=== PATIENT | male | born 1945 | race Caucasian/White ===

== ENCOUNTER 2017-04-14 10:18 | Inpatient (IN) ==
[2017-04-14] MEDS ORDERED: diphenhydrAMINE CAP 25 MG CAPSULE PO ONE (10:30)
[2017-04-14] MEDS ORDERED: ASPIRIN 325 MG TABLET PO ONE (10:30)
[2017-04-14] MEDS ORDERED: SODIUM CHLORIDE 0.45% 1,000 ML IV SCH (10:30)
[2017-04-14] MEDS ORDERED: DIAZEPAM 5 MG TABLET PO ONE (10:30)
--- NOTE | 2017-04-14 11:13 | EKG Report ---
Stationary ECG Study [facility] Test Date: 04/14/2017 11:15:19 AM Pat Name: JOSE JASSO Department: Room: C009 Gender: M Inside Sales Professional: : 1945 Requested by: Herber Mcgill Order Number: [id number] Reading MD: ENRRIQUE WASHBURN Intervals [place] Rate: 71 P: 55 VT: 161 QRS: 52 QRSD: 86 T: 100 QT: 387 QTc: 409 Interpretive Statements SINUS RHYTHM Electronically Signed On 04-14-17 13:13:31 CDT by ENRRIQUE WASHBURN [email or web address]
--- NOTE | 2017-04-14 11:24 | History and Physical Update ---
Sedation H&P Update - History and Physical H&P was reviewed, the patient examined and there: are no changes in the patients condition since last H&P was completed. (Patient had echocardiogram that showed what appears to be inferolateral wall hypokinesis but overall preserved ejection fraction) - Dictation Physical: refer to scanned H&P - Physical Exam Mental Status: alert and oriented Heart: regular rate and rhythm Lung: clear to auscultation Abdomen: within normal limits Vitals: within normal limits - Sedation Plan for Sedation: moderate Patient Consent: Procedure disscussed with patient and patinet has consented., Risks and benefits were discussed with patient,including infection,, bleeding, injury to surrounding structures, seizure, temporary nerve, Patient understands and accepts potential risks/benefits and agrees to, proceed. ASA Class: II Airway Assessment: Class III: Soft palate, base of uvula visible
--- NOTE | 2017-04-14 12:50 | XRay Report ---
XR chest 1V portable Indication: Chest pain Comparison: None Technique: Single frontal view of the chest. Findings: Borderline heart size. 1 cm pulmonary nodule versus sclerotic right rib [address] chest for further evaluation. No jesús pulmonary edema. Visualized osseous and surrounding soft tissue structures demonstrate no acute abnormality. Multilevel bridging osteophytes of the thoracic spine. IMPRESSION: As above. PROCEDURE INTERPRETED AT [facility] DEPARTMENT OF RADIOLOGY Final Report Signed by: Dr Lance Adamson
[2017-04-14] MEDS ORDERED: VERAPAMIL 5 MG/2 ML VIAL ONE (12:52)
[2017-04-14] MEDS ORDERED: MIDAZOLAM 2 MG/2 ML VIAL ONE (12:52)
[2017-04-14] MEDS ORDERED: HEPARIN/NACL 0.9% 2 UNITS/ML 1,000 ML IV ONE (12:52)
[2017-04-14] MEDS ORDERED: LIDOCAINE 1% 20 ML VIAL ONE (12:52)
[2017-04-14] MEDS ORDERED: NITROGLYCERIN DRIP 50 MG/250 ML BOTTLE IV ONE (12:52)
[2017-04-14] MEDS ORDERED: fentaNYL 100 MCG/2 ML VIAL ONE (12:52)
[2017-04-14] MEDS ORDERED: ENOXAPARIN 60 MG/0.6 ML SYRINGE ONE (13:19)
[2017-04-14] MEDS ORDERED: ACETAMINOPHEN 325 MG TABLET PO PRN (13:43)
[2017-04-14] MEDS ORDERED: MORPHINE 2 MG/1 ML SYRINGE IV PRN (13:43)
[2017-04-14] MEDS ORDERED: NITROGLYCERIN SL 0.4 MG TABLET SL PRN (13:43)
[2017-04-14] MEDS ORDERED: hydrALAZINE 20 MG/1 ML VIAL IV PRN (13:46)
--- NOTE | 2017-04-14 13:54 | Cardiac Catheterization ---
Date of Procedure:: 04/14/17 Pre-op Diagnosis: Unstable angina and regional wall motion abnormality on transthoracic echocardiogram Post-op diagnosis: other (Severe three-vessel coronary artery disease) Procedure: Procedures: 1. Selective left and right angiography 2. Left heart catheterization resting hemodynamics After signed an informed consent was obtained, the patient was prepped and draped in standard fashion for right radial access. Time out was recorded. 0.5 mL of 1% lidocaine were infiltrated in the skin and subcutaneous tissue overlying the right radial artery and Seldinger technique was utilized with a Angiocath to obtain access to the right radial artery. A [place] glide wire was then advanced into the midforearm under fluoroscopic guidance. The Angiocath was removed and a 6 Wallisian Terumo glide sheath was placed over the Glidewire. The sheath was aspirated and flushed and then 5 mg of verapamil and 200 g of nitroglycerin were given through the sheath. At this time an 035 J-wire was used to guide a [place] 6 Wallisian catheter into the central aorta across the aortic valve and into the ventricle. Pressure measurements and pullback measurements were obtained. The [place] catheter was then used to engage the left main coronary artery and multiple orthogonal views of the left system were obtained. The catheter then was torqued into the right coronary artery and orthogonal views of the right system were obtained. The catheter was then exchanged over the wire. The sheath was aspirated and flushed. The bottom precipitator operator reviewed the films. And a TR band was placed over the glide sheath and used for hemostasis. Total contrast exposure 95 cc of omnipaque Total x-ray exposure: 4.5 min fluoroscopy time and 308 mGy air Kerma Findings: 1. EF 60-65% by transthoracic echo with regional wall motion or mildly inferolateral ventricular myocardia 2. Hemodynamics LV: 106/5 EDP:10 Ao:104/54 3. Left main: Angiographically normal 4: Left anterior descending artery: The large vessel is diffusely diseased and has at least 3 locations greater than 80% to appear to be approach 90%. There is a small diagonal with his long diffusely diseased in the proximal segment is small diagonal but is the largest of the diagonal is therefore considered to be diagonal #1. It is highly diffusely diseased. 5: Left circumflex artery: Is a nondominant vessel there is a large obtuse marginal it bifurcates shortly after leaving AV groove it is subtotally occluded at the departure from the AV groove there is COMFORT II flow in both branches. This area subtotal occluded these are moderate size obtuse marginals 6: Right coronary artery: Is a very large dominant vessel the year is a long 90 % stenosis in the AV groove portion of the left circumflex 7: There is mild atheroma in the left subclavian but no high-grade stenosis the NADIA appears to be mature and very large. It is free of significant disease Assessment: 1. Severe three-vessel coronary disease with COMFORT II flow in the distribution of the left circumflex and critical stenoses in all 3 major branches as described above 2. Preserved ejection fraction of 65% by transthoracic echo with regional wall motion and remount the inferolateral ventricular myocardium consistent with the patient's anatomy 3. Obesity 4. Uncontrolled hypertension 5. Dyslipidemia 6. Obstructive sleep apnea Plan: 1. Therapeutic lifestyle changes. 2. Referral for coronary artery bypass grafting 3. Admit to the hospital due to progressive or unstable angina and regional wall motion abnormality 4. Aggressive medical therapy 5. Cardiac rehab consultation and consultation with diabetic education due to glucose intolerance 6. The patient will need polysomnography. We will consult Dr. Covarrubias Implants: None Anesthesia: moderate conscious sedation Surgeon / Physician: Aide Ho Photographic Enlarger Operator: none Estimated blood loss: none Specimens: none sent Condition: stable Disposition: floor - Medications / Follow-up
--- NOTE | 2017-04-14 16:11 | Cardiothoracic Progress Note ---
Cardiothoracic Subjective Interval history: Patient is a 71-year-old man who underwent cardiac catheterization this morning for recent onset of exertional chest discomfort. Cardiac catheterization demonstrated severe three-vessel coronary disease and the patient has been advised to remain in the hospital for surgery at the first possible time. I reviewed his catheterization films and agree with this recommendation and have discussed it with the patient and his and daughter. They are in agreement with proceeding on Monday. Exam (Progress Note) - Constitutional Vitals: Period Temp Pulse Resp BP Sys/Ryan Pulse Ox Last 24 Hr 97.4 F-97.8 F 62-82 16-20 107-156/63-84 95-100 Specialty Discharge - Follow Up or Referrals
--- NOTE | 2017-04-14 17:18 | EKG Report ---
Stationary ECG Study [facility] Test Date: 04/14/2017 5:16:45 PM Pat Name: JOSE JASSO Department: Room: 277 Gender: M Director Educational Radio: SERGIO : 1945 Requested by: Herber Mcgill Order Number: [id number] Reading MD: ENRRIQUE WASHBURN Intervals [place] Rate: 57 P: 49 MS: 169 QRS: 44 QRSD: 87 T: 131 QT: 413 QTc: 408 Interpretive Statements SINUS RHYTHM Electronically Signed On 04-14-17 18:22:55 CDT by ENRRIQUE WASHBURN [email or web address]
[2017-04-14] MEDS: CARVEDILOL 6.25 MG TABLET PO SCH (20:49)
[2017-04-14] MEDS: ATORVASTATIN 80 MG TABLET PO SCH (20:50)
[2017-04-14] MEDS: ZALEPLON 5 MG CAPSULE PO PRN (20:50)
[2017-04-15 05:08] LABS: Basophils # 0.1 10*3/uL (0.0-0.2); Basophils % 0.7 % (0.0-0.8); Eosinophils # 0.2 10*3/uL (0.0-0.87); Eosinophils % 3.2 % (0.00-10.9); Hematocrit 39.7 VOL% (42.0-52.0); Hemoglobin 13.1 GM/DL (14.0-18.0); Immature Granulocytes % 0.3 %; Immature Granulocytes Absolute 0.02 #; Lymphocytes # 1.6 10*3/uL (1.4-4.0); Lymphocytes % 21.6 % (21.2-54.2); Mean Corpuscular Hemoglobin 30 PG (27-34); Mean Corpuscular Volume 89.4 FL (87-102); Mean Platelet Volume 10.9 FL (9.6-12.0); Monocytes # 0.7 10*3/uL (0.11-0.8); Monocytes % 9.6 % (1.7-12.7); Neutrophils # 4.9 10*3/uL (1.4-7.4); Neutrophils % 64.6 % (38.7-73.9); Platelet Count 175 T/CUMM (130-400); Red Blood Count 4.44 MC/CUMM (3.8-5.5); Red Cell Distribution Width 13.3 % (9.3-17.3); White Blood Count 7.5 T/CUMM (4-12)
[2017-04-15 05:38] LABS: Calcium 8.5 MG/DL (8.5-10.1); Osmolality,Calculated 286.1 MOS/KG (273-304); Potassium 4.2 MMOL/L (3.5-5.1)
--- NOTE | 2017-04-15 08:00 | EKG Report ---
Stationary ECG Study [facility] Test Date: 04/15/2017 7:59:29 AM Pat Name: JOSE JASSO Department: Room: 277 Gender: M Client Service Manager: ANGELES : 1945 Requested by: Herber Mcgill Order Number: [id number] Reading MD: ENRRIQUE WASHBURN Intervals [place] Rate: 64 P: 51 IL: 168 QRS: 46 QRSD: 86 T: -39 QT: 393 QTc: 402 Interpretive Statements SINUS RHYTHM POSSIBLE INFERIOR MYOCARDIAL INFARCTION, OF INDETERMINATE AGE WITH POSTERIOR EXTENSION MODERATE T-WAVE ABNORMALITY, CONSIDER LATERAL ISCHEMIA Electronically Signed On 04-15-17 08:09:34 CDT by ENRRIQUE WASHBURN [email or web address]
[2017-04-15] MEDS ORDERED: LOSARTAN 25 MG TABLET PO SCH (09:00)
--- NOTE | 2017-04-15 09:23 | Cardiothoracic Progress Note ---
Cardiothoracic Subjective Interval history: Patient is ready for surgery on Monday. Discussed at some length with him and his and daughter. Exam (Progress Note) - Constitutional Vitals: Period Temp Pulse Resp BP Sys/Ryan Pulse Ox Last 24 Hr 97.4 F-99.2 F 57-87 16-20 89-156/51-84 93-100 Result/EKG - Labs CBC & BMP: 04/15/17 04:33 04/15/17 04:33 Labs: Laboratory Results - last 24 hr 04/14/17 04/14/17 04/15/17 16:43 19:52 04:33 WBC 7.5 RBC 4.44 Hgb 13.1 L Hct 39.7 L MCV 89.4 MCH 30 MCHC 33.0 RDW 13.3 Plt Count 175 MPV 10.9 Neut % (Auto) 64.6 Lymph % (Auto) 21.6 [place] % (Auto) 9.6 Eos % (Auto) 3.2 Baso % (Auto) 0.7 Neut # (Auto) 4.9 Lymph # (Auto) 1.6 [place] # (Auto) 0.7 Eos # (Auto) 0.2 Baso # (Auto) 0.1 Immature Gran % 0.3 Nucleated RBC % 0.0 Immature Gran # 0.02 Nucleated RBCs # 0.00 Immature Plt Fraction 0.0 Sodium Potassium Chloride Carbon Dioxide Anion Gap BUN Creatinine GFR Calculation BUN/Creatinine Ratio Glucose Calculated Osmolality Calcium Troponin I 0.070 H 0.075 H 04/15/17 04:33 WBC RBC Hgb Hct MCV MCH MCHC RDW Plt Count MPV Neut % (Auto) Lymph % (Auto) [place] % (Auto) Eos % (Auto) Baso % (Auto) Neut # (Auto) Lymph # (Auto) [place] # (Auto) Eos # (Auto) Baso # (Auto) Immature Gran % Nucleated RBC % Immature Gran # Nucleated RBCs # Immature Plt Fraction Sodium 142 Potassium 4.2 Chloride 107 Carbon Dioxide 28 Anion Gap 11.2 BUN 22 H Creatinine 1.00 GFR Calculation 90 BUN/Creatinine Ratio 22.00 H Glucose 116 H Calculated Osmolality 286.1 Calcium 8.5 Troponin I Specialty Discharge - Follow Up or Referrals
[2017-04-15] MEDS: PANTOPRAZOLE 40 MG TABLET PO SCH (09:48)
[2017-04-15] MEDS: ENOXAPARIN 30 MG/0.3 ML SYRINGE SUBCUT SCH ×2 (09:48→20:35)
[2017-04-15] MEDS: LOSARTAN 25 MG TABLET PO SCH (09:48)
[2017-04-15] MEDS: ASPIRIN EC 81 MG TABLET PO SCH (09:49)
[2017-04-15] MEDS: CARVEDILOL 6.25 MG TABLET PO SCH ×2 (09:49→17:14)
--- NOTE | 2017-04-15 12:12 | Cardiology Progress Note ---
Assessment and Plan - Time spent with patient Time spent with patient: Greater than 30 minutes (1) CAD (coronary artery disease) Status: Chronic Assessment and plan: SEE PLAN OF CARE LISTED BELOW Current Visit: Yes Qualifiers: Coronary Disease-Associated Artery/Lesion type: [place] artery [place] vs. transplanted heart: [place] heart Associated angina: without angina Qualified Code(s): I25.10 - Atherosclerotic heart disease of [place] coronary artery without angina pectoris (2) Hypertension Status: Chronic Assessment and plan: SEE PLAN OF CARE LISTED BELOW Current Visit: Yes (3) Dyslipidemia Status: Chronic Assessment and plan: SEE PLAN OF CARE LISTED BELOW Current Visit: Yes (4) Diabetes Status: Chronic Assessment and plan: SEE PLAN OF CARE LISTED BELOW Current Visit: Yes (5) Obesity (BMI 30.0-34.9) Status: Chronic Assessment and plan: SEE PLAN OF CARE LISTED BELOW Current Visit: Yes (6) Sleep disorder Status: Chronic Assessment and plan: SEE PLAN OF CARE LISTED BELOW Current Visit: Yes Cardiology - PN: Subj Interval history: SAP BW DEVELOPER: DR. SHANKS Patient was admitted April 14, 2017 with complaints concerning for angina. He underwent elective cardiac catheterization performed by Dr. Shanks for triple vessel coronary artery disease was noted. Dr. Mac was consulted for possible CABG. echocardiogram: EF 65%, no significant valvular abnormality. APRIL 15, 2017: Overnight, patient has done well. Denies chest pain, heaviness , tightness. Patient is currently scheduled for CABG Monday morning. His vital signs are stable as are his labs. Cardiac rehab has been consulted as well as personnel for diabetes education. Dr. Covarrubias with sleep medicine is also been consulted. At this time, patient continues to take appropriate medications including: Aspirin, atorvastatin, beta-reena, losartan. I will go ahead and discontinue his Lovenox after Monday morning's dose in preparation for his upcoming CABG. Will further discuss with Dr. Zapata and await additional recommendations. ASSESSMENT/PLAN: 1. CAD - 3VCAD. Scheduled for bypass surgery on Monday 2. HYPERTENSION - adequately controlled on beta blockade and ARB 3. DYSLIPIDEMIA - continue lipid-lowering agent. Fasting lipid profile in the morning 4. DIABETES - sliding scale insulin. blade grader operator has been consulted 5. SLEEP DISORDER - Dr. Covarrubias has been consulted by Dr. Mac Exam (Progress Note) - Constitutional Vitals: Period Temp Pulse Resp BP Sys/Ryan Pulse Ox Last 24 Hr 97.4 F-99.2 F 57-87 16-20 89-156/51-84 93-100 Exam: General: [Appears well with no apparent distress.] [Pleasant and cooperative. ] [Appears comfortable.] HEENT: [PERRL, normocephalic, atraumatic. Mucous membranes moist. No jaundice noted. Conjunctiva moist and clear, sclerae anicteric] Neck: No JVD/HJR, no thyromegaly or lymphadenopathy noted. No carotid bruit appreciated Cardiac: [Regular rate and rhythm.] [No murmur rub or gallop.] Lungs: [Clear to auscultation without accessory muscle use to assist the respiratory pattern.] Not using oxygen Abdomen: Soft, bowel sounds normoactive. Nontender and nondistended. No abdominal bruit or thrill noted. No masses noted. Musculoskeletal: No fluid collection. Decreased range of motion is noted. Extremities: No clubbing, cyanosis noted. [ No edema noted.] Upper extremity pulses 2+. Lower extremity pulses 2+. Capillary refill less than 3 seconds. Skin: No unusual lesions or rashes. No skin breakdown appreciated. Neuro: Awake, alert and oriented 3. Moves all extremities well without hemiparesis or paralysis. No essential tremor is appreciated. Result/EKG - Labs CBC & BMP: 04/15/17 04:33 04/15/17 04:33 Lab Results: I have reviewed the past 24 hour labs Labs: Laboratory Results - last 24 hr 04/14/17 04/14/17 04/15/17 16:43 19:52 04:33 WBC 7.5 RBC 4.44 Hgb 13.1 L Hct 39.7 L MCV 89.4 MCH 30 MCHC 33.0 RDW 13.3 Plt Count 175 MPV 10.9 Neut % (Auto) 64.6 Lymph % (Auto) 21.6 [place] % (Auto) 9.6 Eos % (Auto) 3.2 Baso % (Auto) 0.7 Neut # (Auto) 4.9 Lymph # (Auto) 1.6 [place] # (Auto) 0.7 Eos # (Auto) 0.2 Baso # (Auto) 0.1 Immature Gran % 0.3 Nucleated RBC % 0.0 Immature Gran # 0.02 Nucleated RBCs # 0.00 Immature Plt Fraction 0.0 Sodium Potassium Chloride Carbon Dioxide Anion Gap BUN Creatinine GFR Calculation BUN/Creatinine Ratio Glucose Calculated Osmolality Calcium Troponin I 0.070 H 0.075 H 04/15/17 04:33 WBC RBC Hgb Hct MCV MCH MCHC RDW Plt Count MPV Neut % (Auto) Lymph % (Auto) [place] % (Auto) Eos % (Auto) Baso % (Auto) Neut # (Auto) Lymph # (Auto) [place] # (Auto) Eos # (Auto) Baso # (Auto) Immature Gran % Nucleated RBC % Immature Gran # Nucleated RBCs # Immature Plt Fraction Sodium 142 Potassium 4.2 Chloride 107 Carbon Dioxide 28 Anion Gap 11.2 BUN 22 H Creatinine 1.00 GFR Calculation 90 BUN/Creatinine Ratio 22.00 H Glucose 116 H Calculated Osmolality 286.1 Calcium 8.5 Troponin I - Diagnostic Findings Procedure: Chest x-ray: report reviewed by me - EKG EKG results: interpreted by me EKG shows: sinus rhythm Specialty Discharge - Follow Up or Referrals
[2017-04-15] MEDS: ETODOLAC 400 MG TABLET PO SCH ×3 (15:42→20:38)
[2017-04-15] MEDS: ETODOLAC 500 MG PO SCH (17:44)
[2017-04-15] MEDS: ATORVASTATIN 80 MG TABLET PO SCH (20:36)
[2017-04-15] MEDS: ZALEPLON 5 MG CAPSULE PO PRN (20:36)
--- NOTE | 2017-04-16 08:11 | Cardiothoracic Progress Note ---
Cardiothoracic Subjective Interval history: Ready for surgery in the morning. Exam (Progress Note) - Constitutional Vitals: Period Temp Pulse Resp BP Sys/Ryan Pulse Ox Last 24 Hr 97.8 F-98.6 F 62-70 16-20 115-134/60-70 92-94 Result/EKG - Labs CBC & BMP: 04/15/17 04:33 04/15/17 04:33 Specialty Discharge - Follow Up or Referrals
[2017-04-16] MEDS: CARVEDILOL 6.25 MG TABLET PO SCH ×2 (08:55→17:38)
[2017-04-16] MEDS: LOSARTAN 25 MG TABLET PO SCH (08:55)
[2017-04-16] MEDS: PANTOPRAZOLE 40 MG TABLET PO SCH (08:56)
[2017-04-16] MEDS: ETODOLAC 500 MG PO SCH ×2 (08:56→17:38)
[2017-04-16] MEDS: ASPIRIN EC 81 MG TABLET PO SCH (08:56)
--- NOTE | 2017-04-16 10:55 | EKG Report ---
Stationary ECG Study [facility] Test Date: 04/16/2017 7:48:25 AM Pat Name: JOSE JASSO Department: Room: C009 Gender: M Residential Finish Carpenter: ANGELES : 1945 Requested by: Herber Mcgill Order Number: [id number] Reading MD: ENRRIQUE WASHBURN Intervals [place] Rate: 63 P: 57 DC: 158 QRS: 48 QRSD: 83 T: -20 QT: 387 QTc: 395 Interpretive Statements SINUS RHYTHM ST DEVIATION AND MODERATE T-WAVE ABNORMALITY, CONSIDER LATERAL ISCHEMIA INTERPRETATION BASED ON A DEFAULT AGE OF 40 YEARS Electronically Signed On 04-16-17 10:52:37 CDT by ENRRIQUE WASHBURN [email or web address]
[2017-04-16] MEDS ORDERED: CEFUROXIME INJ 1,500 MG in SODIUM CHLORIDE 0.9% 100 ML IV ONE (15:20)
[2017-04-16] MEDS ORDERED: DEXTROSE 50% 25 GM/50 ML SYRINGE IV PRN (15:20)
[2017-04-16] MEDS ORDERED: GLUCAGON 1 MG VIAL IM PRN (15:20)
[2017-04-16] MEDS ORDERED: hydrOXYzine HCL 25 MG TABLET PO PRN (15:25)
--- NOTE | 2017-04-16 15:28 | Cardiology Progress Note ---
Assessment and Plan - Time spent with patient Time spent with patient: Greater than 30 minutes (1) CAD (coronary artery disease) Status: Chronic Assessment and plan: Patient for coronary bypass doing tomorrow. Some itching of the hands, intermittent. No obvious cause We will use as needed Atarax 25 mg 3 times daily I discussed with patient about his coronary bypass grafting tomorrow. He is ready. Current Visit: Yes Qualifiers: Coronary Disease-Associated Artery/Lesion type: [place] artery [place] vs. transplanted heart: [place] heart Associated angina: without angina Qualified Code(s): I25.10 - Atherosclerotic heart disease of [place] coronary artery without angina pectoris (2) Itching Status: Acute Current Visit: Yes (3) Diabetes Status: Chronic Current Visit: Yes (4) Dyslipidemia Status: Chronic Current Visit: Yes (5) Hypertension Status: Chronic Current Visit: Yes (6) Obesity (BMI 30.0-34.9) Status: Chronic Current Visit: Yes (7) Sleep disorder Status: Chronic Current Visit: Yes Cardiology - PN: Subj Interval history: No chest pain or shortness of breath. Does complain of some itching on his hands at times. It is intermittent. Exam (Progress Note) - Constitutional Vitals: Period Temp Pulse Resp BP Sys/Ryan Pulse Ox Last 24 Hr 97.8 F-98.6 F 59-70 16-20 111-134/59-70 92-97 Exam: HEENT: Pupils equal, reactive to light and accommodation Neck: NoJVD or bruit Lungs clear to auscultation Heart: Regular rhythm rate with normal S1 and S2. Apical S4 Abdomen: No hepatosplenomegaly Spine/extremities: No clubbing, cyanosis, or edema Neuro: Nonfocal Psych: No depression or anxiety Result/EKG - Labs CBC & BMP: 04/15/17 04:33 04/15/17 04:33 Lab Results: I have reviewed the past 24 hour labs - Diagnostic Findings Procedure: Chest x-ray: report reviewed by me Quality Measures - VTE Contraindication to Pharmacological VTE Prophylaxis: High Risk of Bleeding Specialty Discharge - Follow Up or Referrals
[2017-04-16] MEDS ORDERED: SODIUM CHLORIDE 0.9% 1,000 ML IV SCH (15:30)
[2017-04-16 15:44] LABS: ABG Base Excess 1.5 MMOL/L (-2.5-2.5); ABG HCO3 25.7 MMOL/L (20-26); ABG Oxygen Saturation 94.9 % (95-100); ABG PCO2 38.5 MM HG (35-48); ABG PH 7.431 (7.35-7.45); ABG PO2 75.3 MM HG (80-95); Allen Test Positive; Pt O2 Delivery Device Room Air
[2017-04-16 15:51] LABS: Basophils # 0.1 10*3/uL (0.0-0.2); Basophils % 0.7 % (0.0-0.8); Eosinophils # 0.2 10*3/uL (0.0-0.87); Hematocrit 40.9 VOL% (42.0-52.0); Immature Granulocytes % 0.1 %; Immature Granulocytes Absolute 0.01 #; Lymphocytes # 1.4 10*3/uL (1.4-4.0); Lymphocytes % 19.9 % (21.2-54.2); Mean Corpuscular HGB Conc 34.2 GM/DL (32-36); Mean Corpuscular Hemoglobin 30 PG (27-34); Mean Platelet Volume 10.4 FL (9.6-12.0); Monocytes # 0.6 10*3/uL (0.11-0.8); Monocytes % 8.7 % (1.7-12.7); Neutrophils # 4.7 10*3/uL (1.4-7.4); Neutrophils % 67.6 % (38.7-73.9); Platelet Count 174 T/CUMM (130-400); Red Blood Count 4.65 MC/CUMM (3.8-5.5); Red Cell Distribution Width 13.3 % (9.3-17.3); White Blood Count 6.9 T/CUMM (4-12)
[2017-04-16 16:22] LABS: Albumin 3.5 G/DL (3.4-5.0); Bilirubin,Total 0.7 MG/DL (0.2-1.0); Calcium 8.5 MG/DL (8.5-10.1); Osmolality,Calculated 282.3 MOS/KG (273-304); Potassium 4.2 MMOL/L (3.5-5.1); Total Protein 6.4 G/DL (6.4-8.3)
[2017-04-16] MEDS: ATORVASTATIN 80 MG TABLET PO SCH (20:47)
[2017-04-16] MEDS: CHLORHEXIDINE 4% SOLN 118 ML BOTTLE TOP SCH (21:39)
[2017-04-16] MEDS: CHLORHEXIDINE 0.12% ORAL RINSE 60 ML BOTTLE SWISH/SPIT SCH (21:39)
[2017-04-17] MEDS ORDERED: PAPAVERINE 60 MG/2 ML VIAL ONE (04:38)
[2017-04-17] MEDS ORDERED: VANCOMYCIN 1,000 MG VIAL ONE ×2 (04:39→12:40)
[2017-04-17] MEDS: CHLORHEXIDINE 4% SOLN 118 ML BOTTLE TOP SCH (04:45)
[2017-04-17 05:18] LABS: PT Patient Result 10.2 SECS; Partial Thromboplastin Time 21.8 SECS (0-40)
[2017-04-17] MEDS: CARVEDILOL 6.25 MG TABLET PO SCH (05:52)
[2017-04-17] MEDS: PANTOPRAZOLE 40 MG TABLET PO SCH (05:52)
[2017-04-17] MEDS: CHLORHEXIDINE 0.12% ORAL RINSE 60 ML BOTTLE SWISH/SPIT SCH ×2 (05:53→21:54)
[2017-04-17] MEDS: LOSARTAN 25 MG TABLET PO SCH (05:53)
[2017-04-17] MEDS ORDERED: AMINOCAPROIC ACID 5,000 MG/20 ML VIAL IV ONE ×2 (05:57→06:45)
[2017-04-17] MEDS ORDERED: SODIUM CHLORIDE 0.9% 1,000 ML IV SCH (06:00)
[2017-04-17] MEDS ORDERED: CEFUROXIME INJ 1,500 MG in SODIUM CHLORIDE 0.9% 100 ML IV ONE (06:00)
[2017-04-17] MEDS ORDERED: SUFentanil 250 MCG/5 ML AMP ONE ×2 (06:01→06:02)
[2017-04-17] MEDS ORDERED: MIDAZOLAM 10 MG/2 ML VIAL ONE ×2 (06:02→14:36)
[2017-04-17] MEDS ORDERED: GLYCOPYRROLATE 0.4 MG/2 ML VIAL ONE ×2 (06:45→14:36)
[2017-04-17] MEDS ORDERED: CALCIUM CHLORIDE 1,000 MG/10 ML SYRINGE IV ONE ×2 (06:45→09:39)
[2017-04-17] MEDS ORDERED: VECURONIUM 10 MG VIAL IV ONE (06:45)
[2017-04-17 07:58] LABS: ABG Base Excess -1.7 MMOL/L (-2.5-2.5); ABG Oxygen Saturation 99.6 % (95-100); ABG PCO2 47.3 MM HG (35-48); ABG PH 7.326 (7.35-7.45); Glucose Heart Surgery 110 MG/DL (74-106); Hemoglobin Heart Surgery 12.4 G/DL (14.0-18.0); Ionized Calcium Arterial 1.17 MMOL/L (1.21-1.46); PCO2 Patient Temp Arterial 47.3 MMHG; PH Patient Temp Arterial 7.326; Patient Temperature 37 CELCIUS; Potassium Heart/CVR 3.7 MMOL/L (3.5-5.1); Sodium Heart/CVR 141 MMOL/L (135-145)
[2017-04-17 07:59] LABS: Apearance,Urine CLEAR (Clear); Bilirubin,Urine Negative (Negative); Blood, Urine Large mg/dL (Negative); Glucose,Urine (UA) Negative (Negative); Ketones,Urine Negative (Negative); Mucus,Urine Occasional /LPF (Occasional); Nitrite,Urine Negative (Negative); Protein,Urine Negative; RBC,Urine 158 /HPF (0-4); Squamous Epithelial Cell,Urine Occasional /HPF (0-10); Urine Color Straw (Yellow); Urine Specific Gravity 1.009 (1.001-1.035); WBC,Urine 1 /HPF (0-6)
[2017-04-17] MEDS ORDERED: PHENYLEPHRINE DRIP 20 MG/250 ML PREMIX IV ONE ×2 (09:39→11:25)
[2017-04-17] MEDS ORDERED: HEPARIN/NACL 0.9% 2 UNITS/ML 500 ML IV ONE (09:39)
[2017-04-17] MEDS ORDERED: NITROGLYCERIN DRIP 50 MG/250 ML BOTTLE IV ONE (09:39)
[2017-04-17 09:52] LABS: Hemoglobin Heart Surgery 8.9 G/DL (14.0-18.0); PH Patient Temp Venous 7.427; PO2 Patient Temp Venous 36.8 MM HG; Potassium Heart/CVR 5.8 MMOL/L (3.5-5.1); VBG Base Excess 1.2 MEQ/L (0-4); VBG HCO3 26.6 MEQ/L (24-28); VBG Oxygen Saturation 81.4 %; VBG PCO2 45.6 MMHG (41-51); VBG PH 7.383; VBG PO2 45.4 MMHG (17-40)
[2017-04-17] MEDS ORDERED: POTASSIUM CHLORIDE RIDER 100 ML IV ONE (09:56)
[2017-04-17 10:35] LABS: Hemoglobin Heart Surgery 9.9 G/DL (14.0-18.0); PCO2 Patient Temp Venous 36.1 MM HG; PH Patient Temp Venous 7.456; PO2 Patient Temp Venous 33.3 MM HG; VBG Base Excess 0.9 MEQ/L (0-4); VBG HCO3 25.3 MEQ/L (24-28); VBG Oxygen Saturation 76.9 %; VBG PCO2 39.4 MMHG (41-51); VBG PH 7.426; VBG PO2 38.4 MMHG (17-40)
[2017-04-17 10:36] LABS: Potassium Heart/CVR 6.1 MMOL/L (3.5-5.1)
[2017-04-17] MEDS ORDERED: ALBUMIN 5% 12.5 GM/250 ML VIAL IV ONE ×2 (11:14)
[2017-04-17] MEDS ORDERED: INSULIN REGULAR DRIP 100 ML IV ONE (11:14)
[2017-04-17 11:24] LABS: ABG Base Excess -0.5 MMOL/L (-2.5-2.5); ABG HCO3 24.4 MMOL/L (20-26); ABG Oxygen Saturation 97.3 % (95-100); ABG PH 7.393 (7.35-7.45); ABG PO2 113.7 MM HG (80-95); ABG TCO2 25.7 MMOL/L (23-27); Glucose Heart Surgery 173 MG/DL (74-106); Ionized Calcium Arterial 1.28 MMOL/L (1.21-1.46); PH Patient Temp Arterial 7.393; PO2 Patient Temp Arterial 113.7 MM HG; Patient Temperature 37 CELCIUS; Potassium Heart/CVR 4.8 MMOL/L (3.5-5.1); Sodium Heart/CVR 137 MMOL/L (135-145)
[2017-04-17] MEDS ORDERED: DEXTROSE 5% KCL 20 MEQ 20 MEQ/1,000 ML BAG IV ONE (11:25)
[2017-04-17] MEDS ORDERED: PROTAMINE SULFATE 250 MG/25 ML VIAL IV ONE (11:26)
[2017-04-17] MEDS ORDERED: HEPARIN 10,000 UNIT/10 ML VIAL ONE (11:26)
[2017-04-17] MEDS ORDERED: MAGNESIUM SULFATE 1 GM/2 ML VIAL ONE (11:26)
[2017-04-17] MEDS ORDERED: FUROSEMIDE 20 MG/2 ML VIAL ONE (11:26)
[2017-04-17] MEDS ORDERED: SODIUM BICARBONATE 50 MEQ/50 ML SYRINGE IV ONE (11:26)
[2017-04-17] MEDS ORDERED: methylPREDNISolone SOD SUC 1,000 MG/8 ML VIAL ONE (11:26)
[2017-04-17] MEDS ORDERED: ALBUMIN 25% 25 GM/100 ML VIAL IV ONE (11:26)
[2017-04-17] MEDS ORDERED: MANNITOL 12.5 GM/50 ML VIAL IV ONE (11:26)
[2017-04-17] MEDS ORDERED: PROTAMINE SULFATE 50 MG/5 ML VIAL IV ONE ×3 (11:27→12:10)
[2017-04-17] MEDS ORDERED: PHENYLEPHRINE DRIP 40 MG/250 ML PREMIX IV ONE (11:39)
[2017-04-17] MEDS: LACTATED RINGERS 250 ML IV PRN ×16 (11:50→20:36)
[2017-04-17] MEDS ORDERED: MORPHINE 10 MG/1 ML VIAL IV PRN (12:08)
[2017-04-17] MEDS ORDERED: MIDAZOLAM 10 MG/2 ML VIAL IV PRN (12:08)
[2017-04-17] MEDS ORDERED: CALCIUM CHLORIDE 1,000 MG/10 ML SYRINGE IV PRN (12:08)
[2017-04-17] MEDS ORDERED: POTASSIUM CHLORIDE RIDER 10 MEQ in PREMIX 1 EACH IV PRN (12:08)
[2017-04-17] MEDS ORDERED: MORPHINE 2 MG/1 ML SYRINGE IV PRN (12:08)
[2017-04-17] MEDS ORDERED: VECURONIUM 10 MG VIAL IV PRN ×2 (12:08)
[2017-04-17] MEDS ORDERED: INSULIN REGULAR 100 UNIT/ML IV PRN (12:08)
[2017-04-17] MEDS ORDERED: NITROPRUSSIDE 100 MG in DEXTROSE 5% 250 ML IV PRN (12:08)
[2017-04-17] MEDS ORDERED: ONDANSETRON 4 MG/2 ML VIAL IV PRN (12:08)
[2017-04-17] MEDS ORDERED: ACETAMINOPHEN 650 MG SUPP RECTAL PRN (12:08)
[2017-04-17] MEDS ORDERED: MIDAZOLAM 2 MG/2 ML VIAL IV PRN (12:08)
[2017-04-17] MEDS ORDERED: DEXTROSE 50% 25 GM/50 ML SYRINGE IV PRN ×2 (12:08)
[2017-04-17] MEDS ORDERED: INSULIN REGULAR 100 UNIT/ML IV ONE (12:08)
[2017-04-17] MEDS ORDERED: MAGNESIUM SULF RIDER 4 GM in PREMIX 1 EACH IV PRN (12:08)
[2017-04-17] MEDS ORDERED: MAGNESIUM SULF RIDER 2 GM in PREMIX 1 EACH IV PRN (12:08)
[2017-04-17] MEDS: PHENYLEPHRINE DRIP 40 MG/250 ML PREMIX IV PRN ×2 (12:21→21:55)
--- NOTE | 2017-04-17 12:22 | Cardiology Progress Note ---
Luis Carlos Parra Vanessa RN, am scribing for, and in the presence of, Aide Shanks DO 12 :22. Assessment and Plan - Time spent with patient Time spent with patient: Greater than 30 minutes (1) CAD (coronary artery disease) Status: Chronic Assessment and plan: Status post three-vessel coronary bypass grafting Current Visit: Yes Qualifiers: Coronary Disease-Associated Artery/Lesion type: [place] artery [place] vs. transplanted heart: [place] heart Associated angina: without angina Qualified Code(s): I25.10 - Atherosclerotic heart disease of [place] coronary artery without angina pectoris (2) Diabetes Status: Chronic Assessment and plan: Chronic and uncontrolled. He has a history of glucose intolerance. Diabetes education has been consulted, and they have seen patient this admission. Review of glucose levels over the weekend show relatively stable glycemia. Current Visit: Yes (3) Dyslipidemia Status: Chronic Assessment and plan: Continue statin. Recent lipid panel in clinic with total cholesterol 239, triglycerides 148, HDL 48, LDL 162. Atorvastatin was increased to 80 mg PO daily. Current Visit: Yes (4) Hypertension Status: Chronic Assessment and plan: Relatively well controlled on current antihypertensive regimen. Continue to monitor and adjust as medical condition evolves. Current Visit: Yes (5) Obesity (BMI 30.0-34.9) Status: Chronic Assessment and plan: Dietitian consult has been placed. Current Visit: Yes (6) Sleep disorder Status: Chronic Assessment and plan: History of obstructive sleep apnea. Sleep medicine has been consulted for polysomnography. Current Visit: Yes (7) GERD (gastroesophageal reflux disease) Status: Chronic Assessment and plan: Continue PPI. Current Visit: Yes Cardiology - PN: Subj Interval history: PRIMARY PHARMACY ANALYST: DR. SHANKS SUMMARY: Mr. Mccloud, 71 year old WM, with risk factors significant for: Hypertension, diabetes, dyslipidemia, obesity, and is a former smoker. Patient presented to [facility] on April 14 for left heart catheterization due to progressive unstable angina over the course of approximately 1 year and echocardiogram with regional wall motion abnormality. Cardiac cath revealed severe three-vessel coronary artery disease, preserved EF 65%. He was admitted to [facility] telemetry unit for close observation, and cardiovascular surgery consulted for bypass grafting. Over the weekend, he was felt by Dr. Zapata. He had no anginal complaint, and vitals were stable. He has had some itching of the hands and Atarax was prescribed. CABG scheduled for April [address] Mac. March: Mr. Mccloud is in OR this morning for scheduled CABG. Family present in telemetry room. They report patient slept well overnight and had no complaints. Will follow up later this afternoon once patient arrives to CVR. PLT count 18,000 noted this AM (174,000 previously) I discussed with Dr. Mac in the ICU post procedure saw and examined the patient as he was getting settled down. He looks quite good his hemodynamics are stable he is in sinus rhythm. Exam (Progress Note) - Constitutional Vitals: Period Temp Pulse Resp BP Sys/Ryan Pulse Ox Last 24 Hr 97.8 F-98.6 F 61-72 18-20 106-151/58-78 93-97 General appearance: normal weight - Respiratory Respiratory exam: Present: clear to auscultation bilaterally - Cardiovascular Cardiovascular exam: Present: regular rate and rhythm (He has a pericardial rub his drains remain in place) - GI/Abdominal GI/Abdominal exam: Present: normal bowel sounds - Extremities Exam Extremities exam: Present: normal inspection (Graft sites are dressed and dry) - Neurological Exam Neurological exam: Present: other (Sedated postoperative) Result/EKG - Labs CBC & BMP: 04/17/17 11:23 04/16/17 15:45 Lab Results: I have reviewed the past 24 hour labs Labs: Laboratory Results - last 24 hr 04/16/17 04/16/17 04/16/17 15:20 15:45 15:45 WBC 6.9 RBC 4.65 Hgb 14.0 Hct 40.9 L MCV 88.0 MCH 30 MCHC 34.2 RDW 13.3 Plt Count 174 MPV 10.4 Neut % (Auto) 67.6 Lymph % (Auto) 19.9 L [place] % (Auto) 8.7 Eos % (Auto) 3.0 Baso % (Auto) 0.7 Neut # (Auto) 4.7 Lymph # (Auto) 1.4 [place] # (Auto) 0.6 Eos # (Auto) 0.2 Baso # (Auto) 0.1 Immature Gran % 0.1 Nucleated RBC % 0.0 Immature Gran # 0.01 Nucleated RBCs # 0.00 Immature Plt Fraction 0.0 INR PT Patient/Control Mix Circ Anticoag PTT Patient Temperature ABG pH 7.431 ABG pH at Pt Temp ABG pCO2 38.5 ABG pCO2 at Pt Temp ABG pO2 75.3 L ABG pO2 at Pt Temp ABG HCO3 25.7 ABG Total CO2 22.0 L ABG O2 Saturation 94.9 L ABG Base Excess 1.5 ABG Sodium Hemoglobin Hematocrit Ionized Calcium FiO2 21.00 Sodium 141 Potassium 4.2 Chloride 107 Carbon Dioxide 27 Anion Gap 11.2 BUN 18 Creatinine 0.90 GFR Calculation 102 BUN/Creatinine Ratio 20.00 Glucose 104 POC Glucose Calculated Osmolality 282.3 Calcium 8.5 Total Bilirubin 0.70 AST 12 ALT 26 Alkaline Phosphatase 65 Total Protein 6.4 Albumin 3.5 Globulin 2.9 Albumin/Globulin Ratio 1.2 Urine Color Urine Appearance Urine pH Ur Specific [place] Urine Protein Urine Glucose (UA) Urine Ketones Urine Blood Urine Nitrate Urine Bilirubin Urine Urobilinogen Urine Leukocytes Urine RBC Urine WBC Ur Squamous Epith Cells Urine Mucus Ur Culture Indicated? Blood Type Antibody Screen Crossmatch 04/16/17 04/16/17 04/17/17 15:45 15:45 04:35 WBC RBC Hgb Hct MCV MCH MCHC RDW Plt Count MPV Neut % (Auto) Lymph % (Auto) [place] % (Auto) Eos % (Auto) Baso % (Auto) Neut # (Auto) Lymph # (Auto) [place] # (Auto) Eos # (Auto) Baso # (Auto) Immature Gran % Nucleated RBC % Immature Gran # Nucleated RBCs # Immature Plt Fraction INR 1.0 PT Patient/Control Mix 10.2 Circ Anticoag PTT 21.8 Patient Temperature ABG pH ABG pH at Pt Temp ABG pCO2 ABG pCO2 at Pt Temp ABG pO2 ABG pO2 at Pt Temp ABG HCO3 ABG Total CO2 ABG O2 Saturation ABG Base Excess ABG Sodium Hemoglobin Hematocrit Ionized Calcium FiO2 Sodium Potassium Chloride Carbon Dioxide Anion Gap BUN Creatinine GFR Calculation BUN/Creatinine Ratio Glucose POC Glucose Calculated Osmolality Calcium Total Bilirubin AST ALT Alkaline Phosphatase Total Protein Albumin Globulin Albumin/Globulin Ratio Urine Color Urine Appearance Urine pH Ur Specific [place] Urine Protein Urine Glucose (UA) Urine Ketones Urine Blood Urine Nitrate Urine Bilirubin Urine Urobilinogen Urine Leukocytes Urine RBC Urine WBC Ur Squamous Epith Cells Urine Mucus Ur Culture Indicated? Blood Type A POSITIVE A POSITIVE Antibody Screen Negative Crossmatch See Detail 04/17/17 04/17/17 04/17/17 04:50 07:05 07:58 WBC RBC Hgb Hct MCV MCH MCHC RDW Plt Count MPV Neut % (Auto) Lymph % (Auto) [place] % (Auto) Eos % (Auto) Baso % (Auto) Neut # (Auto) Lymph # (Auto) [place] # (Auto) Eos # (Auto) Baso # (Auto) Immature Gran % Nucleated RBC % Immature Gran # Nucleated RBCs # Immature Plt Fraction INR PT Patient/Control Mix Circ Anticoag PTT Patient Temperature 37 ABG pH 7.326 L ABG pH at Pt Temp 7.326 ABG pCO2 47.3 ABG pCO2 at Pt Temp 47.3 ABG pO2 331.0 H ABG pO2 at Pt Temp 331.0 ABG HCO3 23.0 ABG Total CO2 22.0 L ABG O2 Saturation 99.6 ABG Base Excess -1.7 ABG Sodium 141 Hemoglobin 12.4 L Hematocrit 38.0 L Ionized Calcium 1.17 L FiO2 Sodium Potassium 3.7 Chloride Carbon Dioxide Anion Gap BUN Creatinine GFR Calculation BUN/Creatinine Ratio Glucose 110 H POC Glucose 98 Calculated Osmolality Calcium Total Bilirubin AST ALT Alkaline Phosphatase Total Protein Albumin Globulin Albumin/Globulin Ratio Urine Color Straw Urine Appearance Clear Urine pH 6.0 Ur Specific [place] 1.009 Urine Protein Negative Urine Glucose (UA) Negative Urine Ketones Negative Urine Blood Large Urine Nitrate Negative Urine Bilirubin Negative Urine Urobilinogen 4.0 H Urine Leukocytes Negative Urine RBC 158 Urine WBC 1 Ur Squamous Epith Cells Occasional Urine Mucus Occasional Ur Culture Indicated? Not indicated Blood Type Antibody Screen Crossmatch 04/17/17 07:59 WBC RBC Hgb Hct MCV MCH MCHC RDW Plt Count 18 L* D MPV Neut % (Auto) Lymph % (Auto) [place] % (Auto) Eos % (Auto) Baso % (Auto) Neut # (Auto) Lymph # (Auto) [place] # (Auto) Eos # (Auto) Baso # (Auto) Immature Gran % Nucleated RBC % Immature Gran # Nucleated RBCs # Immature Plt Fraction INR PT Patient/Control Mix Circ Anticoag PTT Patient Temperature ABG pH ABG pH at Pt Temp ABG pCO2 ABG pCO2 at Pt Temp ABG pO2 ABG pO2 at Pt Temp ABG HCO3 ABG Total CO2 ABG O2 Saturation ABG Base Excess ABG Sodium Hemoglobin Hematocrit Ionized Calcium FiO2 Sodium Potassium Chloride Carbon Dioxide Anion Gap BUN Creatinine GFR Calculation BUN/Creatinine Ratio Glucose POC Glucose Calculated Osmolality Calcium Total Bilirubin AST ALT Alkaline Phosphatase Total Protein Albumin Globulin Albumin/Globulin Ratio Urine Color Urine Appearance Urine pH Ur Specific [place] Urine Protein Urine Glucose (UA) Urine Ketones Urine Blood Urine Nitrate Urine Bilirubin Urine Urobilinogen Urine Leukocytes Urine RBC Urine WBC Ur Squamous Epith Cells Urine Mucus Ur Culture Indicated? Blood Type Antibody Screen Crossmatch - Diagnostic Findings Procedure: Chest x-ray: image reviewed by me, report reviewed by me - EKG EKG results: interpreted by me, no acute changes EKG shows: sinus rhythm Quality Measures - VTE Contraindication to Pharmacological VTE Prophylaxis: High Risk of Bleeding Specialty Discharge - Follow Up or Referrals Georgia Parra Shea, , personally performed the services described in this documentation, ascribed by Geri Aldridge RN in my presence, and it is both accurate and complete .
--- NOTE | 2017-04-17 12:27 | Operative Note ---
Date of procedure: 04/17/17 Pre-op diagnosis: Coronary artery disease Post-op diagnosis: same Procedure: Procedure: Coronary bypass grafting 3 with a left internal mammary graft to the obtuse marginal coronary artery and saphenous vein graft to the anterior descending and right coronary arteries. Findings: Patient is a 71-year-old man with recent onset of substernal chest pain cardiac catheterization demonstrating critical three-vessel coronary disease. At the time of surgery left ventricular function was noted to be essentially normal and a left internal mammary graft was placed to the circumflex marginal coronary artery and saphenous vein graft placed to the anterior descending and right coronary arteries. Distal vessels were of good size and free of disease at the site of anastomosis. Patient tolerated procedure well and was returned to recovery in satisfactory condition. Procedure: Patient brought to the operating room placed on the operating table in supine position. After satisfactory induction of general anesthesia the chest abdomen and legs were prepped and draped in sterile fashion. Greater saphenous vein was harvested from the right lower leg and prepared as an arterial graft. Incision in the leg was closed with 3-0 subcutaneous Monocryl and 3-0 subcuticular Monocryl. A standard sternotomy incision was made and the sternum was divided and the heart suspended in a pericardial cradle. Left internal mammary artery was dissected free and prepared as an arterial graft. It was relatively short in length and therefore the plan was to place it to the obtuse marginal coronary artery for grafting. Patient was prepared for cardiopulmonary bypass with systemic heparinization cannulation of the ascending aorta and right atrium. Cardiopulmonary bypass was begun and the aorta was crossclamped and the heart arrested with cardioplegia solution injected into the aortic root. Heart was protected during the period of crossclamping with topical saline slush. Distal anastomoses were constructed as noted above and then the aorta was unclamped reestablishing cardiac action. Proximal anastomoses were constructed between the inflow ends of the saphenous vein graft in the ascending aorta. Following this the patient was weaned from cardiopulmonary bypass without difficulty and heparin effect was reversed with protamine. Decannulation was carried out in usual fashion and the defects in the ascending aorta and right atrium closed with 3-0 Prolene. Heparin effect having been reversed with protamine the operative field was inspected for hemostasis and when this was considered adequate the incision was closed with interrupted stainless steel wire and the sternum and running suture 0 Monopril in the presternal fascia. Skin was closed with running 3-0 subcuticular Monocryl. Chest tubes were left in the anterior mediastinum and brought out through separate stab incisions. Sterile dressings were applied and the patient was returned to recovery in satisfactory condition. Anesthesia: JACKLYN Surgeon / Physician: Montrell Mac Estimated blood loss: other (Unable to determine because of cardiopulmonary bypass) Condition: stable Disposition: ICU Results - Labs CBC & BMP: 04/17/17 11:23 04/16/17 15:45 Discharge Plan - Discharge Medications No Action Omeprazole [Prilosec] 20 mg PO DAILY Lisinopril 10 mg PO DAILY Etodolac 500 mg PO BID W/MEALS Aspirin 81 mg PO DAILY Simvastatin 40 mg PO BEDTIME Carvedilol [Coreg] 3.125 mg PO DAILY - Follow Up or Referral - Forms/Instructions Instructions: Coronary Artery Disease (GEN), Left Heart Catheterization (DC), How to Stop Smoking (GEN), Heart Healthy Diet (GEN), Cigarette Smoking and Your Health (GEN)
[2017-04-17] MEDS ORDERED: SODIUM CHLORIDE 0.45% 1,000 ML IV SCH ×2 (12:30)
[2017-04-17] MEDS ORDERED: INSULIN REGULAR DRIP 100 ML IV SCH (12:30)
[2017-04-17 12:33] LABS: Basophils % 0.3 % (0.0-0.8); Eosinophils # 0.2 10*3/uL (0.0-0.87); Eosinophils % 1.2 % (0.00-10.9); Hematocrit 31.2 VOL% (42.0-52.0); Hemoglobin 10.6 GM/DL (14.0-18.0); Immature Granulocytes % 0.5 %; Immature Granulocytes Absolute 0.07 #; Lymphocytes # 1.7 10*3/uL (1.4-4.0); Lymphocytes % 11.7 % (21.2-54.2); Mean Corpuscular Hemoglobin 31 PG (27-34); Mean Corpuscular Volume 89.7 FL (87-102); Neutrophils # 11.5 10*3/uL (1.4-7.4); Neutrophils % 79.3 % (38.7-73.9); Platelet Count 123 T/CUMM (130-400); Red Blood Count 3.48 MC/CUMM (3.8-5.5); Red Cell Distribution Width 13.5 % (9.3-17.3); White Blood Count 14.5 T/CUMM (4-12)
[2017-04-17 12:35] LABS: ABG Base Excess -0.5 MMOL/L (-2.5-2.5); ABG HCO3 23.9 MMOL/L (20-26); ABG Oxygen Saturation 94.3 % (95-100); ABG PCO2 43.9 MM HG (35-48); ABG PH 7.363 (7.35-7.45); ABG PO2 77.6 MM HG (80-95); ABG TCO2 22.7 MMOL/L (23-27); Potassium Heart/CVR 3.7 MMOL/L (3.5-5.1)
[2017-04-17 12:36] LABS: Glucose Heart Surgery 147 MG/DL (74-106); Hematocrit Heart Surgery 32.1 PERCENT (42-52); Hemoglobin Heart Surgery 10.4 G/DL (14.0-18.0)
[2017-04-17 12:53] LABS: INR 1.4; PT Patient Result 14.7 SECS
[2017-04-17] MEDS: KETOROLAC 30 MG/1 ML VIAL IV SCH ×2 (13:13→18:21)
[2017-04-17 13:19] LABS: Albumin 2.9 G/DL (3.4-5.0); Bilirubin,Total 1.5 MG/DL (0.2-1.0); Calcium 8.2 MG/DL (8.5-10.1); Magnesium 2.1 MG/DL (1.8-2.4); Potassium 3.8 MMOL/L (3.5-5.1)
[2017-04-17 13:26] LABS: CKMB % 6.7 %
[2017-04-17 13:29] LABS: Troponin I Only 2.1 NG/ML (0.00-0.045)
--- NOTE | 2017-04-17 14:22 | Operative Note ---
Date of procedure: 04/17/17 Pre-op diagnosis: Postoperative hemorrhage Post-op diagnosis: same (Same. Bleeding found from the distal circumflex anastomosis.) Procedure: Procedure: Patient brought to the operating room placed in the operating table in supine position. After satisfactory induction of general anesthesia the chest was prepped and draped in sterile fashion. The previous sternotomy incision was reopened and sternal wires were removed the operative field was inspected. There was significant hematoma in the pericardial space and when this was removed it was clear that there was bleeding from the distal anastomosis of the internal mammary artery to the circumflex coronary artery. This was controlled with a single suture of 6-0 Prolene. Thereafter the patient was inspected for further hemostasis and this was considered adequate and the incision was closed in usual fashion with interrupted stainless steel wire and the sternum and 0 Monopril in the presternal fascia and 3-0 Monocryl in the skin. Sterile dressings were applied and the patient was returned to recovery in satisfactory condition. Anesthesia: GETA Surgeon / Physician: Montrell Mac Condition: stable Disposition: ICU Results - Labs CBC & BMP: 04/17/17 12:20 04/17/17 12:20 Discharge Plan - Discharge Medications No Action Omeprazole [Prilosec] 20 mg PO DAILY Lisinopril 10 mg PO DAILY Etodolac 500 mg PO BID W/MEALS Aspirin 81 mg PO DAILY Simvastatin 40 mg PO BEDTIME Carvedilol [Coreg] 3.125 mg PO DAILY - Follow Up or Referral - Forms/Instructions Instructions: Coronary Artery Disease (GEN), Left Heart Catheterization (DC), How to Stop Smoking (GEN), Heart Healthy Diet (GEN), Cigarette Smoking and Your Health (GEN)
[2017-04-17 14:28] LABS: ABG Base Excess -1.1 MMOL/L (-2.5-2.5); ABG HCO3 23.4 MMOL/L (20-26); ABG Oxygen Saturation 95.6 % (95-100); ABG PCO2 43.3 MM HG (35-48); ABG PH 7.359 (7.35-7.45); ABG PO2 83.3 MM HG (80-95); ABG TCO2 21.6 MMOL/L (23-27); Glucose Heart Surgery 165 MG/DL (74-106); Hematocrit Heart Surgery 38.8 PERCENT (42-52); Hemoglobin Heart Surgery 12.6 G/DL (14.0-18.0)
[2017-04-17] MEDS ORDERED: SODIUM CHLORIDE 0.9% 250 ML IV ONE (14:36)
[2017-04-17] MEDS ORDERED: SEVOFLURANE 1 UNIT/15 MINUTE INH ONE (14:36)
[2017-04-17] MEDS ORDERED: LACTATED RINGERS 1,000 ML IV ONE (14:36)
[2017-04-17] MEDS ORDERED: SODIUM CHLORIDE 0.9% 2,000 ML IV ONE (14:36)
[2017-04-17] MEDS ORDERED: ePHEDrine 50 MG/ML AMP ONE (14:37)
[2017-04-17] MEDS: ALBUMIN 5% 12.5 GM in PREMIX 1 EACH IV PRN ×4 (14:45→19:38)
--- NOTE | 2017-04-17 15:42 | XRay Report ---
XR chest 1V portable Indication: Line placement. Chest one view: Comparison 04/14/2017. Patient has undergone median sternotomy. Endotracheal tube terminates 3 cm cephalad the renato. NG tube terminates off the lower edge of the image. [place] catheter tip projects over the right lower lobe pulmonary artery. Right IJ central line tip is in the right atrium. Borderline to mild cardiomegaly and normal mediastinal contour stable. Lung bones are decreased from the preoperative film with progressive right basilar atelectasis. Complete opacification of the left lung base is noted. 2 presumed mediastinal drains are seen just left of midline. No pneumothoraces. Impression: 1. Lines and tubes as described. 2. Marked pulmonary hypoinflation. 3. Complete obscuration of left hemidiaphragm, atelectasis. PROCEDURE INTERPRETED AT [facility] DEPARTMENT OF RADIOLOGY Final Report Signed by: Andres Waldron M.D.
[2017-04-17 16:24] LABS: ABG Base Excess -0.2 MMOL/L (-2.5-2.5); ABG HCO3 24.2 MMOL/L (20-26); ABG Oxygen Saturation 99.2 % (95-100); ABG PCO2 42.6 MM HG (35-48); ABG PH 7.376 (7.35-7.45); ABG TCO2 22.7 MMOL/L (23-27); Glucose Heart Surgery 146 MG/DL (74-106); Hematocrit Heart Surgery 32.3 PERCENT (42-52); Hemoglobin Heart Surgery 10.4 G/DL (14.0-18.0); Potassium Heart/CVR 3.9 MMOL/L (3.5-5.1)
[2017-04-17] MEDS: POTASSIUM CHLORIDE RIDER 20 MEQ in PREMIX 1 EACH IV PRN ×2 (16:38→18:51)
[2017-04-17 16:43] LABS: Hematocrit Heart Surgery 30.5 PERCENT (42-52); Hemoglobin Heart Surgery 9.9 G/DL (14.0-18.0); PCO2 Patient Temp Venous 51.3 MM HG; PH Patient Temp Venous 7.32; PO2 Patient Temp Venous 37.3 MM HG; VBG Base Excess -0.3 MEQ/L (0-4); VBG HCO3 23.6 MEQ/L (24-28); VBG Oxygen Saturation 62.1 %; VBG PCO2 51.3 MMHG (41-51); VBG PH 7.32; VBG PO2 37.3 MMHG (17-40)
[2017-04-17 17:31] LABS: ABG Base Excess -0.6 MMOL/L (-2.5-2.5); ABG HCO3 23.9 MMOL/L (20-26); ABG Oxygen Saturation 97.8 % (95-100); ABG PCO2 43.1 MM HG (35-48); ABG PH 7.368 (7.35-7.45); ABG TCO2 22.5 MMOL/L (23-27); Glucose Heart Surgery 137 MG/DL (74-106); Hematocrit Heart Surgery 32.6 PERCENT (42-52); Hemoglobin Heart Surgery 10.5 G/DL (14.0-18.0); Potassium Heart/CVR 4.7 MMOL/L (3.5-5.1)
[2017-04-17 18:39] LABS: ABG Base Excess 0.3 MMOL/L (-2.5-2.5); ABG HCO3 24.7 MMOL/L (20-26); ABG Oxygen Saturation 97.6 % (95-100); ABG PCO2 43.7 MM HG (35-48); ABG PH 7.377 (7.35-7.45); ABG TCO2 23.3 MMOL/L (23-27); Glucose Heart Surgery 141 MG/DL (74-106); Hematocrit Heart Surgery 31.7 PERCENT (42-52); Hemoglobin Heart Surgery 10.2 G/DL (14.0-18.0); Potassium Heart/CVR 4.3 MMOL/L (3.5-5.1)
[2017-04-17] MEDS ORDERED: FUROSEMIDE 40 MG/4 ML VIAL IV PRN (19:56)
[2017-04-17 21:27] LABS: CKMB % 4.8 %
[2017-04-17 21:31] LABS: Troponin I Only 2.29 NG/ML (0.00-0.045)
[2017-04-18] MEDS: KETOROLAC 30 MG/1 ML VIAL IV SCH ×4 (00:20→18:15)
[2017-04-18] MEDS: LACTATED RINGERS 250 ML IV PRN ×2 (00:48→00:59)
[2017-04-18] MEDS: ALBUMIN 5% 12.5 GM in PREMIX 1 EACH IV PRN ×2 (01:22→02:13)
[2017-04-18 03:21] LABS: ABG Base Excess -0.6 MMOL/L (-2.5-2.5); ABG HCO3 23.9 MMOL/L (20-26); ABG Oxygen Saturation 97.9 % (95-100); ABG PCO2 42.7 MM HG (35-48); ABG PH 7.369 (7.35-7.45); Glucose Heart Surgery 127 MG/DL (74-106); Hemoglobin Heart Surgery 8.4 G/DL (14.0-18.0)
[2017-04-18 03:23] LABS: Hematocrit 25.3 VOL% (42.0-52.0); Hemoglobin 8.5 GM/DL (14.0-18.0); Immature Granulocytes % 0.7 %; Lymphocytes % 7.1 % (21.2-54.2); Mean Corpuscular HGB Conc 33.6 GM/DL (32-36); Mean Corpuscular Hemoglobin 30 PG (27-34); Mean Corpuscular Volume 89.1 FL (87-102); Mean Platelet Volume 11.6 FL (9.6-12.0); Monocytes # 0.5 10*3/uL (0.11-0.8); Monocytes % 3.6 % (1.7-12.7); Neutrophils # 12.9 10*3/uL (1.4-7.4); Neutrophils % 88.6 % (38.7-73.9); Platelet Count 131 T/CUMM (130-400); Red Blood Count 2.84 MC/CUMM (3.8-5.5); Red Cell Distribution Width 13.9 % (9.3-17.3); White Blood Count 14.6 T/CUMM (4-12)
[2017-04-18] MEDS: POTASSIUM CHLORIDE RIDER 20 MEQ in PREMIX 1 EACH IV PRN ×2 (03:30→07:05)
[2017-04-18 03:49] LABS: CKMB % 4.2 %
[2017-04-18 03:50] LABS: Troponin I Only 2.03 NG/ML (0.00-0.045)
[2017-04-18 04:03] LABS: Albumin 3.7 G/DL (3.4-5.0); Bilirubin,Direct 0.3 MG/DL (0.0-0.20); Bilirubin,Total 0.8 MG/DL (0.2-1.0); Calcium 7.8 MG/DL (8.5-10.1); Magnesium 1.8 MG/DL (1.8-2.4); Osmolality,Calculated 292.6 MOS/KG (273-304); Potassium 4.1 MMOL/L (3.5-5.1); Total Protein 5.3 G/DL (6.4-8.3)
[2017-04-18 04:14] LABS: ABG Base Excess -1.2 MMOL/L (-2.5-2.5); ABG HCO3 23.5 MMOL/L (20-26); ABG Oxygen Saturation 93.9 % (95-100); ABG PCO2 39.6 MM HG (35-48); ABG PH 7.392 (7.35-7.45); ABG PO2 74.6 MM HG (80-95); ABG TCO2 24.8 MMOL/L (23-27); Glucose Heart Surgery 117 MG/DL (74-106); Hemoglobin Heart Surgery 8.8 G/DL (14.0-18.0); Potassium Heart/CVR 4.5 MMOL/L (3.5-5.1)
[2017-04-18 05:44] LABS: ABG Base Excess -0.8 MMOL/L (-2.5-2.5); ABG HCO3 24.2 MMOL/L (20-26); ABG Oxygen Saturation 97.1 % (95-100); ABG PCO2 41.3 MM HG (35-48); ABG PH 7.386 (7.35-7.45); ABG PO2 106.2 MM HG (80-95); ABG TCO2 25.5 MMOL/L (23-27); Glucose Heart Surgery 126 MG/DL (74-106); Hemoglobin Heart Surgery 10.2 G/DL (14.0-18.0); Potassium Heart/CVR 4.2 MMOL/L (3.5-5.1)
[2017-04-18 05:48] LABS: Hematocrit 28.2 VOL% (42.0-52.0); Hemoglobin 9.8 GM/DL (14.0-18.0)
[2017-04-18 06:32] LABS: ABG HCO3 24.4 MMOL/L (20-26); ABG Oxygen Saturation 97.5 % (95-100); ABG PH 7.377 (7.35-7.45); ABG TCO2 23.1 MMOL/L (23-27); Glucose Heart Surgery 140 MG/DL (74-106); Hematocrit Heart Surgery 29.9 PERCENT (42-52); Hemoglobin Heart Surgery 9.7 G/DL (14.0-18.0)
[2017-04-18 07:00] LABS: ABG Base Excess -0.1 MMOL/L (-2.5-2.5); ABG HCO3 24.3 MMOL/L (20-26); ABG Oxygen Saturation 94.9 % (95-100); ABG PH 7.389 (7.35-7.45); ABG PO2 75.2 MM HG (80-95); ABG TCO2 22.7 MMOL/L (23-27); Glucose Heart Surgery 139 MG/DL (74-106); Hematocrit Heart Surgery 29.3 PERCENT (42-52); Hemoglobin Heart Surgery 9.5 G/DL (14.0-18.0)
--- NOTE | 2017-04-18 07:23 | EKG Report ---
Stationary ECG Study [facility] Test Date: 04/18/2017 7:24:12 AM Pat Name: JOSE JASSO Department: Room: 104 Gender: M Display Director: MANJINDER : 1945 Requested by: Montrell Randolph Order Number: [id number] Tejal MD: JAYLYN SHANKS Intervals Premier Rate: 83 P: 34 TX: 136 QRS: 59 QRSD: 85 T: 7 QT: 379 QTc: 418 Interpretive Statements SINUS RHYTHM ST ELEVATION, PROBABLY EARLY REPOLARIZATION Electronically Signed On 04-19-17 07:24:49 CDT by JAYLYN SHANKS [email or web address]
--- NOTE | 2017-04-18 08:15 | Cardiothoracic Progress Note ---
Cardiothoracic Subjective Interval history: Patient is awake alert and extubated. Vital signs have been stable through the night and he is breathing comfortably this morning. Blood gases are satisfactory after extubation. Cardiac output is 6 L/min and cardiac enzymes are within normal limits for postoperative day #1. Urine output has been satisfactory and creatinine is within normal limits. Chest tube drainage is minimal but he does have a very small air leak from going to leave his chest tubes in place. I think he can be transferred to telemetry later this morning. Exam (Progress Note) - Constitutional Vitals: Period Temp Pulse Resp BP Sys/Ryan Pulse Ox Last 24 Hr 96.6 F-98.7 F 67-83 10-18 74-155/37-74 94-100 Result/EKG - Labs CBC & BMP: 04/18/17 05:35 04/18/17 03:05 Labs: Laboratory Results - last 24 hr 04/16/17 04/16/17 04/17/17 15:45 15:45 09:49 WBC RBC Hgb Hct MCV MCH MCHC RDW Plt Count MPV Neut % (Auto) Lymph % (Auto) [place] % (Auto) Eos % (Auto) Baso % (Auto) Neut # (Auto) Lymph # (Auto) [place] # (Auto) Eos # (Auto) Baso # (Auto) Immature Gran % Nucleated RBC % Immature Gran # Nucleated RBCs # Immature Plt Fraction INR PT Patient/Control Mix Circ Anticoag PTT Patient Temperature 34 ABG pH ABG pH at Pt Temp 7.427 ABG pCO2 ABG pCO2 at Pt Temp 40.0 ABG pO2 ABG pO2 at Pt Temp 36.8 ABG HCO3 ABG Total CO2 ABG O2 Saturation ABG Base Excess ABG Sodium 131 L VBG pH 7.383 VBG pCO2 45.6 VBG pO2 45.4 H VBG HCO3 26.6 VBG Total CO2 28.0 VBG O2 Saturation 81.4 VBG Base Excess 1.2 Hemoglobin 8.9 L Hematocrit 26.0 L Potassium 5.8 H Glucose 278 H Ionized Calcium FiO2 80.00 Sodium Chloride Carbon Dioxide Anion Gap BUN Creatinine GFR Calculation BUN/Creatinine Ratio Calculated Osmolality Calcium Venous Ioniz Calcium 0.89 Magnesium Total Bilirubin Direct Bilirubin AST ALT Alkaline Phosphatase Total Creatine Kinase CK-MB (CK-2) CK and CKMB Interp Troponin I Total Protein Albumin Globulin Albumin/Globulin Ratio Blood Type A POSITIVE Cancelled Antibody Screen Negative Crossmatch See Detail 04/17/17 04/17/17 04/17/17 10:36 11:23 11:23 WBC RBC Hgb Hct MCV MCH MCHC RDW Plt Count 102 L D MPV Neut % (Auto) Lymph % (Auto) [place] % (Auto) Eos % (Auto) Baso % (Auto) Neut # (Auto) Lymph # (Auto) [place] # (Auto) Eos # (Auto) Baso # (Auto) Immature Gran % Nucleated RBC % Immature Gran # Nucleated RBCs # Immature Plt Fraction INR PT Patient/Control Mix Circ Anticoag PTT Patient Temperature 35 37 ABG pH 7.393 ABG pH at Pt Temp 7.456 7.393 ABG pCO2 41.0 ABG pCO2 at Pt Temp 36.1 41.0 ABG pO2 113.7 H ABG pO2 at Pt Temp 33.3 113.7 ABG HCO3 24.4 ABG Total CO2 25.7 ABG O2 Saturation 97.3 ABG Base Excess -0.5 ABG Sodium 132 L 137 VBG pH 7.426 VBG pCO2 39.4 L VBG pO2 38.4 VBG HCO3 25.3 VBG Total CO2 26.5 VBG O2 Saturation 76.9 VBG Base Excess 0.9 Hemoglobin 9.9 L 11.0 L Hematocrit 29.0 L 32.0 L Potassium 6.1 H* 4.8 Glucose 217 H 173 H Ionized Calcium 1.28 FiO2 80.00 Sodium Chloride Carbon Dioxide Anion Gap BUN Creatinine GFR Calculation BUN/Creatinine Ratio Calculated Osmolality Calcium Venous Ioniz Calcium 0.95 Magnesium Total Bilirubin Direct Bilirubin AST ALT Alkaline Phosphatase Total Creatine Kinase CK-MB (CK-2) CK and CKMB Interp Troponin I Total Protein Albumin Globulin Albumin/Globulin Ratio Blood Type Antibody Screen Crossmatch 04/17/17 04/17/17 04/17/17 12:20 12:20 12:20 WBC 14.5 H D RBC 3.48 L D Hgb 10.6 L D Hct 31.2 L MCV 89.7 MCH 31 MCHC 34.0 RDW 13.5 Plt Count 123 L D MPV 11.0 Neut % (Auto) 79.3 H Lymph % (Auto) 11.7 L [place] % (Auto) 7.0 Eos % (Auto) 1.2 Baso % (Auto) 0.3 Neut # (Auto) 11.5 H Lymph # (Auto) 1.7 [place] # (Auto) 1.0 H Eos # (Auto) 0.2 Baso # (Auto) 0.0 Immature Gran % 0.5 Nucleated RBC % 0.0 Immature Gran # 0.07 Nucleated RBCs # 0.00 Immature Plt Fraction 0.0 INR 1.4 PT Patient/Control Mix 14.7 D Circ Anticoag PTT 31.0 D Patient Temperature ABG pH ABG pH at Pt Temp ABG pCO2 ABG pCO2 at Pt Temp ABG pO2 ABG pO2 at Pt Temp ABG HCO3 ABG Total CO2 ABG O2 Saturation ABG Base Excess ABG Sodium VBG pH VBG pCO2 VBG pO2 VBG HCO3 VBG Total CO2 VBG O2 Saturation VBG Base Excess Hemoglobin Hematocrit Potassium 3.8 Glucose 145 H Ionized Calcium FiO2 Sodium 143 Chloride 111 H Carbon Dioxide 26 Anion Gap 9.8 BUN 15 Creatinine 1.00 GFR Calculation 90 BUN/Creatinine Ratio 15.00 Calculated Osmolality 288.0 Calcium 8.2 L Venous Ioniz Calcium Magnesium 2.1 Total Bilirubin 1.50 H Direct Bilirubin AST 30 ALT 21 Alkaline Phosphatase 47 Total Creatine Kinase CK-MB (CK-2) CK and CKMB Interp Troponin I Total Protein 5.0 L Albumin 2.9 L Globulin 2.1 L Albumin/Globulin Ratio 1.3 Blood Type Antibody Screen Crossmatch 04/17/17 04/17/17 04/17/17 12:20 12:20 14:23 WBC RBC Hgb Hct MCV MCH MCHC RDW Plt Count MPV Neut % (Auto) Lymph % (Auto) [place] % (Auto) Eos % (Auto) Baso % (Auto) Neut # (Auto) Lymph # (Auto) [place] # (Auto) Eos # (Auto) Baso # (Auto) Immature Gran % Nucleated RBC % Immature Gran # Nucleated RBCs # Immature Plt Fraction INR PT Patient/Control Mix Circ Anticoag PTT Patient Temperature ABG pH 7.363 7.359 ABG pH at Pt Temp ABG pCO2 43.9 43.3 ABG pCO2 at Pt Temp ABG pO2 77.6 L 83.3 ABG pO2 at Pt Temp ABG HCO3 23.9 23.4 ABG Total CO2 22.7 L 21.6 L ABG O2 Saturation 94.3 L 95.6 ABG Base Excess -0.5 -1.1 ABG Sodium VBG pH VBG pCO2 VBG pO2 VBG HCO3 VBG Total CO2 VBG O2 Saturation VBG Base Excess Hemoglobin 10.4 L 12.6 L Hematocrit 32.1 L 38.8 L Potassium 3.7 4.0 Glucose 147 H 165 H Ionized Calcium FiO2 Sodium Chloride Carbon Dioxide Anion Gap BUN Creatinine GFR Calculation BUN/Creatinine Ratio Calculated Osmolality Calcium Venous Ioniz Calcium Magnesium Total Bilirubin Direct Bilirubin AST ALT Alkaline Phosphatase Total Creatine Kinase 226 CK-MB (CK-2) 15.2 H CK and CKMB Interp 6.7 Troponin I 2.100 H D Total Protein Albumin Globulin Albumin/Globulin Ratio Blood Type Antibody Screen Crossmatch 04/17/17 04/17/17 04/17/17 15:49 16:19 17:25 WBC RBC Hgb Hct MCV MCH MCHC RDW Plt Count MPV Neut % (Auto) Lymph % (Auto) [place] % (Auto) Eos % (Auto) Baso % (Auto) Neut # (Auto) Lymph # (Auto) [place] # (Auto) Eos # (Auto) Baso # (Auto) Immature Gran % Nucleated RBC % Immature Gran # Nucleated RBCs # Immature Plt Fraction INR PT Patient/Control Mix Circ Anticoag PTT Patient Temperature 37 ABG pH 7.376 7.368 ABG pH at Pt Temp 7.320 ABG pCO2 42.6 43.1 ABG pCO2 at Pt Temp 51.3 ABG pO2 159.0 H 107.0 H ABG pO2 at Pt Temp 37.3 ABG HCO3 24.2 23.9 ABG Total CO2 22.7 L 22.5 L ABG O2 Saturation 99.2 97.8 ABG Base Excess -0.2 -0.6 ABG Sodium 143 VBG pH 7.320 VBG pCO2 51.3 H VBG pO2 37.3 VBG HCO3 23.6 L VBG Total CO2 24.4 VBG O2 Saturation 62.1 VBG Base Excess -0.3 L Hemoglobin 9.9 L D 10.4 L 10.5 L Hematocrit 30.5 L 32.3 L 32.6 L Potassium 4.0 3.9 4.7 Glucose 130 H 146 H 137 H Ionized Calcium FiO2 21.00 Sodium Chloride Carbon Dioxide Anion Gap BUN Creatinine GFR Calculation BUN/Creatinine Ratio Calculated Osmolality Calcium Venous Ioniz Calcium 1.15 L Magnesium Total Bilirubin Direct Bilirubin AST ALT Alkaline Phosphatase Total Creatine Kinase CK-MB (CK-2) CK and CKMB Interp Troponin I Total Protein Albumin Globulin Albumin/Globulin Ratio Blood Type Antibody Screen Crossmatch 04/17/17 04/17/17 04/18/17 18:34 20:29 03:05 WBC 14.6 H RBC 2.84 L Hgb 8.5 L D Hct 25.3 L MCV 89.1 MCH 30 MCHC 33.6 RDW 13.9 Plt Count 131 MPV 11.6 Neut % (Auto) 88.6 H Lymph % (Auto) 7.1 L [place] % (Auto) 3.6 Eos % (Auto) 0.0 Baso % (Auto) 0.0 Neut # (Auto) 12.9 H Lymph # (Auto) 1.0 L [place] # (Auto) 0.5 Eos # (Auto) 0.0 Baso # (Auto) 0.0 Immature Gran % 0.7 Nucleated RBC % 0.0 Immature Gran # 0.10 Nucleated RBCs # 0.00 Immature Plt Fraction 0.0 INR PT Patient/Control Mix Circ Anticoag PTT Patient Temperature ABG pH 7.377 ABG pH at Pt Temp ABG pCO2 43.7 ABG pCO2 at Pt Temp ABG pO2 102.0 H ABG pO2 at Pt Temp ABG HCO3 24.7 ABG Total CO2 23.3 ABG O2 Saturation 97.6 ABG Base Excess 0.3 ABG Sodium VBG pH VBG pCO2 VBG pO2 VBG HCO3 VBG Total CO2 VBG O2 Saturation VBG Base Excess Hemoglobin 10.2 L Hematocrit 31.7 L Potassium 4.3 Glucose 141 H Ionized Calcium FiO2 Sodium Chloride Carbon Dioxide Anion Gap BUN Creatinine GFR Calculation BUN/Creatinine Ratio Calculated Osmolality Calcium Venous Ioniz Calcium Magnesium Total Bilirubin Direct Bilirubin AST ALT Alkaline Phosphatase Total Creatine Kinase 268 CK-MB (CK-2) 12.8 H CK and CKMB Interp 4.8 Troponin I 2.290 H Total Protein Albumin Globulin Albumin/Globulin Ratio Blood Type Antibody Screen Crossmatch 04/18/17 04/18/17 04/18/17 03:05 03:05 03:05 WBC RBC Hgb Hct MCV MCH MCHC RDW Plt Count MPV Neut % (Auto) Lymph % (Auto) [place] % (Auto) Eos % (Auto) Baso % (Auto) Neut # (Auto) Lymph # (Auto) [place] # (Auto) Eos # (Auto) Baso # (Auto) Immature Gran % Nucleated RBC % Immature Gran # Nucleated RBCs # Immature Plt Fraction INR PT Patient/Control Mix Circ Anticoag PTT Patient Temperature ABG pH 7.369 ABG pH at Pt Temp ABG pCO2 42.7 ABG pCO2 at Pt Temp ABG pO2 109.0 H ABG pO2 at Pt Temp ABG HCO3 23.9 ABG Total CO2 23.0 ABG O2 Saturation 97.9 ABG Base Excess -0.6 ABG Sodium VBG pH VBG pCO2 VBG pO2 VBG HCO3 VBG Total CO2 VBG O2 Saturation VBG Base Excess Hemoglobin 8.4 L Hematocrit 26.0 L Potassium 4.1 4.0 Glucose 123 H 127 H Ionized Calcium FiO2 Sodium 146 H Chloride 112 H Carbon Dioxide 26 Anion Gap 12.1 BUN 19 H Creatinine 0.90 GFR Calculation 102 BUN/Creatinine Ratio 21.00 H Calculated Osmolality 292.6 Calcium 7.8 L Venous Ioniz Calcium Magnesium 1.8 Total Bilirubin 0.80 Direct Bilirubin 0.30 H AST 24 ALT 18 Alkaline Phosphatase 30 L Total Creatine Kinase 247 CK-MB (CK-2) 10.3 H CK and CKMB Interp 4.2 Troponin I 2.030 H Total Protein 5.3 L Albumin 3.7 Globulin 1.6 L Albumin/Globulin Ratio 2.3 H Blood Type Antibody Screen Crossmatch 04/18/17 04/18/17 04/18/17 04:06 05:35 05:35 WBC RBC Hgb 9.8 L Hct 28.2 L MCV MCH MCHC RDW Plt Count MPV Neut % (Auto) Lymph % (Auto) [place] % (Auto) Eos % (Auto) Baso % (Auto) Neut # (Auto) Lymph # (Auto) [place] # (Auto) Eos # (Auto) Baso # (Auto) Immature Gran % Nucleated RBC % Immature Gran # Nucleated RBCs # Immature Plt Fraction INR PT Patient/Control Mix Circ Anticoag PTT Patient Temperature ABG pH 7.392 7.386 ABG pH at Pt Temp ABG pCO2 39.6 41.3 ABG pCO2 at Pt Temp ABG pO2 74.6 L 106.2 H ABG pO2 at Pt Temp ABG HCO3 23.5 24.2 ABG Total CO2 24.8 25.5 ABG O2 Saturation 93.9 L 97.1 ABG Base Excess -1.2 -0.8 ABG Sodium VBG pH VBG pCO2 VBG pO2 VBG HCO3 VBG Total CO2 VBG O2 Saturation VBG Base Excess Hemoglobin 8.8 L 10.2 L Hematocrit 26.0 L 30.0 L Potassium 4.5 4.2 Glucose 117 H 126 H Ionized Calcium FiO2 Sodium Chloride Carbon Dioxide Anion Gap BUN Creatinine GFR Calculation BUN/Creatinine Ratio Calculated Osmolality Calcium Venous Ioniz Calcium Magnesium Total Bilirubin Direct Bilirubin AST ALT Alkaline Phosphatase Total Creatine Kinase CK-MB (CK-2) CK and CKMB Interp Troponin I Total Protein Albumin Globulin Albumin/Globulin Ratio Blood Type Antibody Screen Crossmatch 04/18/17 04/18/17 06:34 06:58 WBC RBC Hgb Hct MCV MCH MCHC RDW Plt Count MPV Neut % (Auto) Lymph % (Auto) [place] % (Auto) Eos % (Auto) Baso % (Auto) Neut # (Auto) Lymph # (Auto) [place] # (Auto) Eos # (Auto) Baso # (Auto) Immature Gran % Nucleated RBC % Immature Gran # Nucleated RBCs # Immature Plt Fraction INR PT Patient/Control Mix Circ Anticoag PTT Patient Temperature ABG pH 7.377 7.389 ABG pH at Pt Temp ABG pCO2 43.0 41.0 ABG pCO2 at Pt Temp ABG pO2 102.0 H 75.2 L ABG pO2 at Pt Temp ABG HCO3 24.4 24.3 ABG Total CO2 23.1 22.7 L ABG O2 Saturation 97.5 94.9 L ABG Base Excess 0.0 -0.1 ABG Sodium VBG pH VBG pCO2 VBG pO2 VBG HCO3 VBG Total CO2 VBG O2 Saturation VBG Base Excess Hemoglobin 9.7 L 9.5 L Hematocrit 29.9 L 29.3 L Potassium 4.0 4.0 Glucose 140 H 139 H Ionized Calcium FiO2 Sodium Chloride Carbon Dioxide Anion Gap BUN Creatinine GFR Calculation BUN/Creatinine Ratio Calculated Osmolality Calcium Venous Ioniz Calcium Magnesium Total Bilirubin Direct Bilirubin AST ALT Alkaline Phosphatase Total Creatine Kinase CK-MB (CK-2) CK and CKMB Interp Troponin I Total Protein Albumin Globulin Albumin/Globulin Ratio Blood Type Antibody Screen Crossmatch Quality Measures - VTE Contraindication to Pharmacological VTE Prophylaxis: High Risk of Bleeding Specialty Discharge - Follow Up or Referrals
[2017-04-18] MEDS: CHLORHEXIDINE 0.12% ORAL RINSE 60 ML BOTTLE SWISH/SPIT SCH ×3 (08:17→21:30)
--- NOTE | 2017-04-18 08:21 | XRay Report ---
Portable chest. Indication: Post chest tube removal. Comparison: Yesterday's exam. Endotracheal tube, nasogastric tube, right IJ line, and [place]-Romel catheter are unchanged in position. The heart is enlarged. Post median sternotomy. No pneumothorax is seen. There is bilateral basilar atelectasis and a small left pleural effusion. Chest tubes are again noted. Impression: Basilar hypoaeration. Small left pleural effusion. Mild improvement compared to yesterday. PROCEDURE INTERPRETED AT [facility] DEPARTMENT OF RADIOLOGY Final Report Signed by: Dr. Chata Cerda
--- NOTE | 2017-04-18 08:40 | Cardiology Progress Note ---
Luis Carlos Parra Vanessa RN, am scribing for, and in the presence of, Aide Shanks DO 08 :40. Assessment and Plan - Time spent with patient Time spent with patient: Greater than 30 minutes (1) S/P CABG x 3 Status: Acute Assessment and plan: Postoperative day #1 status post bypass grafting 3 with STOVALL to OM, SVG to LAD , and SVG to RCA. Seems to be progressing nicely he remains in sinus rhythm Current Visit: Yes (2) CAD (coronary artery disease) Status: Chronic Assessment and plan: Severe three-vessel coronary disease now status post coronary artery bypass grafting 3.. Current Visit: Yes Qualifiers: Coronary Disease-Associated Artery/Lesion type: [place] artery [place] vs. transplanted heart: [place] heart Associated angina: without angina Qualified Code(s): I25.10 - Atherosclerotic heart disease of [place] coronary artery without angina pectoris (3) Diabetes Status: Chronic Assessment and plan: Chronic and uncontrolled. He has a history of glucose intolerance. Diabetes education has been consulted, and they have seen patient this admission. Review of glucose levels over the weekend show relatively stable glycemia. Current Visit: Yes Qualifiers: Diabetes mellitus type: type 2 (4) Dyslipidemia Status: Chronic Assessment and plan: Continue statin. Recent lipid panel in clinic with total cholesterol 239, triglycerides 148, HDL 48, LDL 162. Atorvastatin was increased to 80 mg PO daily. Current Visit: Yes (5) Hypertension Status: Chronic Assessment and plan: Relatively well controlled on current antihypertensive regimen. Continue to monitor and adjust as medical condition evolves. Current Visit: Yes (6) Obesity (BMI 30.0-34.9) Status: Chronic Assessment and plan: Dietitian consult has been placed. Current Visit: Yes (7) Sleep disorder Status: Chronic Assessment and plan: History of obstructive sleep apnea. Sleep medicine has been consulted for polysomnography. Current Visit: Yes (8) GERD (gastroesophageal reflux disease) Status: Chronic Assessment and plan: Continue PPI. Current Visit: Yes Cardiology - PN: Subj Interval history: PRIMARY FILM LABORATORY TECHNICIAN: DR. SHANKS SUMMARY: Mr. Mccloud, 71 year old WM, with risk factors significant for: Hypertension, diabetes, dyslipidemia, obesity, and is a former smoker. Patient presented to [facility] on April 14 for left heart catheterization due to progressive unstable angina over the course of approximately 1 year and echocardiogram with regional wall motion abnormality. Cardiac cath revealed severe three-vessel coronary artery disease, preserved EF 65%. He was admitted to [facility] telemetry unit for close observation, and cardiovascular surgery consulted for bypass grafting. Over the weekend, he was felt by Dr. Zapata. He had no anginal complaint, and vitals were stable. He has had some itching of the hands and Atarax was prescribed. CABG 3 with STOVALL to OM, SVG to LAD, SVG to RCA. March: Mr. Mccloud seen and examined in CVR this morning. Completing T-tube trial to hopefully be extubated this morning. Requiring IV phenylephrine with current SBP 100-110 mmHg. Required return to OR yesterday afternoon for postoperative hemorrhage (bleeding at distal circumflex anastomosis). Sinus rhythm per map clerk without disturbance. Postoperative H&H stable this morning. Electrolytes within acceptable range. CTNI peak yesterday afternoon at 2.290. I saw the patient this morning before extubation. He looks quite good he is on very low-dose phenylephrine. He was responding to close ended questions following commands and answering close ended questions appropriately. He had some bleeding issues yesterday but his platelets are good today. He looks excellent. Anticipate extubation and transfer soon. Exam (Progress Note) - Constitutional Vitals: Period Temp Pulse Resp BP Sys/Ryan Pulse Ox Last 24 Hr 96.6 F-98.7 F 67-83 10-18 74-155/37-74 94-100 General appearance: over weight - Head Head exam: Present: other (Some T piece trial) - Eye Eye exam: Present: EOMI Pupils: Present: SHELL - Neck Neck exam: Present: normal inspection - Respiratory Respiratory exam: Present: rhonchi (Primarily upper airway noise) - Cardiovascular Cardiovascular exam: Present: regular rate and rhythm (He has a triphasic rub) - GI/Abdominal GI/Abdominal exam: Present: normal bowel sounds - Extremities Exam Extremities exam: Present: other (Graft harvest site looks good) - Back Exam Back exam: Present: normal inspection - Neurological Exam Neurological exam: Present: alert - Skin Skin exam: Present: normal color, warm Result/EKG - Labs CBC & BMP: 04/18/17 05:35 04/18/17 03:05 Lab Results: I have reviewed the past 24 hour labs Labs: Laboratory Results - last 24 hr 04/16/17 04/16/17 04/17/17 15:45 15:45 07:05 WBC RBC Hgb Hct MCV MCH MCHC RDW Plt Count MPV Neut % (Auto) Lymph % (Auto) [place] % (Auto) Eos % (Auto) Baso % (Auto) Neut # (Auto) Lymph # (Auto) [place] # (Auto) Eos # (Auto) Baso # (Auto) Immature Gran % Nucleated RBC % Immature Gran # Nucleated RBCs # Immature Plt Fraction INR PT Patient/Control Mix Circ Anticoag PTT Patient Temperature ABG pH ABG pH at Pt Temp ABG pCO2 ABG pCO2 at Pt Temp ABG pO2 ABG pO2 at Pt Temp ABG HCO3 ABG Total CO2 ABG O2 Saturation ABG Base Excess ABG Sodium VBG pH VBG pCO2 VBG pO2 VBG HCO3 VBG Total CO2 VBG O2 Saturation VBG Base Excess Hemoglobin Hematocrit Potassium Glucose Ionized Calcium FiO2 Sodium Chloride Carbon Dioxide Anion Gap BUN Creatinine GFR Calculation BUN/Creatinine Ratio Calculated Osmolality Calcium Venous Ioniz Calcium Magnesium Total Bilirubin Direct Bilirubin AST ALT Alkaline Phosphatase Total Creatine Kinase CK-MB (CK-2) CK and CKMB Interp Troponin I Total Protein Albumin Globulin Albumin/Globulin Ratio Urine Color Straw Urine Appearance Clear Urine pH 6.0 Ur Specific [place] 1.009 Urine Protein Negative Urine Glucose (UA) Negative Urine Ketones Negative Urine Blood Large Urine Nitrate Negative Urine Bilirubin Negative Urine Urobilinogen 4.0 H Urine Leukocytes Negative Urine RBC 158 Urine WBC 1 Ur Squamous Epith Cells Occasional Urine Mucus Occasional Ur Culture Indicated? Not indicated Blood Type A POSITIVE Cancelled Antibody Screen Negative Crossmatch See Detail 04/17/17 04/17/17 04/17/17 07:58 07:59 09:49 WBC RBC Hgb Hct MCV MCH MCHC RDW Plt Count 18 L* D MPV Neut % (Auto) Lymph % (Auto) [place] % (Auto) Eos % (Auto) Baso % (Auto) Neut # (Auto) Lymph # (Auto) [place] # (Auto) Eos # (Auto) Baso # (Auto) Immature Gran % Nucleated RBC % Immature Gran # Nucleated RBCs # Immature Plt Fraction INR PT Patient/Control Mix Circ Anticoag PTT Patient Temperature 37 34 ABG pH 7.326 L ABG pH at Pt Temp 7.326 7.427 ABG pCO2 47.3 ABG pCO2 at Pt Temp 47.3 40.0 ABG pO2 331.0 H ABG pO2 at Pt Temp 331.0 36.8 ABG HCO3 23.0 ABG Total CO2 22.0 L ABG O2 Saturation 99.6 ABG Base Excess -1.7 ABG Sodium 141 131 L VBG pH 7.383 VBG pCO2 45.6 VBG pO2 45.4 H VBG HCO3 26.6 VBG Total CO2 28.0 VBG O2 Saturation 81.4 VBG Base Excess 1.2 Hemoglobin 12.4 L 8.9 L Hematocrit 38.0 L 26.0 L Potassium 3.7 5.8 H Glucose 110 H 278 H Ionized Calcium 1.17 L FiO2 80.00 Sodium Chloride Carbon Dioxide Anion Gap BUN Creatinine GFR Calculation BUN/Creatinine Ratio Calculated Osmolality Calcium Venous Ioniz Calcium 0.89 Magnesium Total Bilirubin Direct Bilirubin AST ALT Alkaline Phosphatase Total Creatine Kinase CK-MB (CK-2) CK and CKMB Interp Troponin I Total Protein Albumin Globulin Albumin/Globulin Ratio Urine Color Urine Appearance Urine pH Ur Specific [place] Urine Protein Urine Glucose (UA) Urine Ketones Urine Blood Urine Nitrate Urine Bilirubin Urine Urobilinogen Urine Leukocytes Urine RBC Urine WBC Ur Squamous Epith Cells Urine Mucus Ur Culture Indicated? Blood Type Antibody Screen Crossmatch 04/17/17 04/17/17 04/17/17 10:36 11:23 11:23 WBC RBC Hgb Hct MCV MCH MCHC RDW Plt Count 102 L D MPV Neut % (Auto) Lymph % (Auto) [place] % (Auto) Eos % (Auto) Baso % (Auto) Neut # (Auto) Lymph # (Auto) [place] # (Auto) Eos # (Auto) Baso # (Auto) Immature Gran % Nucleated RBC % Immature Gran # Nucleated RBCs # Immature Plt Fraction INR PT Patient/Control Mix Circ Anticoag PTT Patient Temperature 35 37 ABG pH 7.393 ABG pH at Pt Temp 7.456 7.393 ABG pCO2 41.0 ABG pCO2 at Pt Temp 36.1 41.0 ABG pO2 113.7 H ABG pO2 at Pt Temp 33.3 113.7 ABG HCO3 24.4 ABG Total CO2 25.7 ABG O2 Saturation 97.3 ABG Base Excess -0.5 ABG Sodium 132 L 137 VBG pH 7.426 VBG pCO2 39.4 L VBG pO2 38.4 VBG HCO3 25.3 VBG Total CO2 26.5 VBG O2 Saturation 76.9 VBG Base Excess 0.9 Hemoglobin 9.9 L 11.0 L Hematocrit 29.0 L 32.0 L Potassium 6.1 H* 4.8 Glucose 217 H 173 H Ionized Calcium 1.28 FiO2 80.00 Sodium Chloride Carbon Dioxide Anion Gap BUN Creatinine GFR Calculation BUN/Creatinine Ratio Calculated Osmolality Calcium Venous Ioniz Calcium 0.95 Magnesium Total Bilirubin Direct Bilirubin AST ALT Alkaline Phosphatase Total Creatine Kinase CK-MB (CK-2) CK and CKMB Interp Troponin I Total Protein Albumin Globulin Albumin/Globulin Ratio Urine Color Urine Appearance Urine pH Ur Specific [place] Urine Protein Urine Glucose (UA) Urine Ketones Urine Blood Urine Nitrate Urine Bilirubin Urine Urobilinogen Urine Leukocytes Urine RBC Urine WBC Ur Squamous Epith Cells Urine Mucus Ur Culture Indicated? Blood Type Antibody Screen Crossmatch 04/17/17 04/17/17 04/17/17 12:20 12:20 12:20 WBC 14.5 H D RBC 3.48 L D Hgb 10.6 L D Hct 31.2 L MCV 89.7 MCH 31 MCHC 34.0 RDW 13.5 Plt Count 123 L D MPV 11.0 Neut % (Auto) 79.3 H Lymph % (Auto) 11.7 L [place] % (Auto) 7.0 Eos % (Auto) 1.2 Baso % (Auto) 0.3 Neut # (Auto) 11.5 H Lymph # (Auto) 1.7 [place] # (Auto) 1.0 H Eos # (Auto) 0.2 Baso # (Auto) 0.0 Immature Gran % 0.5 Nucleated RBC % 0.0 Immature Gran # 0.07 Nucleated RBCs # 0.00 Immature Plt Fraction 0.0 INR 1.4 PT Patient/Control Mix 14.7 D Circ Anticoag PTT 31.0 D Patient Temperature ABG pH ABG pH at Pt Temp ABG pCO2 ABG pCO2 at Pt Temp ABG pO2 ABG pO2 at Pt Temp ABG HCO3 ABG Total CO2 ABG O2 Saturation ABG Base Excess ABG Sodium VBG pH VBG pCO2 VBG pO2 VBG HCO3 VBG Total CO2 VBG O2 Saturation VBG Base Excess Hemoglobin Hematocrit Potassium 3.8 Glucose 145 H Ionized Calcium FiO2 Sodium 143 Chloride 111 H Carbon Dioxide 26 Anion Gap 9.8 BUN 15 Creatinine 1.00 GFR Calculation 90 BUN/Creatinine Ratio 15.00 Calculated Osmolality 288.0 Calcium 8.2 L Venous Ioniz Calcium Magnesium 2.1 Total Bilirubin 1.50 H Direct Bilirubin AST 30 ALT 21 Alkaline Phosphatase 47 Total Creatine Kinase CK-MB (CK-2) CK and CKMB Interp Troponin I Total Protein 5.0 L Albumin 2.9 L Globulin 2.1 L Albumin/Globulin Ratio 1.3 Urine Color Urine Appearance Urine pH Ur Specific [place] Urine Protein Urine Glucose (UA) Urine Ketones Urine Blood Urine Nitrate Urine Bilirubin Urine Urobilinogen Urine Leukocytes Urine RBC Urine WBC Ur Squamous Epith Cells Urine Mucus Ur Culture Indicated? Blood Type Antibody Screen Crossmatch 04/17/17 04/17/17 04/17/17 12:20 12:20 14:23 WBC RBC Hgb Hct MCV MCH MCHC RDW Plt Count MPV Neut % (Auto) Lymph % (Auto) [place] % (Auto) Eos % (Auto) Baso % (Auto) Neut # (Auto) Lymph # (Auto) [place] # (Auto) Eos # (Auto) Baso # (Auto) Immature Gran % Nucleated RBC % Immature Gran # Nucleated RBCs # Immature Plt Fraction INR PT Patient/Control Mix Circ Anticoag PTT Patient Temperature ABG pH 7.363 7.359 ABG pH at Pt Temp ABG pCO2 43.9 43.3 ABG pCO2 at Pt Temp ABG pO2 77.6 L 83.3 ABG pO2 at Pt Temp ABG HCO3 23.9 23.4 ABG Total CO2 22.7 L 21.6 L ABG O2 Saturation 94.3 L 95.6 ABG Base Excess -0.5 -1.1 ABG Sodium VBG pH VBG pCO2 VBG pO2 VBG HCO3 VBG Total CO2 VBG O2 Saturation VBG Base Excess Hemoglobin 10.4 L 12.6 L Hematocrit 32.1 L 38.8 L Potassium 3.7 4.0 Glucose 147 H 165 H Ionized Calcium FiO2 Sodium Chloride Carbon Dioxide Anion Gap BUN Creatinine GFR Calculation BUN/Creatinine Ratio Calculated Osmolality Calcium Venous Ioniz Calcium Magnesium Total Bilirubin Direct Bilirubin AST ALT Alkaline Phosphatase Total Creatine Kinase 226 CK-MB (CK-2) 15.2 H CK and CKMB Interp 6.7 Troponin I 2.100 H D Total Protein Albumin Globulin Albumin/Globulin Ratio Urine Color Urine Appearance Urine pH Ur Specific [place] Urine Protein Urine Glucose (UA) Urine Ketones Urine Blood Urine Nitrate Urine Bilirubin Urine Urobilinogen Urine Leukocytes Urine RBC Urine WBC Ur Squamous Epith Cells Urine Mucus Ur Culture Indicated? Blood Type Antibody Screen Crossmatch 04/17/17 04/17/17 04/17/17 15:49 16:19 17:25 WBC RBC Hgb Hct MCV MCH MCHC RDW Plt Count MPV Neut % (Auto) Lymph % (Auto) [place] % (Auto) Eos % (Auto) Baso % (Auto) Neut # (Auto) Lymph # (Auto) [place] # (Auto) Eos # (Auto) Baso # (Auto) Immature Gran % Nucleated RBC % Immature Gran # Nucleated RBCs # Immature Plt Fraction INR PT Patient/Control Mix Circ Anticoag PTT Patient Temperature 37 ABG pH 7.376 7.368 ABG pH at Pt Temp 7.320 ABG pCO2 42.6 43.1 ABG pCO2 at Pt Temp 51.3 ABG pO2 159.0 H 107.0 H ABG pO2 at Pt Temp 37.3 ABG HCO3 24.2 23.9 ABG Total CO2 22.7 L 22.5 L ABG O2 Saturation 99.2 97.8 ABG Base Excess -0.2 -0.6 ABG Sodium 143 VBG pH 7.320 VBG pCO2 51.3 H VBG pO2 37.3 VBG HCO3 23.6 L VBG Total CO2 24.4 VBG O2 Saturation 62.1 VBG Base Excess -0.3 L Hemoglobin 9.9 L D 10.4 L 10.5 L Hematocrit 30.5 L 32.3 L 32.6 L Potassium 4.0 3.9 4.7 Glucose 130 H 146 H 137 H Ionized Calcium FiO2 21.00 Sodium Chloride Carbon Dioxide Anion Gap BUN Creatinine GFR Calculation BUN/Creatinine Ratio Calculated Osmolality Calcium Venous Ioniz Calcium 1.15 L Magnesium Total Bilirubin Direct Bilirubin AST ALT Alkaline Phosphatase Total Creatine Kinase CK-MB (CK-2) CK and CKMB Interp Troponin I Total Protein Albumin Globulin Albumin/Globulin Ratio Urine Color Urine Appearance Urine pH Ur Specific [place] Urine Protein Urine Glucose (UA) Urine Ketones Urine Blood Urine Nitrate Urine Bilirubin Urine Urobilinogen Urine Leukocytes Urine RBC Urine WBC Ur Squamous Epith Cells Urine Mucus Ur Culture Indicated? Blood Type Antibody Screen Crossmatch 04/17/17 04/17/17 04/18/17 18:34 20:29 03:05 WBC 14.6 H RBC 2.84 L Hgb 8.5 L D Hct 25.3 L MCV 89.1 MCH 30 MCHC 33.6 RDW 13.9 Plt Count 131 MPV 11.6 Neut % (Auto) 88.6 H Lymph % (Auto) 7.1 L [place] % (Auto) 3.6 Eos % (Auto) 0.0 Baso % (Auto) 0.0 Neut # (Auto) 12.9 H Lymph # (Auto) 1.0 L [place] # (Auto) 0.5 Eos # (Auto) 0.0 Baso # (Auto) 0.0 Immature Gran % 0.7 Nucleated RBC % 0.0 Immature Gran # 0.10 Nucleated RBCs # 0.00 Immature Plt Fraction 0.0 INR PT Patient/Control Mix Circ Anticoag PTT Patient Temperature ABG pH 7.377 ABG pH at Pt Temp ABG pCO2 43.7 ABG pCO2 at Pt Temp ABG pO2 102.0 H ABG pO2 at Pt Temp ABG HCO3 24.7 ABG Total CO2 23.3 ABG O2 Saturation 97.6 ABG Base Excess 0.3 ABG Sodium VBG pH VBG pCO2 VBG pO2 VBG HCO3 VBG Total CO2 VBG O2 Saturation VBG Base Excess Hemoglobin 10.2 L Hematocrit 31.7 L Potassium 4.3 Glucose 141 H Ionized Calcium FiO2 Sodium Chloride Carbon Dioxide Anion Gap BUN Creatinine GFR Calculation BUN/Creatinine Ratio Calculated Osmolality Calcium Venous Ioniz Calcium Magnesium Total Bilirubin Direct Bilirubin AST ALT Alkaline Phosphatase Total Creatine Kinase 268 CK-MB (CK-2) 12.8 H CK and CKMB Interp 4.8 Troponin I 2.290 H Total Protein Albumin Globulin Albumin/Globulin Ratio Urine Color Urine Appearance Urine pH Ur Specific [place] Urine Protein Urine Glucose (UA) Urine Ketones Urine Blood Urine Nitrate Urine Bilirubin Urine Urobilinogen Urine Leukocytes Urine RBC Urine WBC Ur Squamous Epith Cells Urine Mucus Ur Culture Indicated? Blood Type Antibody Screen Crossmatch 04/18/17 04/18/17 04/18/17 03:05 03:05 03:05 WBC RBC Hgb Hct MCV MCH MCHC RDW Plt Count MPV Neut % (Auto) Lymph % (Auto) [place] % (Auto) Eos % (Auto) Baso % (Auto) Neut # (Auto) Lymph # (Auto) [place] # (Auto) Eos # (Auto) Baso # (Auto) Immature Gran % Nucleated RBC % Immature Gran # Nucleated RBCs # Immature Plt Fraction INR PT Patient/Control Mix Circ Anticoag PTT Patient Temperature ABG pH 7.369 ABG pH at Pt Temp ABG pCO2 42.7 ABG pCO2 at Pt Temp ABG pO2 109.0 H ABG pO2 at Pt Temp ABG HCO3 23.9 ABG Total CO2 23.0 ABG O2 Saturation 97.9 ABG Base Excess -0.6 ABG Sodium VBG pH VBG pCO2 VBG pO2 VBG HCO3 VBG Total CO2 VBG O2 Saturation VBG Base Excess Hemoglobin 8.4 L Hematocrit 26.0 L Potassium 4.1 4.0 Glucose 123 H 127 H Ionized Calcium FiO2 Sodium 146 H Chloride 112 H Carbon Dioxide 26 Anion Gap 12.1 BUN 19 H Creatinine 0.90 GFR Calculation 102 BUN/Creatinine Ratio 21.00 H Calculated Osmolality 292.6 Calcium 7.8 L Venous Ioniz Calcium Magnesium 1.8 Total Bilirubin 0.80 Direct Bilirubin 0.30 H AST 24 ALT 18 Alkaline Phosphatase 30 L Total Creatine Kinase 247 CK-MB (CK-2) 10.3 H CK and CKMB Interp 4.2 Troponin I 2.030 H Total Protein 5.3 L Albumin 3.7 Globulin 1.6 L Albumin/Globulin Ratio 2.3 H Urine Color Urine Appearance Urine pH Ur Specific [place] Urine Protein Urine Glucose (UA) Urine Ketones Urine Blood Urine Nitrate Urine Bilirubin Urine Urobilinogen Urine Leukocytes Urine RBC Urine WBC Ur Squamous Epith Cells Urine Mucus Ur Culture Indicated? Blood Type Antibody Screen Crossmatch 04/18/17 04/18/17 04/18/17 04:06 05:35 05:35 WBC RBC Hgb 9.8 L Hct 28.2 L MCV MCH MCHC RDW Plt Count MPV Neut % (Auto) Lymph % (Auto) [place] % (Auto) Eos % (Auto) Baso % (Auto) Neut # (Auto) Lymph # (Auto) [place] # (Auto) Eos # (Auto) Baso # (Auto) Immature Gran % Nucleated RBC % Immature Gran # Nucleated RBCs # Immature Plt Fraction INR PT Patient/Control Mix Circ Anticoag PTT Patient Temperature ABG pH 7.392 7.386 ABG pH at Pt Temp ABG pCO2 39.6 41.3 ABG pCO2 at Pt Temp ABG pO2 74.6 L 106.2 H ABG pO2 at Pt Temp ABG HCO3 23.5 24.2 ABG Total CO2 24.8 25.5 ABG O2 Saturation 93.9 L 97.1 ABG Base Excess -1.2 -0.8 ABG Sodium VBG pH VBG pCO2 VBG pO2 VBG HCO3 VBG Total CO2 VBG O2 Saturation VBG Base Excess Hemoglobin 8.8 L 10.2 L Hematocrit 26.0 L 30.0 L Potassium 4.5 4.2 Glucose 117 H 126 H Ionized Calcium FiO2 Sodium Chloride Carbon Dioxide Anion Gap BUN Creatinine GFR Calculation BUN/Creatinine Ratio Calculated Osmolality Calcium Venous Ioniz Calcium Magnesium Total Bilirubin Direct Bilirubin AST ALT Alkaline Phosphatase Total Creatine Kinase CK-MB (CK-2) CK and CKMB Interp Troponin I Total Protein Albumin Globulin Albumin/Globulin Ratio Urine Color Urine Appearance Urine pH Ur Specific [place] Urine Protein Urine Glucose (UA) Urine Ketones Urine Blood Urine Nitrate Urine Bilirubin Urine Urobilinogen Urine Leukocytes Urine RBC Urine WBC Ur Squamous Epith Cells Urine Mucus Ur Culture Indicated? Blood Type Antibody Screen Crossmatch 04/18/17 04/18/17 06:34 06:58 WBC RBC Hgb Hct MCV MCH MCHC RDW Plt Count MPV Neut % (Auto) Lymph % (Auto) [place] % (Auto) Eos % (Auto) Baso % (Auto) Neut # (Auto) Lymph # (Auto) [place] # (Auto) Eos # (Auto) Baso # (Auto) Immature Gran % Nucleated RBC % Immature Gran # Nucleated RBCs # Immature Plt Fraction INR PT Patient/Control Mix Circ Anticoag PTT Patient Temperature ABG pH 7.377 7.389 ABG pH at Pt Temp ABG pCO2 43.0 41.0 ABG pCO2 at Pt Temp ABG pO2 102.0 H 75.2 L ABG pO2 at Pt Temp ABG HCO3 24.4 24.3 ABG Total CO2 23.1 22.7 L ABG O2 Saturation 97.5 94.9 L ABG Base Excess 0.0 -0.1 ABG Sodium VBG pH VBG pCO2 VBG pO2 VBG HCO3 VBG Total CO2 VBG O2 Saturation VBG Base Excess Hemoglobin 9.7 L 9.5 L Hematocrit 29.9 L 29.3 L Potassium 4.0 4.0 Glucose 140 H 139 H Ionized Calcium FiO2 Sodium Chloride Carbon Dioxide Anion Gap BUN Creatinine GFR Calculation BUN/Creatinine Ratio Calculated Osmolality Calcium Venous Ioniz Calcium Magnesium Total Bilirubin Direct Bilirubin AST ALT Alkaline Phosphatase Total Creatine Kinase CK-MB (CK-2) CK and CKMB Interp Troponin I Total Protein Albumin Globulin Albumin/Globulin Ratio Urine Color Urine Appearance Urine pH Ur Specific [place] Urine Protein Urine Glucose (UA) Urine Ketones Urine Blood Urine Nitrate Urine Bilirubin Urine Urobilinogen Urine Leukocytes Urine RBC Urine WBC Ur Squamous Epith Cells Urine Mucus Ur Culture Indicated? Blood Type Antibody Screen Crossmatch - Diagnostic Findings Procedure: Chest x-ray: image reviewed by me, report reviewed by me - EKG EKG results: interpreted by me, no acute changes EKG shows: sinus rhythm Quality Measures - VTE Contraindication to Pharmacological VTE Prophylaxis: High Risk of Bleeding Specialty Discharge - Follow Up or Referrals IGeorgia Shea, , personally performed the services described in this documentation, ascribed by Geri Aldridge RN in my presence, and it is both accurate and complete 840 .
[2017-04-18] MEDS: PANTOPRAZOLE 40 MG TABLET PO SCH (08:41)
[2017-04-18] MEDS: CARVEDILOL 3.125 MG TABLET PO SCH (08:41)
[2017-04-18] MEDS: ASPIRIN CHEW 81 MG TABLET PO SCH (08:41)
[2017-04-18] MEDS: LISINOPRIL 10 MG TABLET PO SCH (08:41)
[2017-04-18] MEDS: PHENYLEPHRINE DRIP 40 MG/250 ML PREMIX IV PRN (10:11)
--- NOTE | 2017-04-18 11:13 | Anesthesia Post-Op ---
Anesthesia Post OP - Post Ansesthetic Evaluation Patient seen in post op: Yes Resp: within normal limits CV: within normal limits Mental: within normal limits Temp: within normal limits [id number]: within normal limits Nausea and Vomiting: within normal limits Pain: within normal limits
[2017-04-18] MEDS ORDERED: INSULIN REGULAR 100 UNIT/ML SUBCUT SCH (12:00)
[2017-04-18] MEDS ORDERED: MAGNESIUM SULF RIDER 4 GM in PREMIX 1 EACH IV PRN (12:16)
[2017-04-18] MEDS ORDERED: ALUMINUM/MAGNES/SIMETH MAX STR 30 ML UDCUP PO PRN (12:16)
[2017-04-18] MEDS ORDERED: SODIUM CHLOR 0.45% KCL 20 MEQ 20 MEQ/1,000 ML BAG IV SCH (12:16)
[2017-04-18] MEDS ORDERED: POTASSIUM CHLORIDE 20 MEQ TABLET PO PRN (12:16)
[2017-04-18] MEDS ORDERED: ONDANSETRON 4 MG/2 ML VIAL IV PRN (12:16)
[2017-04-18] MEDS ORDERED: DEXTROSE 50% 25 GM/50 ML VIAL IV PRN ×2 (12:16)
[2017-04-18] MEDS ORDERED: ACETAMINOPHEN 325 MG TABLET PO PRN (12:16)
[2017-04-18] MEDS ORDERED: GLUCAGON 1 MG VIAL IM PRN ×2 (12:16)
[2017-04-18] MEDS ORDERED: MAGNESIUM SULF RIDER 2 GM in PREMIX 1 EACH IV PRN (12:16)
[2017-04-18] MEDS ORDERED: MAGNESIUM HYDROXIDE SUSP 30 ML UDCUP PO PRN (12:16)
--- NOTE | 2017-04-18 13:05 | Sleep Medicine Consult ---
Assessment and Plan (1) Sleep disorder Status: Chronic Assessment and plan: This patient very likely has significant sleep apnea based on his comorbidities and history. We will set him up for sleep study evaluation. He will require some improvement in his overall condition before he can undergo HST. If we are unable to get that done while hospitalized, we will set him up for outpatient polysomnography. Current Visit: Yes (2) Hypertension Status: Chronic Assessment and plan: The prevalence rate for obstructive sleep apnea patients with hypertension is 35 %. That rate can be as high as 80% in patients who require 4 or more medications for blood pressure control. Current Visit: Yes (3) CAD (coronary artery disease) Status: Chronic Assessment and plan: The [place] data from Lancet 2005 proved significant reduction in the risk of fatal and nonfatal cardiac events in patients with severe obstructive sleep apnea compliant with CPAP, in comparison with those noncompliant with CPAP for severe sleep apnea. Current Visit: Yes Qualifiers: Coronary Disease-Associated Artery/Lesion type: [place] artery [place] vs. transplanted heart: [place] heart Associated angina: without angina Qualified Code(s): I25.10 - Atherosclerotic heart disease of [place] coronary artery without angina pectoris (4) Diabetes Status: Chronic Assessment and plan: The prevalence rate for obstructive sleep apnea in patients with type 2 diabetes can be as high as 86%. Those patients with moderate to severe obstructive sleep apnea are at a greater risk for diabetic nephropathy and neuropathy. Compliance with CPAP therapy for these patients can lead to improvement in glycemic control and improvement in insulin sensitivity. Current Visit: Yes Qualifiers: Diabetes mellitus type: type 2 History of Present Illness Chief complaint: Sleep apnea History of present illness: Mr. Mccloud is a 71 year old male admitted with chest pain last week and underwent cardiac cath and was found to have triple-vessel coronary artery disease. During the heart cath, he was noted to have abnormal breathing with witnessed apneas. Sleep medicine was consulted. He underwent bypass surgery yesterday with good results and was extubated today. He is alert and responsive in sitting up and eating. He does have a long history of snoring and abnormal breathing during sleep with witnessed apneas. He is bothered by fatigue and sleepiness during the day. He usually gets up once or twice to urinate. He does have significant past medical history of hypertension and type 2 diabetes. Home Medications Medication Instructions Recorded Confirmed Type Aspirin 81 mg PO DAILY 04/13/17 04/14/17 History Etodolac 500 mg PO BID W/MEALS 04/13/17 04/14/17 History Lisinopril 10 mg PO DAILY 04/13/17 04/14/17 History Omeprazole [Prilosec] 20 mg PO DAILY 04/13/17 04/14/17 History Simvastatin 40 mg PO BEDTIME 04/13/17 04/14/17 History Carvedilol [Coreg] 3.125 mg PO DAILY 04/14/17 04/14/17 History Allergies Allergy/AdvReac Type Severity Reaction Status Date / Time No Known Allergies Allergy Verified 04/14/17 11:02 Review of systems: Otherwise unremarkable from a sleep medicine standpoint. Exam ([place]) H&P - Constitutional Vitals: Period Temp Pulse Resp BP Sys/Ryan Pulse Ox Last 24 Hr 96.6 F-98.7 F 67-83 10-18 74-155/37-73 94-100 Exam: He is alert and responsive in no acute distress. Pupils equal round reactive to light and accommodation. Extraocular movements intact. Oropharynx with a class III Mallampati exam. Neck is supple without adenopathy or thyromegaly. No supraclavicular adenopathy is noted. Chest with symmetrical breath sounds. Sternal wound incision is covered with a clean dry dressing. Abdomen obese nontender without palpable hepatosplenomegaly or mass. Extremities are without significant clubbing, cyanosis or edema. Neurologically, he is grossly intact. He moves all extremities with good strength and is alert and oriented. Medical,Surgical,& Family Hx - Medical History Cardio: History of: CAD, Hypertension Neurology: No history of: Seizures Endocrine: History of: Diabetes Mellitus (NIDDM), Dyslipidemia Genitourinary: History of: Prostate Problems Gastrointestinal: History of: GERD Other: History of: Cancer (prostate) - Surgical History Cardiac Surgeries: Sugical HX of: Cardiac Catheterization HEENT Surgeries: Surgical HX of: Tonsilectomy & Adenoidectomy Abdominal Surgeries: Surgical HX of: Appendectomy Reproductive Surgeries: Surgical HX of;: Prostate Surgery (seed implant for radiation) - Family History Family History: Reports;: Family Heart Disease - Social History Smoking Status: Former smoker Frequency of Alcohol Use: Rarely Type of Drug Use: None Results - Labs CBC & BMP: 04/18/17 05:35 04/18/17 03:05 Lab Results: I have reviewed the past 24 hour labs Quality Measures - VTE Contraindication to Pharmacological VTE Prophylaxis: High Risk of Bleeding Specialty Discharge - Follow Up or Referrals
[2017-04-18] MEDS: DOCUSATE SODIUM 100 MG CAPSULE PO SCH (13:24)
[2017-04-18] MEDS: FERROUS SULFATE 325 MG TABLET PO SCH (13:24)
[2017-04-18] MEDS: SIMVASTATIN 40 MG TABLET PO SCH (21:31)
[2017-04-19] MEDS: KETOROLAC 30 MG/1 ML VIAL IV SCH ×4 (00:33→18:25)
[2017-04-19] MEDS: ZALEPLON 5 MG CAPSULE PO PRN ×2 (00:41→21:16)
[2017-04-19 04:58] LABS: Basophils % 0.1 % (0.0-0.8); Hematocrit 26.6 VOL% (42.0-52.0); Hemoglobin 8.9 GM/DL (14.0-18.0); Immature Granulocytes % 0.6 %; Immature Granulocytes Absolute 0.09 #; Lymphocytes # 1.2 10*3/uL (1.4-4.0); Mean Corpuscular HGB Conc 33.5 GM/DL (32-36); Mean Corpuscular Hemoglobin 30 PG (27-34); Mean Corpuscular Volume 89.6 FL (87-102); Monocytes # 1.3 10*3/uL (0.11-0.8); Monocytes % 8.3 % (1.7-12.7); Neutrophils # 12.7 10*3/uL (1.4-7.4); Platelet Count 107 T/CUMM (130-400); Red Blood Count 2.97 MC/CUMM (3.8-5.5); Red Cell Distribution Width 14.3 % (9.3-17.3); White Blood Count 15.3 T/CUMM (4-12)
[2017-04-19 05:39] LABS: Alanine Aminotransferase 15 U/L (16-61); Albumin 3.4 G/DL (3.4-5.0); Alkaline Phosphatase 34 U/L (45-117); Aspartate Amino Transferase 17 U/L (0-37); Bilirubin,Indirect 0.7 MG/DL (0.0-1.0); Blood Urea Nitrogen 26 MG/DL (7-18); Glucose 124 MG/DL (74-106); Magnesium 2.5 MG/DL (1.8-2.4); Osmolality,Calculated 291.8 MOS/KG (273-304); Potassium 4.2 MMOL/L (3.5-5.1); Sodium 144 MMOL/L (136-145); Total Protein 5.3 G/DL (6.4-8.3)
[2017-04-19 05:40] LABS: Troponin I Only 0.803 NG/ML (0.00-0.045)
[2017-04-19] MEDS ORDERED: FUROSEMIDE 40 MG/4 ML VIAL IV ONE (06:00)
--- NOTE | 2017-04-19 06:31 | Cardiothoracic Progress Note ---
Cardiothoracic Subjective Interval history: Patient looks and feels fine. He has some generalized soreness but otherwise is okay. Vital signs are stable and is breathing comfortably. He still has a small air leak from going to have to leave his chest tubes in. Otherwise we will gradually increase his activity as tolerated. Exam (Progress Note) - Constitutional Vitals: Period Temp Pulse Resp BP Sys/Ryan Pulse Ox Last 24 Hr 97.6 F-98.9 F 70-91 14-20 99-133/46-67 92-96 Result/EKG - Labs CBC & BMP: 04/19/17 04:54 04/19/17 04:57 Labs: Laboratory Results - last 24 hr 04/16/17 04/17/17 04/17/17 15:45 16:01 18:05 WBC RBC Hgb Hct MCV MCH MCHC RDW Plt Count MPV Neut % (Auto) Lymph % (Auto) [place] % (Auto) Eos % (Auto) Baso % (Auto) Neut # (Auto) Lymph # (Auto) [place] # (Auto) Eos # (Auto) Baso # (Auto) Immature Gran % Nucleated RBC % Immature Gran # Nucleated RBCs # Immature Plt Fraction ABG pH ABG pCO2 ABG pO2 ABG HCO3 ABG Total CO2 ABG O2 Saturation ABG Base Excess Hemoglobin Hematocrit Potassium Glucose Sodium Chloride Carbon Dioxide Anion Gap BUN Creatinine GFR Calculation BUN/Creatinine Ratio POC Glucose 154 H 158 H Calculated Osmolality Calcium Magnesium Total Bilirubin Direct Bilirubin Indirect Bilirubin AST ALT Alkaline Phosphatase Total Creatine Kinase CK-MB (CK-2) Troponin I Total Protein Albumin Globulin Albumin/Globulin Ratio Crossmatch See Detail 04/17/17 04/17/17 04/17/17 20:12 20:58 22:09 WBC RBC Hgb Hct MCV MCH MCHC RDW Plt Count MPV Neut % (Auto) Lymph % (Auto) [place] % (Auto) Eos % (Auto) Baso % (Auto) Neut # (Auto) Lymph # (Auto) [place] # (Auto) Eos # (Auto) Baso # (Auto) Immature Gran % Nucleated RBC % Immature Gran # Nucleated RBCs # Immature Plt Fraction ABG pH ABG pCO2 ABG pO2 ABG HCO3 ABG Total CO2 ABG O2 Saturation ABG Base Excess Hemoglobin Hematocrit Potassium Glucose Sodium Chloride Carbon Dioxide Anion Gap BUN Creatinine GFR Calculation BUN/Creatinine Ratio POC Glucose 135 H 125 H 117 H Calculated Osmolality Calcium Magnesium Total Bilirubin Direct Bilirubin Indirect Bilirubin AST ALT Alkaline Phosphatase Total Creatine Kinase CK-MB (CK-2) Troponin I Total Protein Albumin Globulin Albumin/Globulin Ratio Crossmatch 04/17/17 04/18/17 04/18/17 23:01 00:15 00:57 WBC RBC Hgb Hct MCV MCH MCHC RDW Plt Count MPV Neut % (Auto) Lymph % (Auto) [place] % (Auto) Eos % (Auto) Baso % (Auto) Neut # (Auto) Lymph # (Auto) [place] # (Auto) Eos # (Auto) Baso # (Auto) Immature Gran % Nucleated RBC % Immature Gran # Nucleated RBCs # Immature Plt Fraction ABG pH ABG pCO2 ABG pO2 ABG HCO3 ABG Total CO2 ABG O2 Saturation ABG Base Excess Hemoglobin Hematocrit Potassium Glucose Sodium Chloride Carbon Dioxide Anion Gap BUN Creatinine GFR Calculation BUN/Creatinine Ratio POC Glucose 134 H 119 H 126 H Calculated Osmolality Calcium Magnesium Total Bilirubin Direct Bilirubin Indirect Bilirubin AST ALT Alkaline Phosphatase Total Creatine Kinase CK-MB (CK-2) Troponin I Total Protein Albumin Globulin Albumin/Globulin Ratio Crossmatch 04/18/17 04/18/17 04/18/17 02:07 04:20 05:24 WBC RBC Hgb Hct MCV MCH MCHC RDW Plt Count MPV Neut % (Auto) Lymph % (Auto) [place] % (Auto) Eos % (Auto) Baso % (Auto) Neut # (Auto) Lymph # (Auto) [place] # (Auto) Eos # (Auto) Baso # (Auto) Immature Gran % Nucleated RBC % Immature Gran # Nucleated RBCs # Immature Plt Fraction ABG pH ABG pCO2 ABG pO2 ABG HCO3 ABG Total CO2 ABG O2 Saturation ABG Base Excess Hemoglobin Hematocrit Potassium Glucose Sodium Chloride Carbon Dioxide Anion Gap BUN Creatinine GFR Calculation BUN/Creatinine Ratio POC Glucose 130 H 138 H 132 H Calculated Osmolality Calcium Magnesium Total Bilirubin Direct Bilirubin Indirect Bilirubin AST ALT Alkaline Phosphatase Total Creatine Kinase CK-MB (CK-2) Troponin I Total Protein Albumin Globulin Albumin/Globulin Ratio Crossmatch 04/18/17 04/18/17 04/18/17 06:11 06:34 06:58 WBC RBC Hgb Hct MCV MCH MCHC RDW Plt Count MPV Neut % (Auto) Lymph % (Auto) [place] % (Auto) Eos % (Auto) Baso % (Auto) Neut # (Auto) Lymph # (Auto) [place] # (Auto) Eos # (Auto) Baso # (Auto) Immature Gran % Nucleated RBC % Immature Gran # Nucleated RBCs # Immature Plt Fraction ABG pH 7.377 7.389 ABG pCO2 43.0 41.0 ABG pO2 102.0 H 75.2 L ABG HCO3 24.4 24.3 ABG Total CO2 23.1 22.7 L ABG O2 Saturation 97.5 94.9 L ABG Base Excess 0.0 -0.1 Hemoglobin 9.7 L 9.5 L Hematocrit 29.9 L 29.3 L Potassium 4.0 4.0 Glucose 140 H 139 H Sodium Chloride Carbon Dioxide Anion Gap BUN Creatinine GFR Calculation BUN/Creatinine Ratio POC Glucose 130 H Calculated Osmolality Calcium Magnesium Total Bilirubin Direct Bilirubin Indirect Bilirubin AST ALT Alkaline Phosphatase Total Creatine Kinase CK-MB (CK-2) Troponin I Total Protein Albumin Globulin Albumin/Globulin Ratio Crossmatch 04/18/17 04/18/17 04/18/17 07:11 08:04 16:50 WBC RBC Hgb Hct MCV MCH MCHC RDW Plt Count MPV Neut % (Auto) Lymph % (Auto) [place] % (Auto) Eos % (Auto) Baso % (Auto) Neut # (Auto) Lymph # (Auto) [place] # (Auto) Eos # (Auto) Baso # (Auto) Immature Gran % Nucleated RBC % Immature Gran # Nucleated RBCs # Immature Plt Fraction ABG pH ABG pCO2 ABG pO2 ABG HCO3 ABG Total CO2 ABG O2 Saturation ABG Base Excess Hemoglobin Hematocrit Potassium Glucose Sodium Chloride Carbon Dioxide Anion Gap BUN Creatinine GFR Calculation BUN/Creatinine Ratio POC Glucose 150 H 136 H 203 H Calculated Osmolality Calcium Magnesium Total Bilirubin Direct Bilirubin Indirect Bilirubin AST ALT Alkaline Phosphatase Total Creatine Kinase CK-MB (CK-2) Troponin I Total Protein Albumin Globulin Albumin/Globulin Ratio Crossmatch 04/18/17 04/19/17 04/19/17 21:29 00:31 04:54 WBC 15.3 H RBC 2.97 L Hgb 8.9 L Hct 26.6 L MCV 89.6 MCH 30 MCHC 33.5 RDW 14.3 Plt Count 107 L MPV 12.0 Neut % (Auto) 83.0 H Lymph % (Auto) 8.0 L [place] % (Auto) 8.3 Eos % (Auto) 0.0 Baso % (Auto) 0.1 Neut # (Auto) 12.7 H Lymph # (Auto) 1.2 L [place] # (Auto) 1.3 H Eos # (Auto) 0.0 Baso # (Auto) 0.0 Immature Gran % 0.6 Nucleated RBC % 0.0 Immature Gran # 0.09 Nucleated RBCs # 0.00 Immature Plt Fraction 0.0 ABG pH ABG pCO2 ABG pO2 ABG HCO3 ABG Total CO2 ABG O2 Saturation ABG Base Excess Hemoglobin Hematocrit Potassium Glucose Sodium Chloride Carbon Dioxide Anion Gap BUN Creatinine GFR Calculation BUN/Creatinine Ratio POC Glucose 178 H 140 H Calculated Osmolality Calcium Magnesium Total Bilirubin Direct Bilirubin Indirect Bilirubin AST ALT Alkaline Phosphatase Total Creatine Kinase CK-MB (CK-2) Troponin I Total Protein Albumin Globulin Albumin/Globulin Ratio Crossmatch 04/19/17 04/19/17 04:56 04:57 WBC RBC Hgb Hct MCV MCH MCHC RDW Plt Count MPV Neut % (Auto) Lymph % (Auto) [place] % (Auto) Eos % (Auto) Baso % (Auto) Neut # (Auto) Lymph # (Auto) [place] # (Auto) Eos # (Auto) Baso # (Auto) Immature Gran % Nucleated RBC % Immature Gran # Nucleated RBCs # Immature Plt Fraction ABG pH ABG pCO2 ABG pO2 ABG HCO3 ABG Total CO2 ABG O2 Saturation ABG Base Excess Hemoglobin Hematocrit Potassium 4.2 Glucose 124 H Sodium 144 Chloride 109 H Carbon Dioxide 29 Anion Gap 10.2 BUN 26 H Creatinine 0.80 GFR Calculation 104 BUN/Creatinine Ratio 32.00 H POC Glucose 135 H Calculated Osmolality 291.8 Calcium 8.0 L Magnesium 2.5 H Total Bilirubin 0.90 Direct Bilirubin 0.200 Indirect Bilirubin 0.7 AST 17 ALT 15 L Alkaline Phosphatase 34 L Total Creatine Kinase 310 H D CK-MB (CK-2) 3.1 D Troponin I 0.803 H D Total Protein 5.3 L Albumin 3.4 Globulin 1.9 L Albumin/Globulin Ratio 1.7 Crossmatch Quality Measures - VTE Contraindication to Pharmacological VTE Prophylaxis: High Risk of Bleeding Specialty Discharge - Follow Up or Referrals
--- NOTE | 2017-04-19 07:42 | XRay Report ---
History: Shortness of breath Date: 04/19/2017 Study: Chest x-ray AP portable Comparison exam: 04/18/2017 The right IJ central line remains in satisfactory position. Chest drainage tubes overlie the mediastinum. The patient has been extubated. The right subclavian [place] catheter has been removed. There is no pneumothorax. There is some improving soft tissue emphysema of the left chest wall. There is stable cardiomegaly. The mediastinal contours are stable in this patient status post median sternotomy. The pulmonary vasculature is not engorged. There is some continued mild atelectatic change in the lung bases, left more than right, though this is improved. There is no new or worsening infiltrate. There is no increasing pleural effusion. There is moderate thoracic spondylosis. Impression: No evidence of a pneumothorax following removal of multiple supporting tubes and lines. Persistent but improving bibasilar atelectasis PROCEDURE INTERPRETED AT [facility] DEPARTMENT OF RADIOLOGY Final Report Signed by: Dr. Nuria Piedra
[2017-04-19] MEDS: PANTOPRAZOLE 40 MG TABLET PO SCH ×2 (07:56→08:47)
[2017-04-19] MEDS: CHLORHEXIDINE 0.12% ORAL RINSE 60 ML BOTTLE SWISH/SPIT SCH ×3 (07:57→21:17)
[2017-04-19] MEDS: CHLORHEXIDINE 4% SOLN 118 ML BOTTLE TOP SCH (07:57)
[2017-04-19] MEDS: LOSARTAN 25 MG TABLET PO SCH (07:57)
[2017-04-19] MEDS: ASPIRIN EC 81 MG TABLET PO SCH (07:57)
[2017-04-19] MEDS: CARVEDILOL 6.25 MG TABLET PO SCH (07:58)
[2017-04-19] MEDS: ETODOLAC 500 MG PO SCH (07:58)
[2017-04-19] MEDS: FERROUS SULFATE 325 MG TABLET PO SCH (08:47)
[2017-04-19] MEDS: CARVEDILOL 3.125 MG TABLET PO SCH (08:47)
[2017-04-19] MEDS: DOCUSATE SODIUM 100 MG CAPSULE PO SCH (08:48)
[2017-04-19] MEDS: ASPIRIN CHEW 81 MG TABLET PO SCH (08:48)
[2017-04-19] MEDS: LISINOPRIL 10 MG TABLET PO SCH (08:58)
--- NOTE | 2017-04-19 15:19 | Cardiology Progress Note ---
Luis Carlos Parra Vanessa RN, am scribing for, and in the presence of, Aide Shanks DO 15 :19. Assessment and Plan - Time spent with patient Time spent with patient: Greater than 30 minutes (1) S/P CABG x 3 Status: Acute Assessment and plan: Postoperative day #2 status post bypass grafting 3 with STOVALL to OM, SVG to LAD , and SVG to RCA. Continues to progress well. Vitals stable. No dysrhythmia. Current Visit: Yes (2) CAD (coronary artery disease) Status: Chronic Assessment and plan: Severe three-vessel coronary disease now status post coronary artery bypass grafting 3.. Current Visit: Yes Qualifiers: Coronary Disease-Associated Artery/Lesion type: [place] artery [place] vs. transplanted heart: [place] heart Associated angina: without angina Qualified Code(s): I25.10 - Atherosclerotic heart disease of [place] coronary artery without angina pectoris (3) Diabetes Status: Chronic Assessment and plan: Chronic and uncontrolled. He has a history of glucose intolerance. Diabetes education has been consulted, and they have seen patient this admission. Review of glucose levels over the weekend show relatively stable glycemia. Current Visit: Yes Qualifiers: Diabetes mellitus type: type 2 (4) Dyslipidemia Status: Chronic Assessment and plan: Continue statin. Recent lipid panel in clinic with total cholesterol 239, triglycerides 148, HDL 48, LDL 162. Atorvastatin was increased to 80 mg PO daily. Current Visit: Yes (5) Hypertension Status: Chronic Assessment and plan: Relatively well controlled on current antihypertensive regimen. Continue to monitor and adjust as medical condition evolves. Current Visit: Yes (6) Obesity (BMI 30.0-34.9) Status: Chronic Assessment and plan: Dietitian consult has been placed. Current Visit: Yes (7) Sleep disorder Status: Chronic Assessment and plan: History of obstructive sleep apnea. Sleep medicine has been consulted for polysomnography. Current Visit: Yes (8) GERD (gastroesophageal reflux disease) Status: Chronic Assessment and plan: Continue PPI. Current Visit: Yes Cardiology - PN: Subj Interval history: [employer]: DR. SHANKS SUMMARY: Mr. Mccloud, 71 year old WM, with risk factors significant for: Hypertension, diabetes, dyslipidemia, obesity, and is a former smoker. Patient presented to [facility] on April 14 for left heart catheterization due to progressive unstable angina over the course of approximately 1 year and echocardiogram with regional wall motion abnormality. Cardiac cath revealed severe three-vessel coronary artery disease, preserved EF 65%. He was admitted to [facility] telemetry unit for close observation, and cardiovascular surgery consulted for bypass grafting. Over the weekend, he was felt by Dr. Zapata. He had no anginal complaint, and vitals were stable. CABG 3 with STOVALL to OM, SVG to LAD, SVG to RCA on April [address] Mac. He did have to be taken back to the OR later the same afternoon for post op hemorrhage ( bleeding at the distal circumflex anastomosis). He has since progressed well, and he was transferred from CVR to telemetry on postop day #1, April 18. March: Vitals stable overnight. Sinus rhythm with heart rate 80s without disturbance. Patient has some moderate chest sore related to surgical incision. No dyspnea. Chest tubes are staying in due to small air leak. Labs reviewed. Cardiac isoenzymes trending down appropriately. Electrolytes and renal function stable. Mr. Mccloud is extubated he looks good he states he is tired today of course would be expected routine postop course. He has no other complaints emphasized to him again today the importance of using his incentive spirometer. He states that he is compliant with this. Exam (Progress Note) - Constitutional Vitals: Period Temp Pulse Resp BP Sys/Ryan Pulse Ox Last 24 Hr 97.6 F-98.9 F 70-91 16-20 100-122/48-55 92-96 Exam: General appearance: over weight, no acute distress - Head Head exam: Present: Normal inspection. No hematoma, laceration, abrasion - Eye Eye exam: Present: EOMI Pupils: Present: SHELL - Neck Neck exam: Present: normal inspection. No tenderness. No JVD, bruit - Respiratory Respiratory exam: Present: rhonchi (Primarily upper airway noise). No wheeze, rales, stridor - Cardiovascular Cardiovascular exam: Present: regular rate and rhythm (He has a triphasic rub). - GI/Abdominal GI/Abdominal exam: Present: normal bowel sounds, soft. No tenderness, mass, firm, guarding. - Extremities Exam Extremities exam: Present: other (Graft harvest site looks good) - Back Exam Back exam: Present: normal inspection - Neurological Exam Neurological exam: Present: alert, oriented - Skin Skin exam: Present: normal color, warm, dry His color is good he has a chest tube that remains he has a pericardial rub. His lungs are clear with a fairly good effort. Result/EKG - Labs CBC & BMP: 04/19/17 04:54 04/19/17 04:57 Lab Results: I have reviewed the past 24 hour labs Labs: Laboratory Results - last 24 hr 04/16/17 04/17/17 04/17/17 15:45 16:01 18:05 WBC RBC Hgb Hct MCV MCH MCHC RDW Plt Count MPV Neut % (Auto) Lymph % (Auto) [place] % (Auto) Eos % (Auto) Baso % (Auto) Neut # (Auto) Lymph # (Auto) [place] # (Auto) Eos # (Auto) Baso # (Auto) Immature Gran % Nucleated RBC % Immature Gran # Nucleated RBCs # Immature Plt Fraction Sodium Potassium Chloride Carbon Dioxide Anion Gap BUN Creatinine GFR Calculation BUN/Creatinine Ratio Glucose POC Glucose 154 H 158 H Calculated Osmolality Calcium Magnesium Total Bilirubin Direct Bilirubin Indirect Bilirubin AST ALT Alkaline Phosphatase Total Creatine Kinase CK-MB (CK-2) Troponin I Total Protein Albumin Globulin Albumin/Globulin Ratio Crossmatch See Detail 04/17/17 04/17/17 04/17/17 20:12 20:58 22:09 WBC RBC Hgb Hct MCV MCH MCHC RDW Plt Count MPV Neut % (Auto) Lymph % (Auto) [place] % (Auto) Eos % (Auto) Baso % (Auto) Neut # (Auto) Lymph # (Auto) [place] # (Auto) Eos # (Auto) Baso # (Auto) Immature Gran % Nucleated RBC % Immature Gran # Nucleated RBCs # Immature Plt Fraction Sodium Potassium Chloride Carbon Dioxide Anion Gap BUN Creatinine GFR Calculation BUN/Creatinine Ratio Glucose POC Glucose 135 H 125 H 117 H Calculated Osmolality Calcium Magnesium Total Bilirubin Direct Bilirubin Indirect Bilirubin AST ALT Alkaline Phosphatase Total Creatine Kinase CK-MB (CK-2) Troponin I Total Protein Albumin Globulin Albumin/Globulin Ratio Crossmatch 04/17/17 04/18/17 04/18/17 23:01 00:15 00:57 WBC RBC Hgb Hct MCV MCH MCHC RDW Plt Count MPV Neut % (Auto) Lymph % (Auto) [place] % (Auto) Eos % (Auto) Baso % (Auto) Neut # (Auto) Lymph # (Auto) [place] # (Auto) Eos # (Auto) Baso # (Auto) Immature Gran % Nucleated RBC % Immature Gran # Nucleated RBCs # Immature Plt Fraction Sodium Potassium Chloride Carbon Dioxide Anion Gap BUN Creatinine GFR Calculation BUN/Creatinine Ratio Glucose POC Glucose 134 H 119 H 126 H Calculated Osmolality Calcium Magnesium Total Bilirubin Direct Bilirubin Indirect Bilirubin AST ALT Alkaline Phosphatase Total Creatine Kinase CK-MB (CK-2) Troponin I Total Protein Albumin Globulin Albumin/Globulin Ratio Crossmatch 04/18/17 04/18/17 04/18/17 02:07 04:20 05:24 WBC RBC Hgb Hct MCV MCH MCHC RDW Plt Count MPV Neut % (Auto) Lymph % (Auto) [place] % (Auto) Eos % (Auto) Baso % (Auto) Neut # (Auto) Lymph # (Auto) [place] # (Auto) Eos # (Auto) Baso # (Auto) Immature Gran % Nucleated RBC % Immature Gran # Nucleated RBCs # Immature Plt Fraction Sodium Potassium Chloride Carbon Dioxide Anion Gap BUN Creatinine GFR Calculation BUN/Creatinine Ratio Glucose POC Glucose 130 H 138 H 132 H Calculated Osmolality Calcium Magnesium Total Bilirubin Direct Bilirubin Indirect Bilirubin AST ALT Alkaline Phosphatase Total Creatine Kinase CK-MB (CK-2) Troponin I Total Protein Albumin Globulin Albumin/Globulin Ratio Crossmatch 04/18/17 04/18/17 04/18/17 06:11 07:11 08:04 WBC RBC Hgb Hct MCV MCH MCHC RDW Plt Count MPV Neut % (Auto) Lymph % (Auto) [place] % (Auto) Eos % (Auto) Baso % (Auto) Neut # (Auto) Lymph # (Auto) [place] # (Auto) Eos # (Auto) Baso # (Auto) Immature Gran % Nucleated RBC % Immature Gran # Nucleated RBCs # Immature Plt Fraction Sodium Potassium Chloride Carbon Dioxide Anion Gap BUN Creatinine GFR Calculation BUN/Creatinine Ratio Glucose POC Glucose 130 H 150 H 136 H Calculated Osmolality Calcium Magnesium Total Bilirubin Direct Bilirubin Indirect Bilirubin AST ALT Alkaline Phosphatase Total Creatine Kinase CK-MB (CK-2) Troponin I Total Protein Albumin Globulin Albumin/Globulin Ratio Crossmatch 04/18/17 04/18/17 04/19/17 16:50 21:29 00:31 WBC RBC Hgb Hct MCV MCH MCHC RDW Plt Count MPV Neut % (Auto) Lymph % (Auto) [place] % (Auto) Eos % (Auto) Baso % (Auto) Neut # (Auto) Lymph # (Auto) [place] # (Auto) Eos # (Auto) Baso # (Auto) Immature Gran % Nucleated RBC % Immature Gran # Nucleated RBCs # Immature Plt Fraction Sodium Potassium Chloride Carbon Dioxide Anion Gap BUN Creatinine GFR Calculation BUN/Creatinine Ratio Glucose POC Glucose 203 H 178 H 140 H Calculated Osmolality Calcium Magnesium Total Bilirubin Direct Bilirubin Indirect Bilirubin AST ALT Alkaline Phosphatase Total Creatine Kinase CK-MB (CK-2) Troponin I Total Protein Albumin Globulin Albumin/Globulin Ratio Crossmatch 04/19/17 04/19/17 04/19/17 04:54 04:56 04:57 WBC 15.3 H RBC 2.97 L Hgb 8.9 L Hct 26.6 L MCV 89.6 MCH 30 MCHC 33.5 RDW 14.3 Plt Count 107 L MPV 12.0 Neut % (Auto) 83.0 H Lymph % (Auto) 8.0 L [place] % (Auto) 8.3 Eos % (Auto) 0.0 Baso % (Auto) 0.1 Neut # (Auto) 12.7 H Lymph # (Auto) 1.2 L [place] # (Auto) 1.3 H Eos # (Auto) 0.0 Baso # (Auto) 0.0 Immature Gran % 0.6 Nucleated RBC % 0.0 Immature Gran # 0.09 Nucleated RBCs # 0.00 Immature Plt Fraction 0.0 Sodium 144 Potassium 4.2 Chloride 109 H Carbon Dioxide 29 Anion Gap 10.2 BUN 26 H Creatinine 0.80 GFR Calculation 104 BUN/Creatinine Ratio 32.00 H Glucose 124 H POC Glucose 135 H Calculated Osmolality 291.8 Calcium 8.0 L Magnesium 2.5 H Total Bilirubin 0.90 Direct Bilirubin 0.200 Indirect Bilirubin 0.7 AST 17 ALT 15 L Alkaline Phosphatase 34 L Total Creatine Kinase 310 H D CK-MB (CK-2) 3.1 D Troponin I 0.803 H D Total Protein 5.3 L Albumin 3.4 Globulin 1.9 L Albumin/Globulin Ratio 1.7 Crossmatch 04/19/17 07:26 WBC RBC Hgb Hct MCV MCH MCHC RDW Plt Count MPV Neut % (Auto) Lymph % (Auto) [place] % (Auto) Eos % (Auto) Baso % (Auto) Neut # (Auto) Lymph # (Auto) [place] # (Auto) Eos # (Auto) Baso # (Auto) Immature Gran % Nucleated RBC % Immature Gran # Nucleated RBCs # Immature Plt Fraction Sodium Potassium Chloride Carbon Dioxide Anion Gap BUN Creatinine GFR Calculation BUN/Creatinine Ratio Glucose POC Glucose 137 H Calculated Osmolality Calcium Magnesium Total Bilirubin Direct Bilirubin Indirect Bilirubin AST ALT Alkaline Phosphatase Total Creatine Kinase CK-MB (CK-2) Troponin I Total Protein Albumin Globulin Albumin/Globulin Ratio Crossmatch - EKG EKG results: interpreted by me, no acute changes EKG shows: sinus rhythm Quality Measures - VTE Contraindication to Pharmacological VTE Prophylaxis: High Risk of Bleeding Specialty Discharge - Follow Up or Referrals Georgia Parra Shea, DO, personally performed the services described in this documentation, ascribed by Geri Aldridge RN in my presence, and it is both accurate and complete 519 .
[2017-04-19] MEDS: SIMVASTATIN 40 MG TABLET PO SCH (21:16)
[2017-04-20] MEDS: KETOROLAC 30 MG/1 ML VIAL IV SCH ×4 (00:48→18:12)
[2017-04-20 04:45] LABS: Basophils % 0.1 % (0.0-0.8); Eosinophils % 0.1 % (0.00-10.9); Hematocrit 28.2 VOL% (42.0-52.0); Hemoglobin 9.6 GM/DL (14.0-18.0); Immature Granulocytes % 0.4 %; Immature Granulocytes Absolute 0.05 #; Lymphocytes # 2.2 10*3/uL (1.4-4.0); Lymphocytes % 16.3 % (21.2-54.2); Mean Corpuscular Hemoglobin 31 PG (27-34); Mean Corpuscular Volume 89.8 FL (87-102); Monocytes # 1.3 10*3/uL (0.11-0.8); Monocytes % 9.3 % (1.7-12.7); Neutrophils % 73.8 % (38.7-73.9); Platelet Count 123 T/CUMM (130-400); Red Blood Count 3.14 MC/CUMM (3.8-5.5); Red Cell Distribution Width 14.4 % (9.3-17.3); White Blood Count 13.5 T/CUMM (4-12)
[2017-04-20 05:31] LABS: Alanine Aminotransferase 27 U/L (16-61); Albumin 3.3 G/DL (3.4-5.0); Alkaline Phosphatase 43 U/L (45-117); Aspartate Amino Transferase 21 U/L (0-37); Bilirubin,Indirect 0.6 MG/DL (0.0-1.0); Blood Urea Nitrogen 25 MG/DL (7-18); Calcium 8.2 MG/DL (8.5-10.1); Glucose 94 MG/DL (74-106); Magnesium 2.5 MG/DL (1.8-2.4); Osmolality,Calculated 291.7 MOS/KG (273-304); Potassium 3.7 MMOL/L (3.5-5.1); Sodium 145 MMOL/L (136-145); Total Protein 5.3 G/DL (6.4-8.3)
[2017-04-20 05:50] LABS: Troponin I Only 0.436 NG/ML (0.00-0.045)
--- NOTE | 2017-04-20 06:19 | Cardiothoracic Progress Note ---
Cardiothoracic Subjective Interval history: Patient looks and feels okay. Vital signs are stable and is breathing comfortably. He continues to have a small air leak with vigorous cough. I will probably discontinue his right angle chest tube and leave his anterior straight chest tube in place for the time being. We will try to increase his activities as permitted by the restriction of his chest tube. Exam (Progress Note) - Constitutional Vitals: Period Temp Pulse Resp BP Sys/Ryan Pulse Ox Last 24 Hr 97.6 F-99.6 F 84-110 16-20 114-137/52-77 90-94 Result/EKG - Labs CBC & BMP: 04/20/17 04:30 04/20/17 Unknown Labs: Laboratory Results - last 24 hr 04/19/17 04/19/17 04/19/17 07:26 11:09 15:49 WBC RBC Hgb Hct MCV MCH MCHC RDW Plt Count MPV Neut % (Auto) Lymph % (Auto) [place] % (Auto) Eos % (Auto) Baso % (Auto) Neut # (Auto) Lymph # (Auto) [place] # (Auto) Eos # (Auto) Baso # (Auto) Immature Gran % Nucleated RBC % Immature Gran # Nucleated RBCs # Immature Plt Fraction Sodium Potassium Chloride Carbon Dioxide Anion Gap BUN Creatinine GFR Calculation BUN/Creatinine Ratio Glucose POC Glucose 137 H 167 H 135 H Calculated Osmolality Calcium Magnesium Total Bilirubin Direct Bilirubin Indirect Bilirubin AST ALT Alkaline Phosphatase Total Creatine Kinase CK-MB (CK-2) Troponin I Total Protein Albumin Globulin Albumin/Globulin Ratio 04/19/17 04/20/17 04/20/17 19:41 00:42 03:34 WBC RBC Hgb Hct MCV MCH MCHC RDW Plt Count MPV Neut % (Auto) Lymph % (Auto) [place] % (Auto) Eos % (Auto) Baso % (Auto) Neut # (Auto) Lymph # (Auto) [place] # (Auto) Eos # (Auto) Baso # (Auto) Immature Gran % Nucleated RBC % Immature Gran # Nucleated RBCs # Immature Plt Fraction Sodium Potassium Chloride Carbon Dioxide Anion Gap BUN Creatinine GFR Calculation BUN/Creatinine Ratio Glucose POC Glucose 199 H 113 H 106 Calculated Osmolality Calcium Magnesium Total Bilirubin Direct Bilirubin Indirect Bilirubin AST ALT Alkaline Phosphatase Total Creatine Kinase CK-MB (CK-2) Troponin I Total Protein Albumin Globulin Albumin/Globulin Ratio 08/24/17 08/24/17 04:30 Unknown WBC 13.5 H RBC 3.14 L Hgb 9.6 L Hct 28.2 L MCV 89.8 MCH 31 MCHC 34.0 RDW 14.4 Plt Count 123 L MPV 12.0 Neut % (Auto) 73.8 Lymph % (Auto) 16.3 L [place] % (Auto) 9.3 Eos % (Auto) 0.1 Baso % (Auto) 0.1 Neut # (Auto) 10.0 H Lymph # (Auto) 2.2 [place] # (Auto) 1.3 H Eos # (Auto) 0.0 Baso # (Auto) 0.0 Immature Gran % 0.4 Nucleated RBC % 0.0 Immature Gran # 0.05 Nucleated RBCs # 0.00 Immature Plt Fraction 0.0 Sodium 145 Potassium 3.7 Chloride 107 Carbon Dioxide 30 Anion Gap 11.7 BUN 25 H Creatinine 0.80 GFR Calculation 108 BUN/Creatinine Ratio 31.00 H Glucose 94 POC Glucose Calculated Osmolality 291.7 Calcium 8.2 L Magnesium 2.5 H Total Bilirubin 0.80 Direct Bilirubin 0.200 Indirect Bilirubin 0.6 AST 21 ALT 27 Alkaline Phosphatase 43 L Total Creatine Kinase 176 D CK-MB (CK-2) 1.4 Troponin I 0.436 H D Total Protein 5.3 L Albumin 3.3 L Globulin 2.0 L Albumin/Globulin Ratio 1.6 Quality Measures - VTE Contraindication to Pharmacological VTE Prophylaxis: High Risk of Bleeding Specialty Discharge - Follow Up or Referrals
--- NOTE | 2017-04-20 08:06 | XRay Report ---
History is short of breath Comparison 04/19/2017 The heart is enlarged with prior median sternotomy Right central line remains No overt congestive failure or confluent infiltrates seen. There is improved aeration in the lung bases with improvement of prior minimal curly B lines No pneumothorax identified Impression: Slight improvement described above PROCEDURE INTERPRETED AT [facility] DEPARTMENT OF RADIOLOGY Final Report Signed by: Dr. Gracia Cerda
[2017-04-20] MEDS: ASPIRIN CHEW 81 MG TABLET PO SCH (10:14)
[2017-04-20] MEDS: LISINOPRIL 10 MG TABLET PO SCH (10:14)
[2017-04-20] MEDS: FERROUS SULFATE 325 MG TABLET PO SCH (10:14)
[2017-04-20] MEDS: CARVEDILOL 3.125 MG TABLET PO SCH (10:14)
[2017-04-20] MEDS: DOCUSATE SODIUM 100 MG CAPSULE PO SCH (10:14)
[2017-04-20] MEDS: CHLORHEXIDINE 0.12% ORAL RINSE 60 ML BOTTLE SWISH/SPIT SCH ×2 (10:14→21:51)
[2017-04-20] MEDS: PANTOPRAZOLE 40 MG TABLET PO SCH (10:14)
[2017-04-20] MEDS ORDERED: CARVEDILOL 3.125 MG TABLET PO SCH (13:00)
--- NOTE | 2017-04-20 13:11 | Sleep Medicine Progress Note ---
Assessment and Plan (1) Sleep disorder Status: Chronic Assessment and plan: We will follow-up next week for evaluation of possible sleep apnea either while inpatient or as outpatient with polysomnography. Current Visit: Yes (2) Hypertension Status: Chronic Current Visit: Yes (3) CAD (coronary artery disease) Status: Chronic Current Visit: Yes Qualifiers: Coronary Disease-Associated Artery/Lesion type: [place] artery [place] vs. transplanted heart: [place] heart Associated angina: without angina Qualified Code(s): I25.10 - Atherosclerotic heart disease of [place] coronary artery without angina pectoris (4) Diabetes Status: Chronic Current Visit: Yes Qualifiers: Diabetes mellitus type: type 2 Sleep Medicine Subjective Interval history: Stop back by to check on this patient. He still recovering from bypass surgery and still has chest tubes in. Overall, he appears to be doing well but I do think we should await removal of chest tube before we can do home sleep test evaluation on him. If he still here next week, we can get this done and if not , we will set him up for prompt evaluation after discharge. Exam (Progress Note) - Constitutional Vitals: Period Temp Pulse Resp BP Sys/Ryan Pulse Ox Last 24 Hr 98.5 F-99.6 F 84-110 16-20 114-139/52-77 90-95 Exam: He is alert and responsive and in no acute distress. He moves all extremities well. Chest with fair air movement. He does have a pericardial rub on cardiac exam with a regular rhythm abdomen soft nontender but obese extremities without increased edema or calf tenderness. Neurologically, he is grossly intact. Results - Labs CBC & BMP: 04/20/17 04:30 04/20/17 Unknown Lab Results: I have reviewed the past 24 hour labs Specialty Discharge - Follow Up or Referrals
--- NOTE | 2017-04-20 14:02 | Cardiology Progress Note ---
Luis Carlos Parra Vanessa RN, am scribing for, and in the presence of, Aide Shanks DO 14 :02. Assessment and Plan - Time spent with patient Time spent with patient: Greater than 30 minutes (1) S/P CABG x 3 Status: Acute Assessment and plan: Postoperative day #3 status post bypass grafting 3 with STOVALL to OM, SVG to LAD , and SVG to RCA. Continues to progress well. Vital signs and rhythm remain stable. He is increasing his activity today, and importance of using incentive spirometry was reiterated. Current Visit: Yes (2) CAD (coronary artery disease) Status: Chronic Assessment and plan: Severe three-vessel coronary disease now status post coronary artery bypass grafting 3. Current Visit: Yes Qualifiers: Coronary Disease-Associated Artery/Lesion type: [place] artery [place] vs. transplanted heart: [place] heart Associated angina: without angina Qualified Code(s): I25.10 - Atherosclerotic heart disease of [place] coronary artery without angina pectoris (3) Diabetes Status: Chronic Assessment and plan: Chronic and uncontrolled. He has a history of glucose intolerance. Diabetes education has evaluated this admit. Improved glycemic control currently. Current Visit: Yes Qualifiers: Diabetes mellitus type: type 2 (4) Dyslipidemia Status: Chronic Assessment and plan: Continue statin. Recent lipid panel in clinic with total cholesterol 239, triglycerides 148, HDL 48, LDL 162. Atorvastatin was increased to 80 mg PO daily. Current Visit: Yes (5) Hypertension Status: Chronic Assessment and plan: Relatively well controlled on current antihypertensive regimen. Continue to monitor and adjust as medical condition evolves. Current Visit: Yes (6) Obesity (BMI 30.0-34.9) Status: Chronic Assessment and plan: Dietitian consult has been placed. Current Visit: Yes (7) Sleep disorder Status: Chronic Assessment and plan: History of obstructive sleep apnea. Sleep medicine has been consulted for polysomnography. Current Visit: Yes (8) GERD (gastroesophageal reflux disease) Status: Chronic Assessment and plan: Continue PPI. Current Visit: Yes Cardiology - PN: Subj Interval history: [employer] MATE: DR. SHANKS SUMMARY: Mr. Mccloud, 71 year old WM, with risk factors significant for: Hypertension, diabetes, dyslipidemia, obesity, and is a former smoker. Patient presented to [facility] on April 14 for left heart catheterization due to progressive unstable angina over the course of approximately 1 year and echocardiogram with regional wall motion abnormality. Cardiac cath revealed severe three-vessel coronary artery disease, preserved EF 65%. He was admitted to [facility] telemetry unit for close observation, and cardiovascular surgery consulted for bypass grafting. Over the weekend, he was felt by Dr. Zapata. He had no anginal complaint, and vitals were stable. CABG 3 with STOVALL to OM, SVG to LAD, SVG to RCA on April [address] Mac. He did have to be taken back to the OR later the same afternoon for post op hemorrhage ( bleeding at the distal circumflex anastomosis). He has since progressed well, and he was transferred from CVR to telemetry on postop day #1, April 18. March: Mr. Mccloud is pleasant, appears comforable this morning. present at bedside. He has some chest wall soreness, pain controlled. No dyspnea. Appetite is fair, and he is using incentive spirometry. He is increasing his activity today. Sinus rhythm with HR averaging 80s, mild tachycardia overnight and this morning with HR no greater than 110 bpm. Labs reviewed. His is at the bedside I discussed with his and his daughter. Overall he is doing better his chest tubes remain in place. He continues to have a significant pericardial rub. I have encouraged him to continue incentive spirometer and be as mobile as possible. His heart rate is up somewhat and I would increase his beta-reena. Exam (Progress Note) - Constitutional Vitals: Period Temp Pulse Resp BP Sys/Ryan Pulse Ox Last 24 Hr 97.6 F-99.6 F 84-110 16-20 114-139/52-77 90-94 Exam: General appearance: over weight, no acute distress - Head Head exam: Present: Normal inspection. No hematoma, laceration, abrasion - Eye Eye exam: Present: EOMI Pupils: Present: SHELL - Neck Neck exam: Present: normal inspection. No tenderness. No JVD, bruit - Respiratory Respiratory exam: Present: rhonchi- improved from yesterday. No wheeze, rales, stridor - Cardiovascular Cardiovascular exam: Present: regular rate and rhythm (He has a triphasic rub). No irregular rhythm. His rates about 95. - GI/Abdominal GI/Abdominal exam: Present: normal bowel sounds, soft. No tenderness, mass, firm, guarding. - Extremities Exam Extremities exam: Present: other (Graft harvest site looks good) - Back Exam Back exam: Present: normal inspection - Neurological Exam Neurological exam: Present: alert, oriented - Skin Skin exam: Present: normal color, warm, dry. Sternotomy incision intact, appears to be healing appropriately. No cyanosis, no diaphoresis. Result/EKG - Labs CBC & BMP: 04/20/17 04:30 04/20/17 Unknown Lab Results: I have reviewed the past 24 hour labs Labs: Laboratory Results - last 24 hr 04/19/17 04/19/17 04/19/17 11:09 15:49 19:41 WBC RBC Hgb Hct MCV MCH MCHC RDW Plt Count MPV Neut % (Auto) Lymph % (Auto) [place] % (Auto) Eos % (Auto) Baso % (Auto) Neut # (Auto) Lymph # (Auto) [place] # (Auto) Eos # (Auto) Baso # (Auto) Immature Gran % Nucleated RBC % Immature Gran # Nucleated RBCs # Immature Plt Fraction Sodium Potassium Chloride Carbon Dioxide Anion Gap BUN Creatinine GFR Calculation BUN/Creatinine Ratio Glucose POC Glucose 167 H 135 H 199 H Calculated Osmolality Calcium Magnesium Total Bilirubin Direct Bilirubin Indirect Bilirubin AST ALT Alkaline Phosphatase Total Creatine Kinase CK-MB (CK-2) Troponin I Total Protein Albumin Globulin Albumin/Globulin Ratio 04/20/17 04/20/17 04/20/17 00:42 03:34 04:30 WBC 13.5 H RBC 3.14 L Hgb 9.6 L Hct 28.2 L MCV 89.8 MCH 31 MCHC 34.0 RDW 14.4 Plt Count 123 L MPV 12.0 Neut % (Auto) 73.8 Lymph % (Auto) 16.3 L [place] % (Auto) 9.3 Eos % (Auto) 0.1 Baso % (Auto) 0.1 Neut # (Auto) 10.0 H Lymph # (Auto) 2.2 [place] # (Auto) 1.3 H Eos # (Auto) 0.0 Baso # (Auto) 0.0 Immature Gran % 0.4 Nucleated RBC % 0.0 Immature Gran # 0.05 Nucleated RBCs # 0.00 Immature Plt Fraction 0.0 Sodium Potassium Chloride Carbon Dioxide Anion Gap BUN Creatinine GFR Calculation BUN/Creatinine Ratio Glucose POC Glucose 113 H 106 Calculated Osmolality Calcium Magnesium Total Bilirubin Direct Bilirubin Indirect Bilirubin AST ALT Alkaline Phosphatase Total Creatine Kinase CK-MB (CK-2) Troponin I Total Protein Albumin Globulin Albumin/Globulin Ratio 04/20/17 04/20/17 07:49 Unknown WBC RBC Hgb Hct MCV MCH MCHC RDW Plt Count MPV Neut % (Auto) Lymph % (Auto) [place] % (Auto) Eos % (Auto) Baso % (Auto) Neut # (Auto) Lymph # (Auto) [place] # (Auto) Eos # (Auto) Baso # (Auto) Immature Gran % Nucleated RBC % Immature Gran # Nucleated RBCs # Immature Plt Fraction Sodium 145 Potassium 3.7 Chloride 107 Carbon Dioxide 30 Anion Gap 11.7 BUN 25 H Creatinine 0.80 GFR Calculation 108 BUN/Creatinine Ratio 31.00 H Glucose 94 POC Glucose 120 H Calculated Osmolality 291.7 Calcium 8.2 L Magnesium 2.5 H Total Bilirubin 0.80 Direct Bilirubin 0.200 Indirect Bilirubin 0.6 AST 21 ALT 27 Alkaline Phosphatase 43 L Total Creatine Kinase 176 D CK-MB (CK-2) 1.4 Troponin I 0.436 H D Total Protein 5.3 L Albumin 3.3 L Globulin 2.0 L Albumin/Globulin Ratio 1.6 - Diagnostic Findings Procedure: Chest x-ray: image reviewed by me, report reviewed by me - EKG EKG results: interpreted by me, no acute changes EKG shows: sinus rhythm Quality Measures - VTE Contraindication to Pharmacological VTE Prophylaxis: High Risk of Bleeding Specialty Discharge - Follow Up or Referrals [place] Parra Shea, , personally performed the services described in this documentation, ascribed by Geri Aldridge RN in my presence, and it is both accurate and complete .
[2017-04-20] MEDS: SIMVASTATIN 40 MG TABLET PO SCH (21:49)
[2017-04-20] MEDS: CARVEDILOL 6.25 MG TABLET PO SCH (21:49)
[2017-04-21] MEDS: KETOROLAC 30 MG/1 ML VIAL IV SCH ×2 (00:15→05:38)
[2017-04-21 05:51] LABS: Calcium 8.2 MG/DL (8.5-10.1); Magnesium 2.3 MG/DL (1.8-2.4); Osmolality,Calculated 286.1 MOS/KG (273-304); Potassium 3.7 MMOL/L (3.5-5.1)
--- NOTE | 2017-04-21 06:22 | Cardiothoracic Progress Note ---
Cardiothoracic Subjective Interval history: Patient had a comfortable night. Vital signs have been stable and is breathing comfortably. I do not see any air leak this morning and I have clamped his chest tubes and he will get a chest x-ray later this morning. If his lungs are expanded we will remove his chest tubes today. Exam (Progress Note) - Constitutional Vitals: Period Temp Pulse Resp BP Sys/Ryan Pulse Ox Last 24 Hr 98.2 F-99.4 F 88-103 16-20 118-139/57-77 90-95 Result/EKG - Labs CBC & BMP: 04/20/17 04:30 04/21/17 04:36 Labs: Laboratory Results - last 24 hr 04/20/17 04/20/17 04/20/17 07:49 11:11 15:54 Sodium Potassium Chloride Carbon Dioxide Anion Gap BUN Creatinine GFR Calculation BUN/Creatinine Ratio Glucose POC Glucose 120 H 151 H 126 H Calculated Osmolality Calcium Magnesium 04/20/17 04/21/17 19:42 04:36 Sodium 142 Potassium 3.7 Chloride 106 Carbon Dioxide 29 Anion Gap 10.7 BUN 22 H Creatinine 0.80 GFR Calculation 107 BUN/Creatinine Ratio 27.00 H Glucose 109 H POC Glucose 141 H Calculated Osmolality 286.1 Calcium 8.2 L Magnesium 2.3 Quality Measures - VTE Contraindication to Pharmacological VTE Prophylaxis: High Risk of Bleeding Specialty Discharge - Follow Up or Referrals
[2017-04-21] MEDS: DOCUSATE SODIUM 100 MG CAPSULE PO SCH (09:13)
[2017-04-21] MEDS: FERROUS SULFATE 325 MG TABLET PO SCH (09:13)
[2017-04-21] MEDS: PANTOPRAZOLE 40 MG TABLET PO SCH (09:13)
[2017-04-21] MEDS: LISINOPRIL 10 MG TABLET PO SCH (09:13)
[2017-04-21] MEDS: CARVEDILOL 6.25 MG TABLET PO SCH ×2 (09:13→20:59)
[2017-04-21] MEDS: ASPIRIN CHEW 81 MG TABLET PO SCH (09:14)
[2017-04-21] MEDS: CHLORHEXIDINE 0.12% ORAL RINSE 60 ML BOTTLE SWISH/SPIT SCH ×2 (09:14→21:02)
--- NOTE | 2017-04-21 14:33 | XRay Report ---
Chest, 2 views History is clamped chest tubes Comparison 04/20/2017 The heart is enlarged with sequelae of prior median sternotomy. Right central line and anterior chest tubes remain. There is small amount of gas in the overlying soft tissues left chest wall. There is a small amount of lucency anteriorly adjacent to the anterior most chest tube on the lateral film with accentuated the mediastinal contours on the left likely related to a small anterior pneumothorax. No consolidated infiltrate is seen. Impression: Small amount of pneumomediastinum or anterior pneumothorax in the left PROCEDURE INTERPRETED AT [facility] DEPARTMENT OF RADIOLOGY Final Report Signed by: Dr. Gracia Cerda
--- NOTE | 2017-04-21 15:19 | Cardiology Progress Note ---
Luis Carlos Parra Vanessa RN, am scribing for, and in the presence of, Aide Shanks DO 15 :18. Assessment and Plan - Time spent with patient Time spent with patient: Greater than 30 minutes (1) S/P CABG x 3 Status: Acute Assessment and plan: Postoperative day #4 status post bypass grafting 3 with STOVALL to OM, SVG to LAD , and SVG to RCA. Continues to progress well. Vital signs and rhythm remain stable. He is gradually increasing his activity and is using his incentive spirometer. Current Visit: Yes (2) CAD (coronary artery disease) Status: Chronic Assessment and plan: Severe three-vessel coronary disease now status post coronary artery bypass grafting 3. Current Visit: Yes Qualifiers: Coronary Disease-Associated Artery/Lesion type: [place] artery [place] vs. transplanted heart: [place] heart Associated angina: without angina Qualified Code(s): I25.10 - Atherosclerotic heart disease of [place] coronary artery without angina pectoris (3) Diabetes Status: Chronic Assessment and plan: Chronic and uncontrolled. He has a history of glucose intolerance. Diabetes education has evaluated this admit. Improved glycemic control currently. Current Visit: Yes Qualifiers: Diabetes mellitus type: type 2 (4) Dyslipidemia Status: Chronic Assessment and plan: Continue statin. Recent lipid panel in clinic with total cholesterol 239, triglycerides 148, HDL 48, LDL 162. Atorvastatin was increased to 80 mg PO daily. Current Visit: Yes (5) Hypertension Status: Chronic Assessment and plan: Relatively well controlled on current antihypertensive regimen. Continue to monitor and adjust as medical condition evolves. Current Visit: Yes (6) Obesity (BMI 30.0-34.9) Status: Chronic Assessment and plan: Dietitian consult has been placed. Current Visit: Yes (7) Sleep disorder Status: Chronic Assessment and plan: History of obstructive sleep apnea. Sleep medicine has seen patient this admission. He can be further evaluated with HST / polysymnography after he is somewhat more improved postoperatively. Current Visit: Yes (8) GERD (gastroesophageal reflux disease) Status: Chronic Assessment and plan: Continue PPI. Current Visit: Yes Cardiology - PN: Subj Interval history: CRISIS INTERVENTION COUNSELOR: DR. SHANKS SUMMARY: Mr. Mccloud, 71 year old WM, with risk factors significant for: Hypertension, diabetes, dyslipidemia, obesity, and is a former smoker. Patient presented to [facility] on April 14 for left heart catheterization due to progressive unstable angina over the course of approximately 1 year and echocardiogram with regional wall motion abnormality. Cardiac cath revealed severe three-vessel coronary artery disease, preserved EF 65%. He was admitted to [facility] telemetry unit for close observation, and cardiovascular surgery consulted for bypass grafting. Over the weekend, he was felt by Dr. Zapata. He had no anginal complaint, and vitals were stable. CABG 3 with STOVALL to OM, SVG to LAD, SVG to RCA on April [address] Mac. He did have to be taken back to the OR later the same afternoon for post op hemorrhage ( bleeding at the distal circumflex anastomosis). He has since progressed well, and he was transferred from CVR to telemetry on postop day #1, April 18. March: Patient is POD #4. He is sitting up in the bedside chair this afternoon, has just finished lunch, and he appears comfortable. His and daughter are present with him this afternoon. Reports he has increased the frequency of incentive spirometer use, and he is not having any dyspnea. Some chest soreness around incision and chest to site. Air leak seems to have improved today, chest tube has been clamped, and will possibly be removed today. He had a chest x-ray earlier. SBP 120-135 mmHg. Sinus rhythm with some PACs. Mild tachycardia noted yesterday with some improvement today with heart rate around 90 by physical exam. Exam (Progress Note) - Constitutional Vitals: Period Temp Pulse Resp BP Sys/Ryan Pulse Ox Last 24 Hr 98.2 F-99.1 F 88-97 16-20 118-134/57-75 90-98 Exam: General appearance: over weight, no acute distress - Head Head exam: Present: Normal inspection. No hematoma, laceration, abrasion - Eye Eye exam: Present: EOMI Pupils: Present: SHELL - Neck Neck exam: Present: normal inspection. No tenderness. No JVD, bruit - Respiratory Respiratory exam: Present: rhonchi- improved from yesterday. No wheeze, rales, stridor - Cardiovascular Cardiovascular exam: Present: regular rate and rhythm (He has a triphasic rub). No irregular rhythm - GI/Abdominal GI/Abdominal exam: Present: normal bowel sounds, soft. No tenderness, mass, firm, guarding. - Extremities Exam Extremities exam: Present: other (Graft harvest site looks good) - Back Exam Back exam: Present: normal inspection - Neurological Exam Neurological exam: Present: alert, oriented - Skin Skin exam: Present: normal color, warm, dry. Sternotomy incision intact, appears to continue to be healing well. Result/EKG - Labs CBC & BMP: 04/20/17 04:30 04/21/17 04:36 Lab Results: I have reviewed the past 24 hour labs Labs: Laboratory Results - last 24 hr 04/20/17 04/20/17 04/21/17 15:54 19:42 04:36 Sodium 142 Potassium 3.7 Chloride 106 Carbon Dioxide 29 Anion Gap 10.7 BUN 22 H Creatinine 0.80 GFR Calculation 107 BUN/Creatinine Ratio 27.00 H Glucose 109 H POC Glucose 126 H 141 H Calculated Osmolality 286.1 Calcium 8.2 L Magnesium 2.3 04/21/17 04/21/17 07:31 11:37 Sodium Potassium Chloride Carbon Dioxide Anion Gap BUN Creatinine GFR Calculation BUN/Creatinine Ratio Glucose POC Glucose 113 H 135 H Calculated Osmolality Calcium Magnesium - Diagnostic Findings Procedure: Chest x-ray: image reviewed by me, report reviewed by me - EKG EKG results: interpreted by me, no acute changes EKG shows: sinus rhythm Quality Measures - VTE Contraindication to Pharmacological VTE Prophylaxis: High Risk of Bleeding Specialty Discharge - Follow Up or Referrals Georgia Parra Shea, DO, personally performed the services described in this documentation, ascribed by Grei Aldridge RN in my presence, and it is both accurate and complete 518 .
[2017-04-21] MEDS: SIMVASTATIN 40 MG TABLET PO SCH (20:59)
[2017-04-22 04:50] LABS: Basophils % 0.2 % (0.0-0.8); Eosinophils # 0.3 10*3/uL (0.0-0.87); Eosinophils % 2.3 % (0.00-10.9); Hematocrit 29.3 VOL% (42.0-52.0); Hemoglobin 9.7 GM/DL (14.0-18.0); Immature Granulocytes % 0.6 %; Immature Granulocytes Absolute 0.07 #; Lymphocytes # 1.8 10*3/uL (1.4-4.0); Lymphocytes % 14.4 % (21.2-54.2); Mean Corpuscular HGB Conc 33.1 GM/DL (32-36); Mean Corpuscular Hemoglobin 30 PG (27-34); Mean Corpuscular Volume 89.6 FL (87-102); Mean Platelet Volume 11.8 FL (9.6-12.0); Monocytes # 1.2 10*3/uL (0.11-0.8); Monocytes % 9.3 % (1.7-12.7); Neutrophils # 9.3 10*3/uL (1.4-7.4); Neutrophils % 73.2 % (38.7-73.9); Platelet Count 192 T/CUMM (130-400); Red Blood Count 3.27 MC/CUMM (3.8-5.5); Red Cell Distribution Width 13.5 % (9.3-17.3); White Blood Count 12.6 T/CUMM (4-12)
[2017-04-22 05:36] LABS: Alanine Aminotransferase 86 U/L (16-61); Albumin 2.7 G/DL (3.4-5.0); Alkaline Phosphatase 58 U/L (45-117); Aspartate Amino Transferase 42 U/L (0-37); Bilirubin,Indirect 0.7 MG/DL (0.0-1.0); Blood Urea Nitrogen 19 MG/DL (7-18); Calcium 8.2 MG/DL (8.5-10.1); Glucose 112 MG/DL (74-106); Magnesium 2.3 MG/DL (1.8-2.4); Osmolality,Calculated 283.3 MOS/KG (273-304); Potassium 3.7 MMOL/L (3.5-5.1); Sodium 141 MMOL/L (136-145); Total Protein 5.2 G/DL (6.4-8.3)
--- NOTE | 2017-04-22 07:56 | XRay Report ---
Exam: XR chest 2V Date: 04/22/2017 4:00 AM Indication: Shortness of breath Comparison: 04/21/2017 Technical: PA lateral Findings: Cardiomegaly with previous sternotomy. A right IJ catheter is present. Low volume effusions are present. External cardiac leads are present. Mediastinum and bony structures are otherwise intact. Lateral marginal osteophytes are noted. Impression: 1. Cardiomegaly with previous sternotomy 2. Underlying COPD and fibrotic scarring with a few granuloma changes 3. Stable appearance right IJ catheter. PROCEDURE INTERPRETED AT [facility] DEPARTMENT OF RADIOLOGY Final Report Signed by: Dr. Jaime Argueta
--- NOTE | 2017-04-22 08:50 | Cardiothoracic Progress Note ---
Cardiothoracic Subjective Interval history: Patient looks and feels better. Chest x-ray after chest tube removal looks okay. Vital signs have been stable and is breathing comfortably and I will encourage increased activity and hopefully he will be ready for discharge before long. Exam (Progress Note) - Constitutional Vitals: Period Temp Pulse Resp BP Sys/Ryan Pulse Ox Last 24 Hr 98.0 F-100.5 F 83-93 16-22 105-132/56-63 86-98 Result/EKG - Labs CBC & BMP: 04/22/17 03:46 04/22/17 03:46 Labs: Laboratory Results - last 24 hr 04/21/17 04/21/17 04/21/17 11:37 16:04 20:02 WBC RBC Hgb Hct MCV MCH MCHC RDW Plt Count MPV Neut % (Auto) Lymph % (Auto) [place] % (Auto) Eos % (Auto) Baso % (Auto) Neut # (Auto) Lymph # (Auto) [place] # (Auto) Eos # (Auto) Baso # (Auto) Immature Gran % Nucleated RBC % Immature Gran # Nucleated RBCs # Immature Plt Fraction Sodium Potassium Chloride Carbon Dioxide Anion Gap BUN Creatinine GFR Calculation BUN/Creatinine Ratio Glucose POC Glucose 135 H 169 H 158 H Calculated Osmolality Calcium Magnesium Total Bilirubin Direct Bilirubin Indirect Bilirubin AST ALT Alkaline Phosphatase Total Creatine Kinase CK-MB (CK-2) Troponin I Total Protein Albumin Globulin Albumin/Globulin Ratio 04/22/17 04/22/17 04/22/17 03:46 03:46 06:56 WBC 12.6 H RBC 3.27 L Hgb 9.7 L Hct 29.3 L MCV 89.6 MCH 30 MCHC 33.1 RDW 13.5 Plt Count 192 D MPV 11.8 Neut % (Auto) 73.2 Lymph % (Auto) 14.4 L [place] % (Auto) 9.3 Eos % (Auto) 2.3 Baso % (Auto) 0.2 Neut # (Auto) 9.3 H Lymph # (Auto) 1.8 [place] # (Auto) 1.2 H Eos # (Auto) 0.3 Baso # (Auto) 0.0 Immature Gran % 0.6 Nucleated RBC % 0.0 Immature Gran # 0.07 Nucleated RBCs # 0.00 Immature Plt Fraction 0.0 Sodium 141 Potassium 3.7 Chloride 106 Carbon Dioxide 28 Anion Gap 10.7 BUN 19 H Creatinine 0.80 GFR Calculation 107 BUN/Creatinine Ratio 23.00 H Glucose 112 H POC Glucose 127 H Calculated Osmolality 283.3 Calcium 8.2 L Magnesium 2.3 Total Bilirubin 1.00 Direct Bilirubin 0.270 H Indirect Bilirubin 0.7 AST 42 H ALT 86 H Alkaline Phosphatase 58 Total Creatine Kinase 44 D CK-MB (CK-2) 1.1 Troponin I 0.110 H D Total Protein 5.2 L Albumin 2.7 L Globulin 2.5 Albumin/Globulin Ratio 1.0 L Quality Measures - VTE Contraindication to Pharmacological VTE Prophylaxis: High Risk of Bleeding Specialty Discharge - Follow Up or Referrals
[2017-04-22] MEDS: LISINOPRIL 10 MG TABLET PO SCH (09:22)
[2017-04-22] MEDS: FERROUS SULFATE 325 MG TABLET PO SCH (09:22)
[2017-04-22] MEDS: CARVEDILOL 6.25 MG TABLET PO SCH ×2 (09:22→21:35)
[2017-04-22] MEDS: PANTOPRAZOLE 40 MG TABLET PO SCH (09:23)
[2017-04-22] MEDS: DOCUSATE SODIUM 100 MG CAPSULE PO SCH (09:23)
[2017-04-22] MEDS: CHLORHEXIDINE 0.12% ORAL RINSE 60 ML BOTTLE SWISH/SPIT SCH ×2 (09:23→21:35)
[2017-04-22] MEDS: ASPIRIN CHEW 81 MG TABLET PO SCH (09:23)
--- NOTE | 2017-04-22 10:02 | Cardiology Progress Note ---
Assessment and Plan (1) S/P CABG x 3 Status: Acute Assessment and plan: Status post bypass grafting 3 with STOVALL to OM, SVG to LAD, and SVG to RCA. Continues to progress well. He is gradually increasing his activity and is using his incentive spirometer. I will add high potency statin and replace his Zocor Current Visit: Yes (2) CAD (coronary artery disease) Status: Chronic Assessment and plan: Severe three-vessel coronary disease now status post coronary artery bypass grafting 3. Current Visit: Yes Qualifiers: Coronary Disease-Associated Artery/Lesion type: [place] artery [place] vs. transplanted heart: [place] heart Associated angina: without angina Qualified Code(s): I25.10 - Atherosclerotic heart disease of [place] coronary artery without angina pectoris (3) Diabetes Status: Chronic Assessment and plan: Chronic. Current Visit: Yes Qualifiers: Diabetes mellitus type: type 2 (4) Dyslipidemia Status: Chronic Assessment and plan: Continue statin. Atorvastatin was increased to 80 mg PO daily. Current Visit: Yes (5) Hypertension Status: Chronic Assessment and plan: Relatively well controlled on current antihypertensive regimen. Continue to monitor and adjust as medical condition evolves. Current Visit: Yes (6) Obesity (BMI 30.0-34.9) Status: Chronic Assessment and plan: Dietitian consult has been placed. Current Visit: Yes (7) Sleep disorder Status: Chronic Assessment and plan: History of obstructive sleep apnea. Sleep medicine has seen patient this admission. He can be further evaluated with HST / polysymnography after he is somewhat more improved postoperatively. Current Visit: Yes (8) GERD (gastroesophageal reflux disease) Status: Chronic Assessment and plan: Continue PPI. Current Visit: Yes Cardiology - PN: Subj Interval history: Mr. Centeno looks quite comfortable. He walks several laps around the half unit yesterday and I have encouraged him to do a little more today he states his goal is to walk around the entire unit multiple times. He has had no complaints at this time. Exam (Progress Note) - Constitutional Vitals: Period Temp Pulse Resp BP Sys/Ryan Pulse Ox Last 24 Hr 98.0 F-100.5 F 83-93 16-22 105-132/56-63 86-98 General appearance: normal weight - Head Head exam: Present: normal inspection - Eye Eye exam: Present: EOMI Pupils: Present: SHELL - Respiratory Respiratory exam: Present: other (Crackles that improved with a second effort.) - Cardiovascular Cardiovascular exam: Present: regular rate and rhythm (No gallop or rub) - GI/Abdominal GI/Abdominal exam: Present: normal bowel sounds - Neurological Exam Neurological exam: Present: alert, oriented X3 - Psychiatric Psychiatric exam: Present: normal affect, normal mood - Skin Skin exam: Present: normal color, warm, dry Result/EKG - Labs CBC & BMP: 04/22/17 03:46 04/22/17 03:46 Labs: Laboratory Results - last 24 hr 04/21/17 04/21/17 04/21/17 11:37 16:04 20:02 WBC RBC Hgb Hct MCV MCH MCHC RDW Plt Count MPV Neut % (Auto) Lymph % (Auto) [place] % (Auto) Eos % (Auto) Baso % (Auto) Neut # (Auto) Lymph # (Auto) [place] # (Auto) Eos # (Auto) Baso # (Auto) Immature Gran % Nucleated RBC % Immature Gran # Nucleated RBCs # Immature Plt Fraction Sodium Potassium Chloride Carbon Dioxide Anion Gap BUN Creatinine GFR Calculation BUN/Creatinine Ratio Glucose POC Glucose 135 H 169 H 158 H Calculated Osmolality Calcium Magnesium Total Bilirubin Direct Bilirubin Indirect Bilirubin AST ALT Alkaline Phosphatase Total Creatine Kinase CK-MB (CK-2) Troponin I Total Protein Albumin Globulin Albumin/Globulin Ratio 04/22/17 04/22/17 04/22/17 03:46 03:46 06:56 WBC 12.6 H RBC 3.27 L Hgb 9.7 L Hct 29.3 L MCV 89.6 MCH 30 MCHC 33.1 RDW 13.5 Plt Count 192 D MPV 11.8 Neut % (Auto) 73.2 Lymph % (Auto) 14.4 L [place] % (Auto) 9.3 Eos % (Auto) 2.3 Baso % (Auto) 0.2 Neut # (Auto) 9.3 H Lymph # (Auto) 1.8 [place] # (Auto) 1.2 H Eos # (Auto) 0.3 Baso # (Auto) 0.0 Immature Gran % 0.6 Nucleated RBC % 0.0 Immature Gran # 0.07 Nucleated RBCs # 0.00 Immature Plt Fraction 0.0 Sodium 141 Potassium 3.7 Chloride 106 Carbon Dioxide 28 Anion Gap 10.7 BUN 19 H Creatinine 0.80 GFR Calculation 107 BUN/Creatinine Ratio 23.00 H Glucose 112 H POC Glucose 127 H Calculated Osmolality 283.3 Calcium 8.2 L Magnesium 2.3 Total Bilirubin 1.00 Direct Bilirubin 0.270 H Indirect Bilirubin 0.7 AST 42 H ALT 86 H Alkaline Phosphatase 58 Total Creatine Kinase 44 D CK-MB (CK-2) 1.1 Troponin I 0.110 H D Total Protein 5.2 L Albumin 2.7 L Globulin 2.5 Albumin/Globulin Ratio 1.0 L Quality Measures - VTE Contraindication to Pharmacological VTE Prophylaxis: High Risk of Bleeding Specialty Discharge - Follow Up or Referrals
[2017-04-22] MEDS: ATORVASTATIN 40 MG TABLET PO SCH (21:35)
[2017-04-23 05:43] LABS: Basophils % 0.1 % (0.0-0.8); Eosinophils # 0.4 10*3/uL (0.0-0.87); Eosinophils % 3.2 % (0.00-10.9); Hematocrit 28.7 VOL% (42.0-52.0); Hemoglobin 9.6 GM/DL (14.0-18.0); Immature Granulocytes % 0.7 %; Immature Granulocytes Absolute 0.09 #; Lymphocytes # 1.8 10*3/uL (1.4-4.0); Mean Corpuscular HGB Conc 33.4 GM/DL (32-36); Mean Corpuscular Hemoglobin 30 PG (27-34); Mean Corpuscular Volume 89.4 FL (87-102); Mean Platelet Volume 10.9 FL (9.6-12.0); Monocytes # 1.2 10*3/uL (0.11-0.8); Monocytes % 8.7 % (1.7-12.7); Neutrophils # 10.2 10*3/uL (1.4-7.4); Neutrophils % 74.3 % (38.7-73.9); Platelet Count 229 T/CUMM (130-400); Red Blood Count 3.21 MC/CUMM (3.8-5.5); Red Cell Distribution Width 13.6 % (9.3-17.3); White Blood Count 13.8 T/CUMM (4-12)
[2017-04-23 06:17] LABS: Alanine Aminotransferase 165 U/L (16-61); Albumin 2.6 G/DL (3.4-5.0); Alkaline Phosphatase 69 U/L (45-117); Aspartate Amino Transferase 76 U/L (0-37); Bilirubin,Indirect 0.6 MG/DL (0.0-1.0); Blood Urea Nitrogen 18 MG/DL (7-18); Calcium 8.2 MG/DL (8.5-10.1); Glucose 111 MG/DL (74-106); Magnesium 2.2 MG/DL (1.8-2.4); Osmolality,Calculated 283.3 MOS/KG (273-304); Potassium 3.9 MMOL/L (3.5-5.1); Sodium 141 MMOL/L (136-145); Total Protein 5.3 G/DL (6.4-8.3)
[2017-04-23 06:19] LABS: Troponin I Only 0.076 NG/ML (0.00-0.045)
--- NOTE | 2017-04-23 08:33 | Cardiothoracic Progress Note ---
Cardiothoracic Subjective Interval history: Patient looks and feels much better. Vital signs are stable and is breathing comfortably. Chest x-ray looks clear. He is increasing his activity. Overall his progress is satisfactory and I think he will be ready for discharge in the morning. Exam (Progress Note) - Constitutional Vitals: Period Temp Pulse Resp BP Sys/Ryan Pulse Ox Last 24 Hr 98.4 F-99.6 F 83-90 16-20 92-118/46-57 91-95 Result/EKG - Labs CBC & BMP: 04/23/17 05:35 04/23/17 05:35 Labs: Laboratory Results - last 24 hr 04/22/17 04/22/17 04/23/17 12:14 15:53 05:35 WBC 13.8 H RBC 3.21 L Hgb 9.6 L Hct 28.7 L MCV 89.4 MCH 30 MCHC 33.4 RDW 13.6 Plt Count 229 MPV 10.9 Neut % (Auto) 74.3 H Lymph % (Auto) 13.0 L [place] % (Auto) 8.7 Eos % (Auto) 3.2 Baso % (Auto) 0.1 Neut # (Auto) 10.2 H Lymph # (Auto) 1.8 [place] # (Auto) 1.2 H Eos # (Auto) 0.4 Baso # (Auto) 0.0 Immature Gran % 0.7 Nucleated RBC % 0.0 Immature Gran # 0.09 Nucleated RBCs # 0.00 Immature Plt Fraction 0.0 Sodium Potassium Chloride Carbon Dioxide Anion Gap BUN Creatinine GFR Calculation BUN/Creatinine Ratio Glucose POC Glucose 133 H 177 H Calculated Osmolality Calcium Magnesium Total Bilirubin Direct Bilirubin Indirect Bilirubin AST ALT Alkaline Phosphatase Total Creatine Kinase CK-MB (CK-2) Troponin I Total Protein Albumin Globulin Albumin/Globulin Ratio 04/23/17 04/23/17 05:35 08:07 WBC RBC Hgb Hct MCV MCH MCHC RDW Plt Count MPV Neut % (Auto) Lymph % (Auto) [place] % (Auto) Eos % (Auto) Baso % (Auto) Neut # (Auto) Lymph # (Auto) [place] # (Auto) Eos # (Auto) Baso # (Auto) Immature Gran % Nucleated RBC % Immature Gran # Nucleated RBCs # Immature Plt Fraction Sodium 141 Potassium 3.9 Chloride 107 Carbon Dioxide 28 Anion Gap 9.9 BUN 18 Creatinine 0.80 GFR Calculation 107 BUN/Creatinine Ratio 22.00 H Glucose 111 H POC Glucose 157 H Calculated Osmolality 283.3 Calcium 8.2 L Magnesium 2.2 Total Bilirubin 0.90 Direct Bilirubin 0.270 H Indirect Bilirubin 0.6 AST 76 H ALT 165 H Alkaline Phosphatase 69 Total Creatine Kinase 30 L D CK-MB (CK-2) < 1.0 Troponin I 0.076 H D Total Protein 5.3 L Albumin 2.6 L Globulin 2.7 Albumin/Globulin Ratio 0.9 L Quality Measures - VTE Contraindication to Pharmacological VTE Prophylaxis: High Risk of Bleeding Specialty Discharge - Follow Up or Referrals
--- NOTE | 2017-04-23 08:52 | EKG Report ---
Stationary ECG Study [facility] Test Date: 04/23/2017 7:43 AM Pat Name: JOSE JASSO Department: Room: 276 Gender: M Communication Equipment Repairer: MANJINDER : 1945 Requested by: Montrell Randolph Order Number: [id number] Tejal MD: BRE HEDRICK Intervals [place] Rate: 79 P: 38 [place]: 141 QRS: 57 QRSD: 93 T: 98 QT: 392 QTc: 427 Interpretive Statements SINUS RHYTHM Electronically Signed On 04-24-17 11:48:46 CDT by BRE HEDRICK [email or web address]
--- NOTE | 2017-04-23 09:25 | XRay Report ---
Exam: XR chest 2V Date: 04/23/2017 4:00 AM Indication: Shortness of breath Comparison: 04/22/2017 Technical:PA lateral Findings Right IJ catheter is present with distal tip in superior vena cava. Sternotomy wires are present. Cardiomegaly is present. Low volume effusions are present. Small amount of subcutaneous air is present over the left chest. No obvious pneumothorax clearly delineated. ASVD is present. There is ossification of costochondral cartilages. Small metallic density superimposes the right lung base with minimal air in the mediastinum Impression: 1. Cardiomegaly and previous sternotomy with stable position right IJ catheter 2. Small amount of subcutaneous air over the left chest 3. Low volume effusions are present bilaterally similar to previous study PROCEDURE INTERPRETED AT [facility] DEPARTMENT OF RADIOLOGY Final Report Signed by: Dr. Jaime Argueta
[2017-04-23] MEDS: LISINOPRIL 10 MG TABLET PO SCH (10:15)
[2017-04-23] MEDS: ASPIRIN CHEW 81 MG TABLET PO SCH (10:15)
[2017-04-23] MEDS: CARVEDILOL 6.25 MG TABLET PO SCH ×2 (10:15→21:25)
[2017-04-23] MEDS: PANTOPRAZOLE 40 MG TABLET PO SCH (10:15)
[2017-04-23] MEDS: CHLORHEXIDINE 0.12% ORAL RINSE 60 ML BOTTLE SWISH/SPIT SCH ×2 (10:15→21:25)
[2017-04-23] MEDS: DOCUSATE SODIUM 100 MG CAPSULE PO SCH (10:15)
[2017-04-23] MEDS: FERROUS SULFATE 325 MG TABLET PO SCH (10:15)
--- NOTE | 2017-04-23 12:51 | Cardiology Progress Note ---
Assessment and Plan (1) S/P CABG x 3 Status: Acute Assessment and plan: Status post bypass grafting 3 with STOVALL to OM, SVG to LAD, and SVG to RCA. Continues to progress well. He is gradually increasing his activity and is using his incentive spirometer. Hopefully change to atorvastatin has not caused his symptoms. We will continue to follow. He was previously on a low- dose her moderate dose low potency statin Zocor 40. Current Visit: Yes (2) CAD (coronary artery disease) Status: Chronic Assessment and plan: Severe three-vessel coronary disease now status post coronary artery bypass grafting 3. Current Visit: Yes Qualifiers: Coronary Disease-Associated Artery/Lesion type: [place] artery [place] vs. transplanted heart: [place] heart Associated angina: without angina Qualified Code(s): I25.10 - Atherosclerotic heart disease of [place] coronary artery without angina pectoris (3) Diabetes Status: Chronic Assessment and plan: Chronic. Current Visit: Yes Qualifiers: Diabetes mellitus type: type 2 (4) Dyslipidemia Status: Chronic Assessment and plan: Continue statin. Atorvastatin was increased to 80 mg PO daily. Monitor this is source of his muscle aches and pains. I think she is recovery from surgery but continue to follow he also has a minimally elevated enzymes that I think are related to surgery. Current Visit: Yes (5) Hypertension Status: Chronic Assessment and plan: Relatively well controlled on current antihypertensive regimen. Current Visit: Yes (6) Obesity (BMI 30.0-34.9) Status: Chronic Assessment and plan: Dietitian consult has been placed. Current Visit: Yes (7) Sleep disorder Status: Chronic Assessment and plan: History of obstructive sleep apnea. Sleep medicine has seen patient this admission. He can be further evaluated with HST / polysymnography after he is somewhat more improved postoperatively. Current Visit: Yes (8) GERD (gastroesophageal reflux disease) Status: Chronic Assessment and plan: Continue PPI. Current Visit: Yes Cardiology - PN: Subj Interval history: Mr. Mccloud states he is having a rather rough day today he thinks he overdid it yesterday. He is up and more mobile. He is very fatigued and is having chest discomfort that seems to be postoperative surgical discomfort. He states he feels like he just wants to sleep today. I have encouraged him to stay up as much as he can. Exam (Progress Note) - Constitutional Vitals: Period Temp Pulse Resp BP Sys/Ryan Pulse Ox Last 24 Hr 97.4 F-99.6 F 81-90 16-20 92-115/46-57 91-95 General appearance: over weight - Head Head exam: Present: normal inspection - Eye Eye exam: Present: EOMI Pupils: Present: SHELL - ENT ENT exam: Present: normal exam - Neck Neck exam: Present: normal inspection - Respiratory Respiratory exam: Present: clear to auscultation bilaterally - Cardiovascular Cardiovascular exam: Present: regular rate and rhythm (No rub) - GI/Abdominal GI/Abdominal exam: Present: normal bowel sounds - Extremities Exam Extremities exam: Present: normal inspection - Back Exam Back exam: Present: normal inspection - Neurological Exam Neurological exam: Present: alert, oriented X3 - Psychiatric Psychiatric exam: Present: normal affect, normal mood - Skin Skin exam: Present: normal color, warm, dry Result/EKG - Labs CBC & BMP: 04/23/17 05:35 04/23/17 05:35 Labs: Laboratory Results - last 24 hr 04/22/17 04/23/17 04/23/17 15:53 05:35 05:35 WBC 13.8 H RBC 3.21 L Hgb 9.6 L Hct 28.7 L MCV 89.4 MCH 30 MCHC 33.4 RDW 13.6 Plt Count 229 MPV 10.9 Neut % (Auto) 74.3 H Lymph % (Auto) 13.0 L [place] % (Auto) 8.7 Eos % (Auto) 3.2 Baso % (Auto) 0.1 Neut # (Auto) 10.2 H Lymph # (Auto) 1.8 [place] # (Auto) 1.2 H Eos # (Auto) 0.4 Baso # (Auto) 0.0 Immature Gran % 0.7 Nucleated RBC % 0.0 Immature Gran # 0.09 Nucleated RBCs # 0.00 Immature Plt Fraction 0.0 Sodium 141 Potassium 3.9 Chloride 107 Carbon Dioxide 28 Anion Gap 9.9 BUN 18 Creatinine 0.80 GFR Calculation 107 BUN/Creatinine Ratio 22.00 H Glucose 111 H POC Glucose 177 H Calculated Osmolality 283.3 Calcium 8.2 L Magnesium 2.2 Total Bilirubin 0.90 Direct Bilirubin 0.270 H Indirect Bilirubin 0.6 AST 76 H ALT 165 H Alkaline Phosphatase 69 Total Creatine Kinase 30 L D CK-MB (CK-2) < 1.0 Troponin I 0.076 H D Total Protein 5.3 L Albumin 2.6 L Globulin 2.7 Albumin/Globulin Ratio 0.9 L 04/23/17 04/23/17 08:07 11:35 WBC RBC Hgb Hct MCV MCH MCHC RDW Plt Count MPV Neut % (Auto) Lymph % (Auto) [place] % (Auto) Eos % (Auto) Baso % (Auto) Neut # (Auto) Lymph # (Auto) [place] # (Auto) Eos # (Auto) Baso # (Auto) Immature Gran % Nucleated RBC % Immature Gran # Nucleated RBCs # Immature Plt Fraction Sodium Potassium Chloride Carbon Dioxide Anion Gap BUN Creatinine GFR Calculation BUN/Creatinine Ratio Glucose POC Glucose 157 H 142 H Calculated Osmolality Calcium Magnesium Total Bilirubin Direct Bilirubin Indirect Bilirubin AST ALT Alkaline Phosphatase Total Creatine Kinase CK-MB (CK-2) Troponin I Total Protein Albumin Globulin Albumin/Globulin Ratio Quality Measures - VTE Contraindication to Pharmacological VTE Prophylaxis: High Risk of Bleeding Specialty Discharge - Follow Up or Referrals
[2017-04-23] MEDS: ATORVASTATIN 40 MG TABLET PO SCH (21:25)
--- NOTE | 2017-04-24 06:40 | Discharge Summary ---
Hospital Course - Hospital Course Hospital Course: History of present illness: Patient is a 72-year-old man who underwent cardiac catheterization for substernal chest discomfort. This demonstrated critical three-vessel coronary disease and the patient was advised to have bypass surgery and he was admitted for that purpose. Past medical history review of systems social history and family history are documented in his admission notes. Hospital course: Patient was taken to surgery where he underwent three-vessel bypass grafting with an internal mammary graft to the obtuse marginal coronary artery and saphenous vein grafts to the anterior descending and right coronary arteries. Postoperative course was marked initially by excessive chest tube drainage which necessitated reentry for control of a single anastomotic bleeding site. Following this the patient made an uncomplicated recovery and was discharged home with instructions to return for follow-up in 1 month. Discharge medications are listed below. Specialty Discharge - Follow Up or Referrals Follow up with: Montrell Mac MD [Physician] - 1 Month Discharge Plan - Discharge Data Disposition: Disch To Home/Self Care Condition at Discharge: Stable Discharge Diet: advance to your usual diet Activity: resume usual activities as tolerated Hygiene: no restrictions Driving: not for (2 weeks) - Discharge Medications Continue Omeprazole [Prilosec] 20 mg PO DAILY Lisinopril 10 mg PO DAILY Etodolac 500 mg PO BID W/MEALS Aspirin 81 mg PO DAILY Simvastatin 40 mg PO BEDTIME Carvedilol [Coreg] 3.125 mg PO DAILY - Follow Up or Referral - Forms/Instructions Instructions: Coronary Artery Disease (GEN), Coronary Artery Bypass Graft (DC) , Left Heart Catheterization (DC), How to Stop Smoking (GEN), Heart Healthy Diet (GEN), Cigarette Smoking and Your Health (GEN), Sternal Precautions (GEN) Exam - Constitutional Vitals: Period Temp Pulse Resp BP Sys/Ryan Pulse Ox Last 24 Hr 97.4 F-99.2 F 73-88 16-20 94-127/52-67 92-97 Discharge Results Procedures and tests throughout hospitalization: Pending Orders 04/16/17 15:45 Fresh Frozen Plasma Routine Red Blood Cells Leuko Red Routine Type and Screen Routine Labs on day of discharge: Labs from last 24 hours 04/23/17 04/23/17 04/23/17 16:27 11:35 08:07 POC Glucose 134 H 142 H 157 H DS: Provider Date of admission: 04/14/17 13:45 Primary care physician: Meghna Reinoso Attending physician on admission: Aide Ho DO Consults: 04/14/17 13:45 Consult to [facility], Educator [CONS] Routine Reason for Architectural Wood Model Maker: Other Consult Comment: diabetic diet and insulin education if relevant 04/16/17 15:20 Consult to Dietitian [CONS] Routine Reason for Dietitian: Other Consult Comment: low salt, low cholesterol, diet 04/18/17 12:16 Consult to Cardiac Rehabilitation [CONS] Routine Reason for Cardiac Rehabilitation: Other Consult Comment: Post CABG/heart surgery Consult to Diabetes Center, Educator [CONS] Routine Reason for Architectural Wood Model Maker: Diabetes Education Initial Insulin Education Consult Comment: insulin education Consult to Dietitian [CONS] Routine Reason for Dietitian: Dietary Consult Consult Comment: Cardiac, low salt, low cholesterol diet Consult to Physical Therapy [CONS] Routine Reason for Physical Therapy: Other Consult Comment: CV Rehab Discharging clinician: Montrell Mac MD Expected date of discharge: 04/24/17
[2017-04-24 08:19] VITALS: BP 127/66
[2017-04-24] MEDS: ASPIRIN CHEW 81 MG TABLET PO SCH (08:56)
[2017-04-24] MEDS: LISINOPRIL 10 MG TABLET PO SCH (08:56)
[2017-04-24] MEDS: PANTOPRAZOLE 40 MG TABLET PO SCH (08:57)
[2017-04-24] MEDS: CARVEDILOL 6.25 MG TABLET PO SCH (08:57)
[2017-04-24] MEDS: DOCUSATE SODIUM 100 MG CAPSULE PO SCH (08:57)
[2017-04-24] MEDS: FERROUS SULFATE 325 MG TABLET PO SCH (08:57)
[2017-04-24] MEDS: CHLORHEXIDINE 0.12% ORAL RINSE 60 ML BOTTLE SWISH/SPIT SCH (09:06)
== END 2017-04-24 10:45 | disposition home or self-care (01) | DRG 234 ==
LOC: N.CL 10:18 → N.TELES 13:45 → N.CVR 04-17 09:59 → N.TELES 04-18 14:57
PROVIDERS: ADMIT Internal Medicine Cardiovascular Disease; ATTEND Internal Medicine Cardiovascular Disease